=== PATIENT | male | born 1960 | race Caucasian/White ===

== ENCOUNTER 2017-09-29 10:28 | Emergency (ER) | payer SELFPAY ==
[~2017-09-29] VITALS: Ht 172.7 cm; Wt 65.0 kg
[~2017-09-29 10:28] MED LIST: OXYC1TAB63 PO
[2017-09-29 10:29] VITALS: BP 149/93; PULSE 116; RESP 20; TEMP 98; O2SAT 95
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
--- NOTE | 2017-09-29 13:51 | RADRPT ---
EXAM DATE/TIME: 09/29/2017 12:46 [facility] COMPARISON: SPINE CERVICAL LATERAL ONLY, September 13, 2017, 10:49. CT CERVICAL SPINE W/O CONTRAST, September 26 17, 23:19. CT CERVICAL SPINE W/O CONTRAST, September 13, 2017, 4:03. INDICATIONS : Fracture C1-C2 halo. Loose halo screws. MEDICAL HISTORY : C1-C2 fractures SURGICAL HISTORY : Halo cervical spine. ENCOUNTER: Initial ACUITY: 2 days PAIN SCORE: 7/10 LOCATION: Cervical spine FINDINGS: AP and lateral view of the cervical spine were obtained as well as odontoid views again demonstrate t he oblique fracture through the body of C2. The alignment of the fracture fragments is not significan tly changed. There is distraction measuring up to approximately 8 mm. The fracture through the arch o f C1 is again visualized and is not significantly changed as well. Artifact from the halo traction de vice is noted. There are degenerative disc changes at the C5-6 and C6-7 levels. Calcifications are no sony in the carotid arteries left greater than right. CONCLUSION: Stable appearance of the C1 and C2 fractures. Vikram Santo MD on September 29, 2017 at 13:47 Board Certified Radiologist. This report was verified electronically.
== END 2017-09-29 14:12 | disposition home or self-care (01) ==
LOC: NEPD 10:28
DX: S12.300D Unspecified displaced fracture of fourth cervical vertebra, subsequent encounter for fracture with routine healing (principal); S12.400D Unspecified displaced fracture of fifth cervical vertebra, subsequent encounter for fracture with routine healing; X58.XXXD Exposure to other specified factors, subsequent encounter
CPT/HCPCS: 72040; 99283

== ENCOUNTER 2017-11-11 02:49 | Inpatient (IN) | payer SELFPAY ==
[~2017-11-11] VITALS: Ht 170.2 cm; Wt 72.2 kg
[2017-11-11 02:55] VITALS: BP 155/84; PULSE 97; RESP 16; TEMP 98.2; O2SAT 97
--- NOTE | 2017-11-11 05:00 | RADRPT ---
EXAM DATE/TIME: 11/11/2017 03:54 [facility] COMPARISON: No previous studies available for comparison. INDICATIONS : Trauma; fall. RADIATION DOSE: 56.35 CTDIvol (mGy) MEDICAL HISTORY : C1-2 fracture SURGICAL HISTORY : Halo ENCOUNTER: Initial ACUITY: 1 day PAIN SCALE: 5/10 LOCATION: Bilateral cranial TECHNIQUE: Multiple contiguous axial images were obtained of the head. Using automated exposure control and adj ustment of the mA and/or kV according to patient size, radiation dose was kept as low as reasonably a chievable to obtain optimal diagnostic quality images. DICOM format image data is available electro nically for review and comparison. FINDINGS: The examination is performed in an external halo which causes streak artifact at the mid convexity im ages, obscuring several levels in the brain.. The ventricles are symmetric in size. No evidence of midline shift. No evidence of intracranial hemorrhage. The posterior fossa structures are grossly i ntact. The calvarium is intact. No skull fracture seen. CONCLUSION: No evidence of hemorrhage or mass effect. No skull fracture seen. Francisco Iyer MD on November 11, 2017 at 4:57 Board Certified Radiologist. This report was verified electronically.
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
[2017-11-11] MEDS ORDERED: PROMETHAZINE INJ 25 MG/ML VIAL IM PRN (05:45)
[2017-11-11] MEDS ORDERED: NALOXONE HCL 0.4 MG/ML AMP IV PUSH PRN (05:45)
[2017-11-11 05:57] VITALS: BP 141/89; PULSE 91; RESP 16; O2SAT 96
[2017-11-11 06:04] LABS: AUTOMATED NEUTROPHIL # 2.9 TH/MM3 (1.8-7.7); BASOPHIL % 0.7 % (0.0-2.0); EOSINOPHIL # 0.2 TH/MM3 (0-0.4); HEMATOCRIT 39.5 % (39.0-51.0); HEMO FLAGS DIFF FINAL; LYMPH % 34.7 % (9.0-44.0); MEAN CELL VOLUME 96.9 FL (80.0-100.0); MEAN CORPUSCULAR HEMOGLOBIN 33.2 PG (27.0-34.0); MEAN CORPUSCULAR HGB CONC 34.2 % (32.0-36.0); MONO % 10.8 % (0.0-8.0); NEUT % 49.8 % (16.0-70.0); PLATELET COUNT 196 TH/MM3 (150-450); RED BLOOD COUNT 4.08 MIL/MM3 (4.50-5.90); RED CELL DISTRIBUTION WIDTH 13.7 % (11.6-17.2); WHITE BLOOD COUNT 5.9 TH/MM3 (4.0-11.0)
[2017-11-11 06:31] LABS: ALT (GPT) 18 U/L (12-78)
[2017-11-11 06:33] LABS: ALKALINE PHOSPHATASE 101 U/L (45-117); ANION GAP 10 MEQ/L (5-15); AST (GOT) 28 U/L (15-37); BICARBONATE 23.7 MEQ/L (21.0-32.0); BLOOD UREA NITROGEN 13 MG/DL (7-18); CHLORIDE 104 MEQ/L (98-107); GLOMERULAR FILTRATION RATE 108 ML/MIN (>89); POTASSIUM 3.9 MEQ/L (3.5-5.1); SODIUM (NA) 138 MEQ/L (136-145); TOTAL BILIRUBIN ADULT 0.2 MG/DL (0.2-1.0)
[2017-11-11] MEDS: ACETAMINOPHEN/HYDROcodone 325 MG/5 MG TAB PO PRN ×3 (08:08→21:05)
[2017-11-11] MEDS: PANTOPRAZOLE SOD 40 MG DELAYED RELEASE TAB PO SCH (09:29)
[2017-11-11] MEDS: DOCUSATE SODIUM 100 MG CAP PO SCH ×2 (09:29→21:04)
[2017-11-11 09:30] VITALS: BP 135/84; PULSE 103; RESP 16; O2SAT 99
[2017-11-11] MEDS ORDERED: LIDOCAINE 1%/EPINEPHrine 1:100,000 SOLN 20 ML VIAL INFIL ONE (11:30)
[2017-11-11] MEDS ORDERED: BACT800T5 PO (13:05)
[2017-11-11 13:32] VITALS: BP 161/89; PULSE 112; RESP 18; O2SAT 96
--- NOTE | 2017-11-11 13:37 | RADRPT ---
EXAM DATE/TIME: 11/11/2017 13:06 [facility] COMPARISON: SPINE CERVICAL LTD (AP&LAT), September 29, 2017, 12:46. INDICATIONS : Halo replacement. MEDICAL HISTORY : C1-2 fracture. SURGICAL HISTORY : Halo. ENCOUNTER: Initial ACUITY: 1 day PAIN SCORE: 9/10 LOCATION: Cervical spine. FINDINGS: AP and lateral views of the cervical spine were obtained. There is redemonstration of an oblique frac ture through the body of C2. Fracture alignment is not significantly changed with stable approximatel y 7mm anterior distraction of the distal fragment. Redemonstration of fracture through the arch of C1 which also appears unchanged. There is a halo device in place. Degenerative change of the lower cerv ical spine also unchanged. No new acute bony fractures. Sagittal alignment is maintained. CONCLUSION: 1. Stable appearance of C1 and C2 fractures, as above. Pierre Vázquez MD on November 11, 2017 at 13:26 Board Certified Radiologist. This report was verified electronically.
[2017-11-11 16:00] VITALS: BP 167/94; PULSE 93; RESP 16; TEMP 98; O2SAT 95
[2017-11-11] MEDS: VANCOMYCIN INJ 1,000 MG in SODIUM CHLOR 0.9% 250 ML INJ 250 ML IV SCH (16:00)
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
--- NOTE | 2017-11-11 19:11 | PD.OP ---
Operative Report Date of Surgery: Nov 11, 2017 Preoperative Diagnosis: (1) Traumatic disp spondylolisthesis of C2 vertebra with closed fracture Traumatic displaced spondylolisthesis of the axis with C1 arch fracture Postoperative Diagnosis: (1) Traumatic disp spondylolisthesis of C2 vertebra with closed fracture Procedure: Halo placement Anesthesia: 1% Xylocaine local anesthetic Surgeon: Atul Duran [employer] Worker(s): [employer] Operation and Findings: The treatment options, procedure indications, risks and possible complications were fully discussed with the patient prior to the procedure and informed consent obtained signed and witnessed. The procedure was performed in the [facility] emergency room. The occipital pin site regions were shaved in the frontal and occipital regions were prepped with Betadine. Using sterile technique, 1% Xylocaine with epinephrine was infiltrated into the pin placement sites at the frontal and occipital regions. The undersigned maintained control of the halo ring and the pins were advanced to the cranium and secured with the torque wrench in the bilateral frontal and occipital region. The halo jacket was placed and the post secured to the halo ring in each quadrant and tightened using the torque wrench. The locking nuts were secured each pin site. Head position was checked and felt to be satisfactory. Patient's neurologic status remained stable during the procedure. There was no blood loss. Atul Duran MD Nov 11, 2017 19:11
[2017-11-11 20:00] VITALS: BP 165/87; PULSE 95; RESP 18; TEMP 97.6; O2SAT 98
[2017-11-11] MEDS: traMADol HCL 50 MG TAB PO PRN (23:38)
[2017-11-12] VITALS (7 sets, daily range): BP systolic 149–183; BP diastolic 82–106; PULSE 77–105; RESP 18–20; TEMP 97.8–99.1; O2SAT 95–100
[2017-11-12] MEDS: ACETAMINOPHEN/HYDROcodone 325 MG/5 MG TAB PO PRN ×6 (02:17→23:15)
[2017-11-12] MEDS ORDERED: ENALAPRILAT 1.25 MG/ML VIAL IV PUSH PRN (05:45)
[2017-11-12] MEDS: VANCOMYCIN INJ 1,000 MG in SODIUM CHLOR 0.9% 250 ML INJ 250 ML IV SCH ×2 (06:05→15:06)
[2017-11-12 08:12] LABS: PROTHROMBIN TIME - PATIENT 10.1 SEC (9.8-11.6)
[2017-11-12] MEDS: PANTOPRAZOLE SOD 40 MG DELAYED RELEASE TAB PO SCH (08:33)
[2017-11-12] MEDS: DOCUSATE SODIUM 100 MG CAP PO SCH ×2 (08:33→21:01)
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
[2017-11-13] VITALS: BP 153/94; PULSE 85; RESP 18; TEMP 98; O2SAT 95
[2017-11-13] MEDS: ACETAMINOPHEN/HYDROcodone 325 MG/5 MG TAB PO PRN ×5 (03:59→21:27)
[2017-11-13 04:00] VITALS: BP 168/98; PULSE 86; RESP 18; TEMP 97.9; O2SAT 97
[2017-11-13] MEDS: VANCOMYCIN INJ 1,000 MG in SODIUM CHLOR 0.9% 250 ML INJ 250 ML IV SCH ×2 (04:00→15:08)
[2017-11-13 06:17] LABS: HEMATOCRIT 37.8 % (39.0-51.0); MEAN CORPUSCULAR HEMOGLOBIN 33.6 PG (27.0-34.0); MEAN CORPUSCULAR HGB CONC 34.3 % (32.0-36.0); PLATELET COUNT 152 TH/MM3 (150-450); RED BLOOD COUNT 3.86 MIL/MM3 (4.50-5.90); RED CELL DISTRIBUTION WIDTH 14.1 % (11.6-17.2); REVIEW FLAG FINAL; WHITE BLOOD COUNT 4.5 TH/MM3 (4.0-11.0)
[2017-11-13] MEDS: DOCUSATE SODIUM 100 MG CAP PO SCH ×2 (08:01→21:26)
[2017-11-13] MEDS: PANTOPRAZOLE SOD 40 MG DELAYED RELEASE TAB PO SCH (08:01)
[2017-11-13 08:09] VITALS: BP 168/109; PULSE 89; RESP 20; TEMP 97.8; O2SAT 97
[2017-11-13 12:18] VITALS: BP 142/87; PULSE 90; RESP 20; TEMP 98; O2SAT 98
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
[2017-11-13 16:27] VITALS: BP 151/91; PULSE 88; RESP 20; TEMP 98.1; O2SAT 98
[2017-11-13 20:00] VITALS: BP 145/84; PULSE 97; RESP 20; TEMP 98.3
[2017-11-14 00:14] VITALS: BP 148/81; PULSE 82; RESP 20; TEMP 98.3; O2SAT 97
[2017-11-14] MEDS: ACETAMINOPHEN/HYDROcodone 325 MG/5 MG TAB PO PRN ×5 (01:36→20:07)
[2017-11-14] MEDS: VANCOMYCIN INJ 1,000 MG in SODIUM CHLOR 0.9% 250 ML INJ 250 ML IV SCH ×2 (04:20→15:29)
[2017-11-14 04:29] VITALS: BP 149/98; PULSE 97; RESP 20; TEMP 97.5; O2SAT 98
[2017-11-14 08:00] VITALS: BP 158/96; PULSE 79; RESP 18; TEMP 98.4; O2SAT 97
[2017-11-14] MEDS: DOCUSATE SODIUM 100 MG CAP PO SCH ×2 (08:08→20:07)
[2017-11-14] MEDS: PANTOPRAZOLE SOD 40 MG DELAYED RELEASE TAB PO SCH (08:08)
[2017-11-14 12:00] VITALS: BP 126/85; PULSE 88; RESP 18; TEMP 97.4; O2SAT 97
[2017-11-14] MEDS: traMADol HCL 50 MG TAB PO PRN ×2 (12:19→21:17)
[2017-11-14 16:00] VITALS: BP 157/88; PULSE 89; RESP 18; TEMP 97.8; O2SAT 97
--- NOTE | 2017-11-14 16:10 | HHI.NSPN ---
no complaints History Chief Complaint: Pain to the pin sites but it is better. Interval History No change Feeling better System Review Comments no change Exam Results Vital Signs Date Time Temp Pulse Resp B/P (MAP) Pulse Ox O2 Delivery O2 Flow Rate FiO2 11/14/17 12:00 97.4 88 18 126/85 (99) 97 11/11/17 13:32 Room Air Intake and Output 11/14/17 11/14/17 11/15/17 08:00 16:00 00:00 Intake Total 250 ml Balance 250 ml Physical Examination Alert and awake. Follows commands In halo vest Infected pin sites much improved Ambulates well Medical Decision Making Impression and Plan Doing well P: Arrangements for discharge not complete Total Minutes: 15 Alex Rm MD Nov 14, 2017 16:10
[2017-11-14 20:00] VITALS: BP 139/90; PULSE 88; RESP 20; TEMP 98; O2SAT 97
[2017-11-15] VITALS: BP 148/91; PULSE 78; RESP 18; TEMP 98; O2SAT 98
[2017-11-15] MEDS: ACETAMINOPHEN/HYDROcodone 325 MG/5 MG TAB PO PRN ×5 (00:18→20:06)
[2017-11-15 04:00] VITALS: BP 135/94; PULSE 76; RESP 18; TEMP 97.7; O2SAT 97
[2017-11-15] MEDS: VANCOMYCIN INJ 1,000 MG in SODIUM CHLOR 0.9% 250 ML INJ 250 ML IV SCH ×2 (04:19→16:12)
[2017-11-15 08:00] VITALS: BP 132/76; PULSE 87; RESP 18; TEMP 97.8; O2SAT 96
[2017-11-15] MEDS: DOCUSATE SODIUM 100 MG CAP PO SCH ×2 (09:05→20:06)
[2017-11-15] MEDS: PANTOPRAZOLE SOD 40 MG DELAYED RELEASE TAB PO SCH (09:05)
[2017-11-15 12:00] VITALS: BP 123/71; PULSE 71; RESP 18; TEMP 98.3; O2SAT 98
--- NOTE | 2017-11-15 13:03 | HHI.NSPN ---
History Chief Complaint: No complaints Interval History No change Feeling better Sitting in bed System Review Comments no change Exam Results Vital Signs Date Time Temp Pulse Resp B/P (MAP) Pulse Ox O2 Delivery O2 Flow Rate FiO2 11/15/17 12:00 98.3 71 18 123/71 (88) 98 11/11/17 13:32 Room Air Physical Examination Alert and awake. Follows commands In halo vest Infected pin sites much improved Ambulates well On IV Vanco Medical Decision Making Impression and Plan Doing well P: Disposition to be completed Total Minutes: 15 Alex Rm MD Nov 15, 2017 13:03
[2017-11-15 16:00] VITALS: BP 132/87; PULSE 92; RESP 18; TEMP 98.5; O2SAT 96
[2017-11-15] MEDS: traMADol HCL 50 MG TAB PO PRN ×2 (17:33→21:38)
[2017-11-15 20:00] VITALS: BP 133/80; PULSE 84; RESP 18; TEMP 98.7; O2SAT 96
[2017-11-16] VITALS: BP 149/91; PULSE 76; RESP 18; TEMP 97.8; O2SAT 98
[2017-11-16] MEDS: ACETAMINOPHEN/HYDROcodone 325 MG/5 MG TAB PO PRN ×3 (00:13→08:35)
[2017-11-16] MEDS: traMADol HCL 50 MG TAB PO PRN ×4 (01:41→20:24)
[2017-11-16 04:30] VITALS: BP 152/95; PULSE 76; RESP 18; TEMP 98.7; O2SAT 97
[2017-11-16] MEDS: VANCOMYCIN INJ 1,000 MG in SODIUM CHLOR 0.9% 250 ML INJ 250 ML IV SCH (04:31)
[2017-11-16 08:16] VITALS: BP 142/92; PULSE 78; RESP 18; TEMP 97.3; O2SAT 96
[2017-11-16] MEDS: PANTOPRAZOLE SOD 40 MG DELAYED RELEASE TAB PO SCH (08:36)
[2017-11-16] MEDS: DOCUSATE SODIUM 100 MG CAP PO SCH ×2 (08:37→20:24)
[2017-11-16 12:28] VITALS: BP 118/77; PULSE 79; RESP 17; TEMP 97.6; O2SAT 95
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
[2017-11-16 16:51] VITALS: BP 123/86; PULSE 86; RESP 18; TEMP 97.7; O2SAT 97
[2017-11-16 20:00] VITALS: BP 132/81; PULSE 91; RESP 18; TEMP 98.2; O2SAT 97
[2017-11-17] VITALS: BP 137/78; PULSE 73; RESP 18; TEMP 98.1; O2SAT 97
[2017-11-17] MEDS: traMADol HCL 50 MG TAB PO PRN ×4 (00:33→21:14)
[2017-11-17 04:00] VITALS: BP 126/81; PULSE 71; RESP 18; TEMP 97; O2SAT 98
[2017-11-17 08:06] VITALS: BP 131/89; PULSE 76; RESP 18; TEMP 97.3; O2SAT 97
[2017-11-17] MEDS: PANTOPRAZOLE SOD 40 MG DELAYED RELEASE TAB PO SCH (09:10)
[2017-11-17] MEDS: DOCUSATE SODIUM 100 MG CAP PO SCH ×2 (09:10→21:14)
[2017-11-17] MEDS: ACETAMINOPHEN/HYDROcodone 325 MG/5 MG TAB PO PRN ×3 (09:11→17:34)
[2017-11-17 12:31] VITALS: BP 128/79; PULSE 81; RESP 18; TEMP 98; O2SAT 96
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
[2017-11-17 16:07] VITALS: BP 127/80; PULSE 90; RESP 17; TEMP 98.2; O2SAT 96
[2017-11-17 20:00] VITALS: BP 138/78; PULSE 90; RESP 18; TEMP 98.1; O2SAT 97
[2017-11-18] VITALS: BP 138/82; PULSE 77; RESP 18; TEMP 97.4; O2SAT 97
[2017-11-18] MEDS: traMADol HCL 50 MG TAB PO PRN ×4 (01:22→16:49)
[2017-11-18 04:00] VITALS: BP 122/78; PULSE 75; RESP 18; TEMP 97.3; O2SAT 95
[2017-11-18 08:00] VITALS: BP 131/87; PULSE 82; RESP 18; TEMP 97.2; O2SAT 97
[2017-11-18] MEDS: DOCUSATE SODIUM 100 MG CAP PO SCH ×2 (08:11→21:16)
[2017-11-18] MEDS: PANTOPRAZOLE SOD 40 MG DELAYED RELEASE TAB PO SCH (08:13)
[2017-11-18 12:00] VITALS: BP 131/85; PULSE 79; RESP 18; TEMP 97.9; O2SAT 98
[2017-11-18 16:39] VITALS: BP 136/88; PULSE 91; RESP 18; TEMP 97.9; O2SAT 98
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
[2017-11-18 21:16] VITALS: BP 133/74; PULSE 86; RESP 16; TEMP 98.2; O2SAT 98
[2017-11-18] MEDS: ACETAMINOPHEN/HYDROcodone 325 MG/5 MG TAB PO PRN (21:16)
[2017-11-19 00:31] VITALS: BP 135/84; PULSE 81; RESP 16; TEMP 98.3; O2SAT 98
[2017-11-19] MEDS: ACETAMINOPHEN/HYDROcodone 325 MG/5 MG TAB PO PRN ×2 (01:19→07:54)
[2017-11-19 05:22] VITALS: BP 129/83; PULSE 74; RESP 16; TEMP 97.5; O2SAT 98
[2017-11-19 08:01] VITALS: BP 113/74; PULSE 79; RESP 20; TEMP 97.4; O2SAT 98
[2017-11-19] MEDS: PANTOPRAZOLE SOD 40 MG DELAYED RELEASE TAB PO SCH (08:35)
[2017-11-19] MEDS: DOCUSATE SODIUM 100 MG CAP PO SCH (08:35)
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
--- NOTE | 2017-11-19 09:52 | HHI.FF ---
Face to Face Verification Diagnosis: (1) Traumatic disp spondylolisthesis of C2 vertebra with closed fracture (2) ETOH abuse Home Health Nursing Order: Signs/symptoms of disease process Wound care and dressing changes Nursing assessment with vital signs I have seen patient Jag Addison on 11/19/17. My clinical findings support the need for the requested home health care services because: Deconditioned w/ increased weakness High risk of falls I certify that my clinical findings support that this patient is homebound because: Unable to use public transportation Familia Richardson Nov 19, 2017 9:52 am
[2017-11-19] MEDS: traMADol HCL 50 MG TAB PO PRN (12:22)
[2017-11-19 12:38] VITALS: BP 108/69; PULSE 90; RESP 20; TEMP 97.3; O2SAT 98
[2017-11-19 13:27] VITALS: RESP 16
--- NOTE | 2017-11-19 14:29 | HHI.FF ---
Face to Face Verification Diagnosis: (1) Traumatic disp spondylolisthesis of C2 vertebra with closed fracture (2) ETOH abuse Home Health Nursing Order: Signs/symptoms of disease process Nursing assessment with vital signs (pin site care bid with saline and hydrogen peroxide.) I have seen patient Jag Addison on 11/19/17. My clinical findings support the need for the requested home health care services because: Deconditioned w/ increased weakness High risk of falls I certify that my clinical findings support that this patient is homebound because: Post-op weakness Unable to use public transportation Familia Richardson Nov 19, 2017 2:29 pm
--- NOTE | 2017-11-19 14:32 | HHI.FF ---
Face to Face Verification Diagnosis: (1) Cellulitis (2) Traumatic disp spondylolisthesis of C2 vertebra with closed fracture [employer] Order: To Evaluate: Living conditions/environment, Support services Order: To Provide: Long range planning, Community services I have seen patient Jag Addison on 11/19/17. My clinical findings support the need for the requested home health care services because: Deconditioned w/ increased weakness High risk of falls I certify that my clinical findings support that this patient is homebound because: Post-op weakness Unable to use public transportation Familia Richardson Nov 19, 2017 2:32 pm
== END 2017-11-19 14:51 | disposition home health service (06) | DRG 560 ==
LOC: NEPE 02:49 → NEDA 05:29 → OBSVTOIN 13:59 → N05A 15:22
PROVIDERS: ADMIT Neurological Surgery; ATTEND Neurological Surgery
PROC: 2W60X0Z Traction of Head using Traction Apparatus (ICD-10-PCS; principal; 2017-11-11)
PROC: 2W50X0Z Removal of Traction Apparatus on Head (ICD-10-PCS; 2017-11-11)
DX: T84.69XA Infection and inflammatory reaction due to internal fixation device of other site, initial encounter (principal); T85.628A Displacement of other specified internal prosthetic devices, implants and grafts, initial encounter; I10 Essential (primary) hypertension; G62.9 Polyneuropathy, unspecified; S12.13 Unspecified traumatic spondylolisthesis of second cervical vertebra; S12.000G Unspecified displaced fracture of first cervical vertebra, subsequent encounter for fracture with delayed healing; S12.390D Other displaced fracture of fourth cervical vertebra, subsequent encounter for fracture with routine healing; S12.0 Fracture of first cervical vertebra; E11.9 Type 2 diabetes mellitus without complications; I49.9 Cardiac arrhythmia, unspecified; F10.10 Alcohol abuse, uncomplicated; F17.210 Nicotine dependence, cigarettes, uncomplicated; F32.9 Major depressive disorder, single episode, unspecified; F41.9 Anxiety disorder, unspecified; W19.XXXA Unspecified fall, initial encounter; V13.4XXD Pedal cycle driver injured in collision with car, pick-up truck or van in traffic accident, subsequent encounter; Y93.55 Activity, bike riding; Z59.0 Homelessness; Z88.0 Allergy status to penicillin; Z91.19 Patient's noncompliance with other medical treatment and regimen
CPT/HCPCS: 70450; 72040; 72125; 80053; 85025; 85027; 85610; 86403; 87070; 87205; 94150; J3010; J3370; J7050; L0150; L0172; L0810

== ENCOUNTER 2017-11-21 15:20 | Emergency (ER) | payer SELFPAY ==
[~2017-11-21] VITALS: Ht 170.2 cm; Wt 72.5 kg
[~2017-11-21 15:20] MED LIST changes: +BACT800T5 PO; -OXYC1TAB63 PO
[2017-11-21 15:25] VITALS: BP 103/67; PULSE 106; RESP 14; TEMP 98.2; O2SAT 99
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
[2017-11-21] MEDS ORDERED: HYDR-3516 PO (18:10)
[2017-11-21] MEDS ORDERED: ACETAMINOPHEN/HYDROcodone 325 MG/5 MG TAB PO ONE (18:15)
== END 2017-11-21 18:52 | disposition home or self-care (01) ==
LOC: NEPD 15:20
DX: M54.2 Cervicalgia (principal); R51 Headache; E11.9 Type 2 diabetes mellitus without complications; E78.00 Pure hypercholesterolemia, unspecified; F32.9 Major depressive disorder, single episode, unspecified; F41.9 Anxiety disorder, unspecified; F17.200 Nicotine dependence, unspecified, uncomplicated; F12.90 Cannabis use, unspecified, uncomplicated
CPT/HCPCS: 99283

== ENCOUNTER 2017-11-23 13:01 | Emergency (ER) | payer OTHER ==
[~2017-11-23] VITALS: Ht 162.6 cm; Wt 70.0 kg
[~2017-11-23 13:01] MED LIST changes: +HYDR-3516 PO
[2017-11-23 13:28] VITALS: BP 122/77; PULSE 93; RESP 15; TEMP 97.9; O2SAT 96
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
[2017-11-23] MEDS ORDERED: HYDR7.5T76 PO (14:57)
== END 2017-11-23 15:30 | disposition home or self-care (01) ==
LOC: NEPE 13:01
DX: R52 Pain, unspecified (principal); S12.9XXD Fracture of neck, unspecified, subsequent encounter; F41.9 Anxiety disorder, unspecified; F32.9 Major depressive disorder, single episode, unspecified; E78.00 Pure hypercholesterolemia, unspecified; E11.9 Type 2 diabetes mellitus without complications; F17.200 Nicotine dependence, unspecified, uncomplicated; V03.90XA Pedestrian on foot injured in collision with car, pick-up truck or van, unspecified whether traffic or nontraffic accident, initial encounter; X58.XXXD Exposure to other specified factors, subsequent encounter
CPT/HCPCS: 70450; 72110; 72125; 99285

== ENCOUNTER 2017-11-27 21:44 | Emergency (ER) | payer SELFPAY ==
[~2017-11-27] VITALS: Ht 170.2 cm; Wt 64.0 kg
[~2017-11-27 21:44] MED LIST changes: +HYDR7.5T76 PO
[2017-11-27 21:50] VITALS: BP 138/97; PULSE 81; RESP 18; TEMP 97.7; O2SAT 98
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
== END 2017-11-27 23:18 | disposition home or self-care (01) ==
LOC: NEPD 21:44
DX: S09.90XA Unspecified injury of head, initial encounter (principal); F41.9 Anxiety disorder, unspecified; F32.9 Major depressive disorder, single episode, unspecified; E78.00 Pure hypercholesterolemia, unspecified; F17.200 Nicotine dependence, unspecified, uncomplicated; W10.1XXA Fall (on)(from) sidewalk curb, initial encounter; W01.0XXA Fall on same level from slipping, tripping and stumbling without subsequent striking against object, initial encounter
CPT/HCPCS: 70450; 72125; 99285

== ENCOUNTER 2017-12-11 01:08 | Emergency (ER) | payer SELFPAY ==
[~2017-12-11] VITALS: Ht 177.8 cm; Wt 75.0 kg
[2017-12-11 01:18] VITALS: BP 118/80; PULSE 82; RESP 16; TEMP 96.7; O2SAT 99
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
[2017-12-19] MEDS ORDERED: CHLO10CA5 PO (04:15)
== END 2017-12-11 02:56 | disposition home or self-care (01) ==
LOC: NEPD 01:08
DX: Z04.3 Encounter for examination and observation following other accident (principal); Y04.8XXA Assault by other bodily force, initial encounter; Y92.512 Supermarket, store or market as the place of occurrence of the external cause
CPT/HCPCS: 99281

== ENCOUNTER 2017-12-18 20:37 | Emergency (ER) | payer SELFPAY ==
[2017-12-18 21:45] LABS: ALCOHOL 393 MG/DL (0-5)
[2017-12-19] MEDS: ACETAMINOPHEN 325 MG TAB PO (02:18)
[2017-12-19] MEDS: LORazepam 2 MG/ML VIAL IV PUSH (03:56)
== END 2017-12-19 05:06 | disposition home or self-care (01) ==
LOC: PHED 12-19 05:06
DX: S12.130A Unspecified traumatic displaced spondylolisthesis of second cervical vertebra, initial encounter for closed fracture (principal); Y33.XXXA Other specified events, undetermined intent, initial encounter; Y92.512 Supermarket, store or market as the place of occurrence of the external cause; F10.20 Alcohol dependence, uncomplicated; Z72.0 Tobacco use
CPT/HCPCS: 70450; 72125; 80307; 96374; 99285-25

== ENCOUNTER 2017-12-19 11:46 | Observation (INO) | payer SELFPAY ==
[~2017-12-19] VITALS: Ht 170.2 cm; Wt 74.0 kg
[~2017-12-19 11:46] MED LIST changes: -BACT800T5 PO; +CHLO10CA5 PO; -HYDR-3516 PO; -HYDR7.5T76 PO
[2017-12-19 11:52] VITALS: BP 140/81; PULSE 73; RESP 19; TEMP 97.5; O2SAT 97
--- NOTE | 2017-12-19 11:57 | PD ---
HPI Chief Complaint: alcohol intoxication Time Seen by Provider: 11:50 Travel History International Travel<30 days: No Contact w/Intl Traveler<30days: No Traveled to known affect area: No History of Present Illness HPI The patient is a 57-year-old male who presents to the emergency department for alcohol intoxication. [facility], apparently intoxicated. The patient does admit to drinking alcohol today. The patient has a history of recent cervical fractures, underwent halo therapy and is now wearing a collar. The patient was seen at [facility] last night where he had a CT the brain and cervical spine obtained, these images were reviewed by Dr. Duran who states it is stable, and the patient was advised to follow-up with a neurosurgeon on an outpatient basis. It was also noted the patient missed his appointment in October with follow-up in regards to neurosurgery. He denies any acute injury since he was evaluated last night, does admit to drinking alcohol. He is requesting Tylenol for his chronic neck pain and something to drink. He denies any weakness or numbness of the upper or lower extremities. He denies any chest pain, shortness breath, nausea, vomiting, or abdominal pain. PFSH Past Medical History Asthma: No Blood Disorders: Yes Anxiety: Yes Depression: Yes Heart Rhythm Problems: Yes Cancer: No Cardiovascular Problems: No High Cholesterol: Yes Chemotherapy: Yes Chest Pain: Yes Congestive Heart Failure: No COPD: No Diabetes: No (DENIED) Diminished Hearing: No Endocrine: No Gastrointestinal Disorders: No Genitourinary: No Hypertension: No Immune Disorder: No Implanted Vascular Access Dvce: Yes (halo) Musculoskeletal: No Neurologic: No Psychiatric: No Reproductive: No Respiratory: No Immunizations Current: Yes Radiation Therapy: No Sleep Apnea: No Thyroid Disease: No Past Surgical History Neurologic Surgery: Yes (HALO) Other Surgery: Yes (right tesitcle removed) Social History Alcohol Use: Yes (DAILY) Tobacco Use: Yes (1/2 PPD) Substance Use: No Allergies-Medications (Allergen,Severity, Reaction): Coded Allergies: Fish Containing Products (Unverified Allergy, Severe, Anaphylaxis, 12/19/17 ) penicillin G (Unverified Allergy, Unknown, 12/19/17) Reported Meds & Prescriptions Reported Meds & Active Scripts Active No Active Prescriptions or Reported Medications Review of Systems Except as stated in HPI: all other systems reviewed are Neg HENT: Positive: Neck Pain (chronic neck pain status post halo placement and removal) Cardiovascular: No: Chest Pain or Discomfort Respiratory: No: Shortness of Breath Gastrointestinal: No: Nausea, Vomiting, Abdominal Pain Neurologic: No: Headache, Paresthesia, Sensory Disturbance Physical Exam Narrative GENERAL: Awake, alert, nontoxic-appearing 57-year-old male who appears his stated age and is in no acute respiratory distress. He does appear disheveled and intoxicated. SKIN: Focused skin assessment warm/dry. HEAD: Atraumatic. Normocephalic. EYES: Pupils equal and round. Mild injection bilaterally. ENT: No nasal bleeding or discharge. Breath smells of alcohol. NECK: Trachea midline. No JVD. Soft collar in place. CARDIOVASCULAR: Regular rate and rhythm. No murmur appreciated. RESPIRATORY: No accessory muscle use. Clear to auscultation. Breath sounds equal bilaterally. GASTROINTESTINAL: Abdomen soft, non-tender, nondistended. MUSCULOSKELETAL: No obvious deformities. No clubbing. No cyanosis. No edema. NEUROLOGICAL: Awake and alert. No obvious cranial nerve deficits. Motor grossly within normal limits. Normal speech. Nonfocal. Oriented 3. Moves his upper and lower extremities without difficulty. PSYCHIATRIC: Appears intoxicated. Data Data Last Documented VS Vital Signs Date Time Temp Pulse Resp B/P (MAP) Pulse Ox O2 Delivery O2 Flow Rate FiO2 12/19/17 11:52 97.5 73 19 140/81 (100) 97 Orders Orders Alcohol (Ethanol) (12/19/17 11:53) Basic Metabolic Panel (Bmp) (12/19/17 11:53) Acetaminophen (Tylenol) (12/19/17 12:00) Labs Laboratory Tests Test 12/19/17 12:05 Blood Urea Nitrogen 9 MG/DL Creatinine 0.74 MG/DL Random Glucose 89 MG/DL Calcium Level 8.7 MG/DL Sodium Level 138 MEQ/L Potassium Level 4.3 MEQ/L Chloride Level 102 MEQ/L Carbon Dioxide Level 25.0 MEQ/L Anion Gap 11 MEQ/L Estimat Glomerular Filtration Rate 110 ML/MIN Ethyl Alcohol Level 384 MG/DL MDM Medical Decision Making Medical Screen Exam Complete: Yes Emergency Medical Condition: Yes Medical Record Reviewed: Yes Interpretation(s) Laboratory Tests Test 12/19/17 12:05 Blood Urea Nitrogen 9 MG/DL Creatinine 0.74 MG/DL Random Glucose 89 MG/DL Calcium Level 8.7 MG/DL Sodium Level 138 MEQ/L Potassium Level 4.3 MEQ/L Chloride Level 102 MEQ/L Carbon Dioxide Level 25.0 MEQ/L Anion Gap 11 MEQ/L Estimat Glomerular Filtration Rate 110 ML/MIN Ethyl Alcohol Level 384 MG/DL Differential Diagnosis Differential diagnosis includes alcohol intoxication, chronic neck pain, recent cervical fractures, hyponatremia, inability to care for self, alcohol abuse. Narrative Course Labs are drawn and sent. The patient was administered Tylenol orally for pain. I reviewed the patient's CT of the brain and neck that he had performed last night as well as the physician's note and conversation with neurosurgery. The patient denies any acute trauma, no indication for acute imaging. Sodium level is normal, however, alcohol levels noted at 384. Patient was allowed to sleep off the alcohol in the emergency department as he is homeless and has no family or friends he can pick him up to take him to a place of residence. He is advised to stop drinking alcohol heavily and a follow-up at [facility]. He is also advised to follow-up with neurosurgery as previously directed. Diagnosis Primary Impression: Alcohol intoxication Qualified Codes: F10.920 - Alcohol use, unspecified with intoxication, uncomplicated Additional Impression: Traumatic disp spondylolisthesis of C2 vertebra with closed fracture Qualified Codes: S12.130G - Unspecified traumatic displaced spondylolisthesis of second cervical vertebra, subsequent encounter for fracture with delayed healing Patient Instructions: General Instructions Additional Instructions: Decrease alcohol use. Follow-up with neurosurgery and stroke [facility]'s previously directed. Scripts No Active Prescriptions or Reported Meds Disposition: 01 DISCHARGE HOME Condition: Stable Brice Oviedo MD Dec 19, 2017 11:57
[2017-12-19] MEDS ORDERED: ACETAMINOPHEN 325 MG TAB PO ONE (12:00)
[2017-12-19 12:44] LABS: CALCIUM 8.7 MG/DL (8.5-10.1); CREATININE 0.74 MG/DL (0.60-1.30)
[2017-12-19 16:00] VITALS: BP 121/86; PULSE 77; RESP 16; O2SAT 94
[2017-12-19 19:26] VITALS: BP 130/86; PULSE 78; RESP 18; O2SAT 99
[2017-12-20] VITALS (9 sets, daily range): BP systolic 140–161; BP diastolic 80–90; PULSE 72–104; RESP 18–20; TEMP 97.9–98.4; O2SAT 94–97
[2017-12-20] MEDS ORDERED: chlordiazePOXIDE 25 MG CAP PO ONE (02:15)
[2017-12-20] MEDS ORDERED: LORazepam 2 MG/ML VIAL IV PUSH ONE (02:15)
--- NOTE | 2017-12-20 04:49 | PD ---
Physical Exam Narrative Patient signed out to me at shift change with instructions for observation and reevaluation awaiting clinical sobriety. Patient is markedly elevated: was seen here yesterday status post fall while intoxicated, sustained a neck injury , had a negative workup and was discharged. Patient then presented again tonight status post fall secondary to intoxication. Patient currently resting comfortably, arousable, clinically intoxicated Data Data Last Documented VS Vital Signs Date Time Temp Pulse Resp B/P (MAP) Pulse Ox O2 Delivery O2 Flow Rate FiO2 12/20/17 02:29 94 18 140/80 (100) 94 Room Air 12/19/17 11:52 97.5 Orders Orders Alcohol (Ethanol) (12/19/17 11:53) Basic Metabolic Panel (Bmp) (12/19/17 11:53) Acetaminophen (Tylenol) (12/19/17 12:00) Lorazepam Inj (Ativan Inj) (12/20/17 02:15) Chlordiazepoxide (Librium) (12/20/17 02:15) Labs Laboratory Tests Test 12/19/17 12:05 Blood Urea Nitrogen 9 MG/DL Creatinine 0.74 MG/DL Random Glucose 89 MG/DL Calcium Level 8.7 MG/DL Sodium Level 138 MEQ/L Potassium Level 4.3 MEQ/L Chloride Level 102 MEQ/L Carbon Dioxide Level 25.0 MEQ/L Anion Gap 11 MEQ/L Estimat Glomerular Filtration Rate 110 ML/MIN Ethyl Alcohol Level 384 MG/DL [facility] Medical Record Reviewed: Yes Supervised Visit with JAUN: Yes Differential Diagnosis Alcohol intoxication, altered mental status Narrative Course Patient was observed for clinical sobriety. Laboratory for patient's calculated alcohol level would reach legal sobriety, patient awakened is ambulatory with narrow-based gait advocating for himself noting resting and intention tremors area to a call withdrawal. Patient is given Ativan 2 mg IV and Librium 50 mg by mouth. Patient appeared to be resting comfortably however when patient attempts to ambulate or move has significant tremors. Patient states he does not feel steady and cannot ambulate secondary to same. Diagnosis Primary Impression: Alcohol intoxication Qualified Codes: F10.920 - Alcohol use, unspecified with intoxication, uncomplicated Additional Impressions: Traumatic disp spondylolisthesis of C2 vertebra with closed fracture Qualified Codes: S12.130G - Unspecified traumatic displaced spondylolisthesis of second cervical vertebra, subsequent encounter for fracture with delayed healing Alcohol withdrawal Qualified Codes: F10.230 - Alcohol dependence with withdrawal, uncomplicated Admitting Information Admitting Physician Requests: Observation Patient Instructions: General Instructions Additional Instruction: Decrease alcohol use. Follow-up with neurosurgery and stroke [facility]'s previously directed. Scripts No Active Prescriptions or Reported Meds Condition: Phil Chavez MD Dec 20, 2017 04:49
[2017-12-20] MEDS ORDERED: MAGNESIUM HYDROXIDE SUSP 30 ML CUP PO PRN (05:00)
[2017-12-20] MEDS ORDERED: SENNOSIDES 8.6 MG TAB PO PRN (05:00)
[2017-12-20] MEDS ORDERED: SODIUM CHLORIDE 0.9% FLUSH 10 ML FLUSH IV FLUSH PRN (05:00)
[2017-12-20] MEDS ORDERED: LORazepam 2 MG TAB PO PRN (05:00)
[2017-12-20] MEDS ORDERED: LORazepam 2 MG/ML VIAL IV PUSH PRN ×4 (05:00)
[2017-12-20] MEDS ORDERED: NALOXONE HCL 0.4 MG/ML AMP IV PUSH PRN (05:00)
[2017-12-20] MEDS ORDERED: FLUMAZENIL 0.5 MG/5 ML VIAL IV PUSH PRN (05:00)
[2017-12-20] MEDS ORDERED: BISACODYL 10 MG SUPP RECTAL PRN (05:00)
[2017-12-20] MEDS ORDERED: ONDANSETRON HCL 4 MG/2 ML VIAL IVP PRN (05:00)
[2017-12-20] MEDS: LORazepam 1 MG TAB PO PRN ×4 (06:32→20:42)
[2017-12-20] MEDS: ACETAMINOPHEN 325 MG TAB PO PRN ×2 (06:57→15:38)
[2017-12-20] MEDS: THIAMINE HCL 100 MG TAB PO SCH (08:11)
[2017-12-20] MEDS: FOLIC ACID 1 MG TAB PO SCH (08:11)
[2017-12-20] MEDS: SODIUM CHLORIDE 0.9% FLUSH 10 ML FLUSH IV FLUSH SCH ×2 (08:11→21:00)
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
[2017-12-20] MEDS ORDERED: MULTIVITAMIN TAB PO ONE (17:15)
[2017-12-20] MEDS ORDERED: hydrALAZINE HCL 10 MG TAB PO PRN (17:15)
[2017-12-20] MEDS ORDERED: ENALAPRILAT 1.25 MG/ML VIAL IV PUSH PRN (17:15)
--- NOTE | 2017-12-20 19:28 | HHI.PR ---
Subjective Remarks NOT SEEN Objective Vitals Vital Signs Date Time Temp Pulse Resp B/P (MAP) Pulse Ox O2 Delivery O2 Flow Rate FiO2 12/20/17 18:05 89 12/20/17 16:04 98.2 78 20 148/80 (102) 97 12/20/17 08:15 97.9 72 18 155/90 (111) 96 12/20/17 06:21 98.4 104 19 161/80 (107) 94 12/20/17 05:45 12/20/17 05:30 89 12/20/17 04:45 95 18 150/87 (108) 96 Room Air 12/20/17 02:29 94 18 140/80 (100) 94 Room Air I/O 12/19/17 12/19/17 12/19/17 12/20/17 12/20/17 12/20/17 07:00 15:00 23:00 07:00 15:00 23:00 Intake Total 240 ml Balance 240 ml Intake Oral 240 ml Result Diagram: 12/19/17 1205 Objective Remarks GENERAL: This is a well-nourished, well-developed male patient, in no apparent distress. Awake and alert. Tremulous. SKIN: No rashes, ecchymoses or lesions. Cool and dry. HEAD: Atraumatic. Normocephalic. No temporal or scalp tenderness. EYES: Pupils equal round and reactive. Extraocular motions intact. No scleral icterus. No injection or drainage. ENT: Nose without bleeding or purulent drainage. Throat without erythema, tonsillar hypertrophy or exudate. Uvula midline. Airway patent. NECK: Trachea midline. No lymphadenopathy. Supple, nontender, no meningeal signs. CARDIOVASCULAR: Regular rate and rhythm without murmurs, gallops, or rubs. RESPIRATORY: Clear to auscultation. Breath sounds equal bilaterally. No wheezes , rales, or rhonchi. GASTROINTESTINAL: Abdomen soft, non-tender, nondistended. No hepato-splenomegaly , or palpable masses. No guarding. MUSCULOSKELETAL: Extremities without clubbing, cyanosis, or edema. No joint tenderness, effusion, or edema noted. No calf tenderness. NEUROLOGICAL: Awake and alert. Cranial nerves II through XII grossly intact. Motor and sensory grossly within normal limits. Five out of 5 muscle strength in all muscle groups. Normal speech. Procedures none A/P Problem List: (1) ETOH abuse ICD Code: F10.10 - Alcohol abuse, uncomplicated Status: Acute (2) Alcohol withdrawal ICD Code: F10.239 - Alcohol dependence with withdrawal, unspecified Status: Acute Assessment and Plan 57-year-old male with past medical history significant for depression , anxiety, dyslipidemia, alcohol use disorder and cervical fracture status post halo fixation now wearing a cervical collar who was brought in to [facility] ED by EMS after he was found earlier in the day at a pizzeria intoxicated. Alcohol intoxication Hx of alcohol withdrawal seizure - Ethyl alcohol 384 on admission - Admit to [facility] protocol - Thiamine/folate/multivitamin daily - Monitor for signs of withdrawal/DTs - Counseled on alcohol cessation - Fall and seizure precautions Hypertensive - Secondary to alcohol withdrawal - IV Vasotec and by mouth hydralazine when necessary with parameters - Continue to monitor BP and will initiate scheduled antihypertensive treatment if indicated Hx of C2 fracture subluxation status post HALO fixation, now in cervical collar - CT of the head and neck obtained in the ED and Dr. Duran consulted who stated patient is stable and recommended follow-up as an outpatient Hx of pulmonary nodules by CT 06/23/17 with recommendation for 6 month follow- up noncontrast chest CT - will order CT chest for re-evaluation DVT prophylaxis - bilateral SCDs Problem Qualifiers (1) Alcohol withdrawal: Qualified Codes: F10.230 - Alcohol dependence with withdrawal, uncomplicated Christian Espinosa MD Dec 20, 2017 19:28
--- NOTE | 2017-12-20 19:35 | RADRPT ---
EXAM DATE/TIME: 12/20/2017 19:16 [place] COMPARISON: No previous studies available for comparison. INDICATIONS : Follow up lung nodule. RADIATION DOSE: 10.75 CTDIvol (mGy) MEDICAL HISTORY : Diabetes mellitus type 2. SURGICAL HISTORY : right testicle removed ENCOUNTER: Subsequent ACUITY: 4 - 6 months PAIN SCALE: 0/10 LOCATION: chest TECHNIQUE: Volumetric scanning of the chest was performed. Using automated exposure control and adjustment of t he mA and/or kV according to patient size, radiation dose was kept as low as reasonably achievable to obtain optimal diagnostic quality images. DICOM format image data is available electronically for r eview and comparison. Follow-up recommendations for detected pulmonary nodules are based at a minimum on nodule size and pa tient risk factors according to Fleischner Society Guidelines. FINDINGS: LUNGS: There is no consolidation or pneumothorax. Linear densities right lower lobe. A 5, 6 and 7 mm nodule in the right upper lobe. PLEURAE: There is no pleural thickening or pleural effusion. MEDIASTINUM: The heart and great vessels demonstrate no acute abnormality. There is no mediastinal or hilar lymph adenopathy. Minimal coronary artery calcifications. AXILLAE: Within normal limits. No lymphadenopathy. MUSCULOSKELETAL: Within normal limits for patient age. MISCELLANEOUS: The visualized upper abdominal organs demonstrate multiple calculi in the right kidney and right jimena l pelvis. CONCLUSION: 1. Several subcentimeter nodules, likely benign. Followup CT chest in 6 months recommended for stabil ity. 2. Minimal scarring right lower lobe. 3. Numerous calculi in the right kidney/ Renal pelvis. Familia Chen MD on December 20, 2017 at 19:29 Board Certified Radiologist. This report was verified electronically.
[2017-12-21 04:41] VITALS: BP 131/78; PULSE 76; RESP 18; TEMP 98.4; O2SAT 97
[2017-12-21] MEDS: LORazepam 1 MG TAB PO PRN ×2 (05:03→09:45)
[2017-12-21 06:03] LABS: BASOPHIL % 0.2 % (0.0-2.0); EOSINOPHIL # 0.1 TH/MM3 (0-0.4); EOSINOPHIL % 3.1 % (0.0-4.0); HEMATOCRIT 38.7 % (39.0-51.0); HEMOGLOBIN 13.4 GM/DL (13.0-17.0); LYMPH % 22.3 % (9.0-44.0); MEAN CELL VOLUME 100.2 FL (80.0-100.0); MEAN CORPUSCULAR HEMOGLOBIN 34.6 PG (27.0-34.0); MEAN CORPUSCULAR HGB CONC 34.6 % (32.0-36.0); MEAN PLATELET VOLUME 8.2 FL (7.0-11.0); MONO % 6.2 % (0.0-8.0); MONOCYTE # 0.3 TH/MM3 (0-0.9); NEUT % 68.2 % (16.0-70.0); PLATELET COUNT 110 TH/MM3 (150-450); RED BLOOD COUNT 3.86 MIL/MM3 (4.50-5.90); RED CELL DISTRIBUTION WIDTH 14.3 % (11.6-17.2); WHITE BLOOD COUNT 4.4 TH/MM3 (4.0-11.0)
[2017-12-21 06:22] LABS: BICARBONATE 22.8 MEQ/L (21.0-32.0); CALCIUM 9.5 MG/DL (8.5-10.1); CREATININE 0.83 MG/DL (0.60-1.30)
[2017-12-21 07:54] VITALS: BP 141/89; PULSE 99; RESP 18; TEMP 96; O2SAT 96
[2017-12-21 08:36] VITALS: PULSE 94
[2017-12-21] MEDS ORDERED: MULTIVITAMIN TAB PO SCH (09:00)
[2017-12-21] MEDS ORDERED: GABAPENTIN 100 MG CAP PO SCH (09:00)
[2017-12-21] MEDS: SODIUM CHLORIDE 0.9% FLUSH 10 ML FLUSH IV FLUSH SCH (09:15)
[2017-12-21] MEDS: FOLIC ACID 1 MG TAB PO SCH (09:15)
[2017-12-21] MEDS: THIAMINE HCL 100 MG TAB PO SCH (09:16)
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
[2017-12-21] MEDS ORDERED: THIA100 PO (11:11)
[2017-12-21] MEDS ORDERED: THERTAB15 PO (11:11)
[2017-12-21] MEDS ORDERED: CHLO25CA9 PO (11:11)
[2017-12-21] MEDS ORDERED: GABA100C4 PO (11:11)
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
== END 2017-12-21 11:53 | disposition home or self-care (01) ==
LOC: NEPC 11:46 → NEDA 12-20 04:59 → NEPFCDU 12-20 05:53
PROVIDERS: ADMIT Internal Medicine; ATTEND Internal Medicine
DX: F10.230 Alcohol dependence with withdrawal, uncomplicated (principal); Y90.8 Blood alcohol level of 240 mg/100 ml or more; M54.2 Cervicalgia; G89.29 Other chronic pain; Z59.0 Homelessness; M43.12 Spondylolisthesis, cervical region; E78.5 Hyperlipidemia, unspecified; F41.9 Anxiety disorder, unspecified; F32.9 Major depressive disorder, single episode, unspecified; R91.8 Other nonspecific abnormal finding of lung field; F17.210 Nicotine dependence, cigarettes, uncomplicated; I10 Essential (primary) hypertension; N20.0 Calculus of kidney; S12.13 Unspecified traumatic spondylolisthesis of second cervical vertebra
CPT/HCPCS: 71250; 80048; 80307; 85025; 97162; 99285; G0378; G8987; G8988; J2060

== ENCOUNTER 2018-01-04 12:15 | Emergency (ER) | payer OTHER ==
[~2018-01-04 12:15] MED LIST changes: -CHLO10CA5 PO; +CHLO25CA9 PO; +GABA100C4 PO; +THERTAB15 PO; +THIA100 PO
[2018-01-04 12:38] VITALS: BP 117/80; PULSE 82; RESP 16; TEMP 98.5
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
--- NOTE | 2018-01-04 15:24 | RADRPT ---
EXAM DATE/TIME: 01/04/2018 15:11 [facility] COMPARISON: CT CERVICAL SPINE W/O CONTRAST, December 18, 2017, 21:33. CT BRAIN W/O CONTRAST, December 18, 2017, 21 :33. INDICATIONS : Patient complains of headache. RADIATION DOSE: 56.35 CTDIvol (mGy) MEDICAL HISTORY : Cardiovascular disease. SURGICAL HISTORY : halo ENCOUNTER: Initial ACUITY: 1 day PAIN SCALE: 4/10 LOCATION: cranial TECHNIQUE: Multiple contiguous axial images were obtained of the head. Using automated exposure control and adj ustment of the mA and/or kV according to patient size, radiation dose was kept as low as reasonably a chievable to obtain optimal diagnostic quality images. DICOM format image data is available electro nically for review and comparison. FINDINGS: Noncontrast axial head CT demonstrates the ventricles to be normal in size and configuration with a n ormal sulcal pattern. No acute intracranial hemorrhage, acute cortical infarction, mass or midline sh ift is seen. Posterior fossa structures are unremarkable. Bone windows fracture at the C1-C2 level which has been previously evaluated. There is benign-appeari ng mucosal disease in the maxillary antra bilaterally. CONCLUSION: 1. No evidence of acute intracranial pathology. No masses are identified. Roberto Crawford MD on January 04, 2018 at 15:21 Board Certified Radiologist. This report was verified electronically.
--- NOTE | 2018-01-04 15:42 | RADRPT ---
EXAM DATE/TIME: 01/04/2018 15:10 [facility] COMPARISON: CT CERVICAL SPINE W/O CONTRAST, December 18, 2017, 21:33. INDICATIONS : Patient complains of neck pain, patient removed his halo. RADIATION DOSE: 27.89 CTDIvol (mGy) MEDICAL HISTORY : Cardiovascular disease. SURGICAL HISTORY : halo ENCOUNTER: Initial ACUITY: 1 day PAIN SCALE: 5/10 LOCATION: neck TECHNIQUE: Volumetric scanning of the cervical spine was performed. Multiplanar reconstructions in the sagittal, coronal and oblique axial planes were performed. Using automated exposure control and adjustment o f the mA and/or kV according to patient size, radiation dose was kept as low as reasonably achievable to obtain optimal diagnostic quality images. DICOM format image data is available electronically f or review and comparison. FINDINGS: The previously noted fractures involving C1 and C2 are stable in appearance compared to 12/18/17. Thes e fractures are not healed at this time. There is persistent diastases of the anterior ring of C1 as well as acute fractures of the posterior-lateral aspects of the C1 ring bilaterally. The acute displa chase fracture involving the body of C2 is also unchanged. The bilateral lateral fractures of C2 are st able and nondisplaced. The anterior fracture of C2 remains anteriorly displaced but unchanged compare d to the previous examination. No new fractures are noted. There is persistent grade I retrolisthesis of C5 in relation to C6 and C6 in relation to C7. Mild spinal stenoses and bilateral foraminal narro wing is noted at C5-6 and C6-7. Mild bilateral foraminal narrowing is noted at C4-5 and C7-T1 also. CONCLUSION: No significant change in the appearance of the C1 and C2 cervical fractures compared to the previous examination. No acute fracture is noted. Mild spinal stenosis and bilateral foraminal narrowing at C5-6 and C6-7 as well as bilateral foraminal narrowing at C4-5 and C7-T1 without spinal stenoses at these levels. Alfred Reyes MD on January 04, 2018 at 15:32 Board Certified Radiologist. This report was verified electronically.
== END 2018-01-04 18:55 | disposition home or self-care (01) ==
LOC: NEDAMB 12:15
DX: F10.129 Alcohol abuse with intoxication, unspecified (principal); F17.200 Nicotine dependence, unspecified, uncomplicated; S00.81XA Abrasion of other part of head, initial encounter; W01.0XXA Fall on same level from slipping, tripping and stumbling without subsequent striking against object, initial encounter; Y92.410 Unspecified street and highway as the place of occurrence of the external cause
CPT/HCPCS: 70450; 71045; 72125; 99284

== ENCOUNTER 2018-05-27 16:03 | Observation (INO) ==
[2018-05-29] MEDS ORDERED: Haloperidol Inj 5 MG/ML Ampul IV.PUSH PRN (14:41)
[2018-05-29] MEDS ORDERED: LORazepam 1 MG Tablet PO PRN (14:41)
[2018-05-29] MEDS ORDERED: LORazepam 1 MG Tablet ONE (23:24)
[2018-05-30] MEDS ORDERED: Haloperidol Inj 5 MG/ML Ampul IV.PUSH PRN (01:00)
[2018-05-30] MEDS ORDERED: Dextrose 50% in Water 50 ML Vial IV.PUSH PRN (01:00)
[2018-05-30] MEDS ORDERED: LORazepam 1 MG Tablet PO PRN (01:00)
[2018-05-30] MEDS ORDERED: Acetaminophen 325 MG Tablet PO PRN (01:00)
[2018-05-30] MEDS: Multivitamin Inj 10 ML, Folic Acid Inj 1 MG in Sodium Chlor 0.9% Inj 500 ML IV.SIG SCH (01:55)
[2018-05-30] MEDS ORDERED: Pharmacy Ordered Lab Info OTHER ONE (03:45)
[2018-05-30] MEDS ORDERED: Vancomycin Inj 1,250 MG in Sodium Chlor 0.9% Inj 250 ML IV.SIG SCH (04:00)
[2018-05-30 05:36] LABS: Eos # (Auto) 0.1 th/mm3 (0.0-0.4); Eos % (Auto) 4.1 % (0.0-4.0); Hematocrit 28.4 % (39.0-51.0); Hemoglobin 9.8 gm/dL (13.0-17.0); Lymph # (Auto) 0.6 th/mm3 (1.0-4.8); Lymph % (Auto) 21.7 % (9.0-44.0); Mean Corpuscular HGB Conc 34.5 % (32.0-36.0); Mean Corpuscular Hemoglobin 35.7 pg (27.0-34.0); Mean Corpuscular Volume 103.5 fL (80.0-100.0); Mean Platelet Volume 7.9 fL (7.0-11.0); Mono # (Auto) 0.2 th/mm3 (0.0-0.9); Mono % (Auto) 8.9 % (0.0-8.0); Neut # (Auto) 1.8 th/mm3 (1.8-7.7); Neut % (Auto) 64.3 % (16.0-70.0); Platelet Count 51 th/mm3 (150-450); Red Blood Count 2.74 mil/mm3 (4.50-5.90); Red Cell Distribution Width 13.5 % (11.6-17.2); White Blood Count 2.8 th/mm3 (4.0-11.0)
[2018-05-30] MEDS: LORazepam 1 MG Tablet PO SCH ×4 (05:55→18:00)
[2018-05-30 06:12] LABS: Anion Gap 12 meq/L (5-15); Blood Urea Nitrogen 9 mg/dL (7-18); Carbon Dioxide 24.5 meq/L (21.0-32.0); Chloride 106 meq/L (98-107); Glomerular Filtration Rate Greater Than 89 mL/min (>89); Glucose,Random 88 mg/dL (74-106); Magnesium 1.5 mg/dL (1.5-2.5); Phosphorus 3.4 mg/dL (2.5-4.9); Sodium 142 meq/L (136-145)
[2018-05-30 06:33] LABS: Potassium 2.7 meq/L (3.5-5.1)
[2018-05-30 08:35] LABS: Platelet Morphology Normal (Normal)
[2018-05-30] MEDS ORDERED: Magnesium Oxide 400 MG Tablet PO SCH (09:00)
[2018-05-30] MEDS: Potassium Chlor 20 mEq Premix 20 MEQ/100 ML PIGGYBACK IV.SIG SCH ×4 (09:44→14:57)
[2018-05-30] MEDS: Thiamine Inj 100 MG in Sodium Chlor 0.9% Inj 100 ML IV.SIG SCH (09:45)
[2018-05-30] MEDS ORDERED: Sod Chloride 0.9% Inj 1,000 ML IV.SIG ONE (10:00)
--- NOTE | 2018-05-30 17:12 | P.PN ---
Subjective Interval history: Follow-up toxic encephalopathy. Patient complaining of dizziness when he was out of bed systolic blood pressure was 60. He was immediately placed on Trendelenburg with improvement of blood pressure. Overnight he had several episodes of loose stools on lactulose denies nausea, vomiting and abdominal pain. Discussed with nursing to give bolus of 1 L and continue IV hydration Physical Exam Vital signs: Vital Signs 05/30/18 00:00 05/30/18 01:00 05/30/18 03:00 Temperature 98 F Pulse Rate 90 89 85 Respiratory Rate 20 Blood Pressure 129/71 Pulse Oximetry 98 05/30/18 04:00 05/30/18 05:00 05/30/18 05:56 Temperature 98.1 F Pulse Rate 84 88 89 Respiratory Rate 20 Blood Pressure 126/79 Pulse Oximetry 97 05/30/18 07:00 05/30/18 08:00 05/30/18 10:06 Temperature 98.4 F Pulse Rate 82 70 96 H Respiratory Rate 14 Blood Pressure 96/64 L Pulse Oximetry 97 05/30/18 11:00 05/30/18 12:00 05/30/18 13:00 Temperature 98.6 F Pulse Rate 83 82 85 Respiratory Rate 14 Blood Pressure 105/68 Pulse Oximetry 99 05/30/18 14:00 05/30/18 15:00 05/30/18 16:00 Temperature 98.4 F Pulse Rate 112 H 92 H 93 H Respiratory Rate 14 Blood Pressure 106/70 Pulse Oximetry 97 Intake & Output 05/29/18 05/30/18 05/30/18 18:59 06:59 18:59 Intake Total 700 / 700 1140 / 1140 Output Total 800 / 800 Balance 700 / 700 340 / 340 Weight 69.4 kg Intake: IV 300 / 300 KCl 20 mEq Premix Inj 20 meq In 300 / 300 100 ml @ 50 mls/hr IV.SIG Q2H MARIANA Rx#:[id number] Oral 700 / 700 840 / 840 Output: Urine 800 / 800 Other: # Voids 6 1 # Incontinent Voids 6 # Bowel Movements 4 Narrative: GENERAL: Well-developed and well-nourished in no distress SKIN: Warm and dry. CARDIOVASCULAR: Regular rate and rhythm. S1-S2 no S3 or S4 RESPIRATORY: No accessory muscle use. Clear to auscultation. Breath sounds equal bilaterally. GASTROINTESTINAL: Abdomen soft, non-tender, nondistended. MUSCULOSKELETAL: Extremities without clubbing, cyanosis, or edema. No obvious deformities. NEUROLOGICAL: Awake and following commands. Oriented to person and place not able to name the months backwards. No obvious cranial nerve deficits. Generalized weakness. Normal speech. Tremors noted - Urinary Catheter Management Condom Cath placed during this visit: no Results - Labs CBC & Chem 7: 05/30/18 04:59 05/30/18 04:59 Labs: Laboratory Results - last 24 hr 05/27/18 05/27/18 05/27/18 13:10 13:18 13:18 WBC 4.1 RBC 3.08 L Hgb 10.8 L D Hct 31.6 L MCV 102.8 H MCH 35.2 H MCHC 34.2 RDW 13.9 Plt Count 65 L MPV 7.9 Prelim Diff (Auto) Neut % (Auto) 82.9 H Lymph % (Auto) 8.9 L Piatt % (Auto) 7.9 Eos % (Auto) 0.0 Baso % (Auto) 0.3 Neut # (Auto) 3.4 Lymph # (Auto) 0.4 L Piatt # (Auto) 0.3 Eos # (Auto) 0.0 Baso # (Auto) 0.0 CBC Comment AUTO DIFF WBC Differential Diff Scan Differential Comment AUTO DIFF CONFIRMED Platelet Estimate LOW L Platelet Morphology Plt Morphology Comment NORMAL PT INR Sodium 137 Potassium 4.2 Chloride 102 D Carbon Dioxide 19.3 L Anion Gap 16 H BUN 21 H Creatinine 1.31 H Estimated GFR 57 L Random Glucose 134 H Hemoglobin A1c Lactic Acid Calcium 7.5 L D Phosphorus Magnesium Total Bilirubin 2.7 H AST 766 H ALT 167 H Alkaline Phosphatase 70 Ammonia Total Protein 6.8 D Albumin 3.4 D Triglycerides Cholesterol LDL Cholesterol HDL Cholesterol Cholesterol/HDL Ratio Amylase Lipase Free T4 TSH 3rd Generation Urine Color Urine Turbidity Urine pH Ur Specific [place] Urine Protein Urine Glucose (UA) Urine Ketones Urine Occult Blood Urine Nitrite Urine Bilirubin Urine Urobilinogen Ur Leukocyte Esterase Urine RBC Urine WBC Hyaline Casts Micro UA Comment Vancomycin Trough Urine Opiates Screen NEG Ur Barbiturates Screen NEG Ur Amphetamines Screen NEG U Benzodiazepines Scrn NEG Urine Cocaine Screen NEG U Cannabinoids Screen NEG Ethyl Alcohol LESS THAN 3 05/27/18 05/27/18 05/28/18 18:37 23:18 09:05 WBC RBC Hgb Hct MCV MCH MCHC RDW Plt Count MPV Prelim Diff (Auto) Neut % (Auto) Lymph % (Auto) Piatt % (Auto) Eos % (Auto) Baso % (Auto) Neut # (Auto) Lymph # (Auto) Piatt # (Auto) Eos # (Auto) Baso # (Auto) CBC Comment WBC Differential Diff Scan Differential Comment Platelet Estimate Platelet Morphology Plt Morphology Comment PT INR Sodium 137 Potassium 2.7 L* D Chloride 100 Carbon Dioxide 20.9 L Anion Gap 16 H BUN 10 D Creatinine 0.76 Estimated GFR 106 Random Glucose 86 Hemoglobin A1c Lactic Acid 1.9 Calcium 7.7 L Phosphorus Magnesium Total Bilirubin 2.1 H AST 566 H ALT 143 H Alkaline Phosphatase 71 Ammonia Total Protein 6.4 Albumin 3.1 L Triglycerides Cholesterol LDL Cholesterol HDL Cholesterol Cholesterol/HDL Ratio Amylase Lipase Free T4 TSH 3rd Generation Urine Color YELLOW Urine Turbidity CLEAR Urine pH 7.0 Ur Specific [place] 1.009 Urine Protein NEG Urine Glucose (UA) NEG Urine Ketones 20 Urine Occult Blood SMALL H Urine Nitrite NEG Urine Bilirubin NEG Urine Urobilinogen 4.0 OR GREATER H Ur Leukocyte Esterase NEG Urine RBC 1 Urine WBC 1 Hyaline Casts 1 Micro UA Comment CATH-CULT NOT IND Vancomycin Trough Urine Opiates Screen Ur Barbiturates Screen Ur Amphetamines Screen U Benzodiazepines Scrn Urine Cocaine Screen U Cannabinoids Screen Ethyl Alcohol 05/28/18 05/29/18 05/29/18 09:05 06:02 06:02 WBC RBC Hgb Hct MCV MCH MCHC RDW Plt Count MPV Prelim Diff (Auto) Neut % (Auto) Lymph % (Auto) Piatt % (Auto) Eos % (Auto) Baso % (Auto) Neut # (Auto) Lymph # (Auto) Piatt # (Auto) Eos # (Auto) Baso # (Auto) CBC Comment WBC Differential Diff Scan Differential Comment Platelet Estimate Platelet Morphology Plt Morphology Comment PT INR Sodium 140 Potassium 2.7 L* Chloride 103 Carbon Dioxide 25.2 Anion Gap 12 BUN 8 Creatinine 0.59 L Estimated GFR 143 Random Glucose 81 Hemoglobin A1c 4.8 Lactic Acid Calcium 7.5 L Phosphorus 1.8 L Magnesium 1.5 Total Bilirubin 1.6 H AST 397 H ALT 122 H Alkaline Phosphatase 68 Ammonia 36 H Total Protein 5.6 L D Albumin 2.7 L Triglycerides 111 Cholesterol 171 LDL Cholesterol 67 HDL Cholesterol 82.0 H Cholesterol/HDL Ratio 2.08 Amylase 27 Lipase 134 Free T4 1.00 TSH 3rd Generation 3.750 H Urine Color Urine Turbidity Urine pH Ur Specific [place] Urine Protein Urine Glucose (UA) Urine Ketones Urine Occult Blood Urine Nitrite Urine Bilirubin Urine Urobilinogen Ur Leukocyte Esterase Urine RBC Urine WBC Hyaline Casts Micro UA Comment Vancomycin Trough Urine Opiates Screen Ur Barbiturates Screen Ur Amphetamines Screen U Benzodiazepines Scrn Urine Cocaine Screen U Cannabinoids Screen Ethyl Alcohol 05/29/18 05/29/18 05/29/18 06:02 06:02 19:31 WBC 3.0 L RBC 2.67 L Hgb 9.6 L Hct 27.5 L MCV 103.2 H MCH 36.1 H MCHC 35.0 RDW 13.0 Plt Count 37 L D MPV 8.8 Prelim Diff (Auto) Neut % (Auto) 67.9 Lymph % (Auto) 21.6 Piatt % (Auto) 8.8 H Eos % (Auto) 1.0 Baso % (Auto) 0.7 Neut # (Auto) 2.0 Lymph # (Auto) 0.6 L Piatt # (Auto) 0.3 Eos # (Auto) 0.0 Baso # (Auto) 0.0 CBC Comment AUTO DIFF WBC Differential Diff Scan Differential Comment AUTO DIFF CONFIRMED Platelet Estimate LOW L Platelet Morphology Plt Morphology Comment NORMAL PT 11.6 INR 1.1 Sodium 141 Potassium 3.1 L Chloride 107 Carbon Dioxide 23.3 Anion Gap 11 BUN 10 Creatinine 0.71 Estimated GFR 115 Random Glucose 105 Hemoglobin A1c Lactic Acid Calcium 7.5 L Phosphorus Magnesium 1.6 Total Bilirubin AST ALT Alkaline Phosphatase Ammonia Total Protein Albumin Triglycerides Cholesterol LDL Cholesterol HDL Cholesterol Cholesterol/HDL Ratio Amylase Lipase Free T4 TSH 3rd Generation Urine Color Urine Turbidity Urine pH Ur Specific [place] Urine Protein Urine Glucose (UA) Urine Ketones Urine Occult Blood Urine Nitrite Urine Bilirubin Urine Urobilinogen Ur Leukocyte Esterase Urine RBC Urine WBC Hyaline Casts Micro UA Comment Vancomycin Trough Urine Opiates Screen Ur Barbiturates Screen Ur Amphetamines Screen U Benzodiazepines Scrn Urine Cocaine Screen U Cannabinoids Screen Ethyl Alcohol 05/30/18 05/30/18 05/30/18 04:59 04:59 12:00 WBC 2.8 L RBC 2.74 L Hgb 9.8 L Hct 28.4 L MCV 103.5 H MCH 35.7 H MCHC 34.5 RDW 13.5 Plt Count 51 L MPV 7.9 Prelim Diff (Auto) Slide review pending Neut % (Auto) 64.3 Lymph % (Auto) 21.7 Piatt % (Auto) 8.9 H Eos % (Auto) 4.1 H Baso % (Auto) 1.0 Neut # (Auto) 1.8 Lymph # (Auto) 0.6 L Piatt # (Auto) 0.2 Eos # (Auto) 0.1 Baso # (Auto) 0.0 CBC Comment WBC Differential . Diff Scan Auto diff confirmed Differential Comment . Platelet Estimate Low L Platelet Morphology Normal Plt Morphology Comment PT INR Sodium 142 Potassium 2.7 L* Chloride 106 Carbon Dioxide 24.5 Anion Gap 12 BUN 9 Creatinine 0.59 L Estimated GFR Greater than 89 Random Glucose 88 Hemoglobin A1c Lactic Acid Calcium 8.0 L Phosphorus 3.4 Magnesium 1.5 Total Bilirubin AST ALT Alkaline Phosphatase Ammonia Total Protein Albumin Triglycerides Cholesterol LDL Cholesterol HDL Cholesterol Cholesterol/HDL Ratio Amylase Lipase Free T4 TSH 3rd Generation Urine Color Urine Turbidity Urine pH Ur Specific [place] Urine Protein Urine Glucose (UA) Urine Ketones Urine Occult Blood Urine Nitrite Urine Bilirubin Urine Urobilinogen Ur Leukocyte Esterase Urine RBC Urine WBC Hyaline Casts Micro UA Comment Vancomycin Trough 3.2 L Urine Opiates Screen Ur Barbiturates Screen Ur Amphetamines Screen U Benzodiazepines Scrn Urine Cocaine Screen U Cannabinoids Screen Ethyl Alcohol Assessment and Plan - Plan 57-year-old white male being admitted for alcohol intoxication Tachycardia -EKG ordered, appears sinus tach on telemetry -Likely secondary to alcohol withdrawal, treat underlying disorder Toxic encephalopathy/delirium. Improving -We will start scheduled Ativan with an eventual taper -CIWA protocol otherwise -Avoiding Librium at this time given transaminitis We will give alcohol more likely beer Needing Ativan [id number] and as needed Haldol Transaminitis -Most likely secondary to alcohol, trend, IV fluids Severe hypokalemia Hypophosphatemia -Aggressive replacement with IV and po potassium and repeat labs in the morning. Monitor on telemetry Hypotension secondary to dehydration from diarrhea. Fluid bolus and continue IV hydration discontinue lactulose SCDs. Avoid chemical prophylaxis secondary to thrombocytopenia
[2018-05-31] MEDS: LORazepam 1 MG Tablet PO SCH ×4 (00:36→18:21)
[2018-05-31 06:48] LABS: Baso % (Auto) 1.2 % (0.0-2.0); Eos # (Auto) 0.2 th/mm3 (0.0-0.4); Eos % (Auto) 5.1 % (0.0-4.0); Hemoglobin 9.9 gm/dL (13.0-17.0); Lymph # (Auto) 0.6 th/mm3 (1.0-4.8); Lymph % (Auto) 20.2 % (9.0-44.0); Mean Corpuscular HGB Conc 34.3 % (32.0-36.0); Mean Corpuscular Hemoglobin 35.6 pg (27.0-34.0); Mean Corpuscular Volume 104.1 fL (80.0-100.0); Mean Platelet Volume 8.6 fL (7.0-11.0); Mono # (Auto) 0.4 th/mm3 (0.0-0.9); Mono % (Auto) 12.9 % (0.0-8.0); Neut # (Auto) 1.9 th/mm3 (1.8-7.7); Neut % (Auto) 60.6 % (16.0-70.0); Platelet Count 80 th/mm3 (150-450); Red Blood Count 2.78 mil/mm3 (4.50-5.90); Red Cell Distribution Width 13.4 % (11.6-17.2); White Blood Count 3.1 th/mm3 (4.0-11.0)
[2018-05-31] MEDS: Thiamine Inj 100 MG in Sodium Chlor 0.9% Inj 100 ML IV.SIG SCH (08:32)
[2018-05-31 08:49] LABS: Platelet Morphology Normal (Normal)
[2018-05-31 08:58] LABS: Anion Gap 11 meq/L (5-15); Blood Urea Nitrogen 10 mg/dL (7-18); Calcium 8.9 mg/dL (8.5-10.1); Carbon Dioxide 23.8 meq/L (21.0-32.0); Chloride 106 meq/L (98-107); Glomerular Filtration Rate Greater Than 89 mL/min (>89); Glucose,Random 114 mg/dL (74-106); Magnesium 1.5 mg/dL (1.5-2.5); Potassium 3.3 meq/L (3.5-5.1); Sodium 141 meq/L (136-145)
--- NOTE | 2018-05-31 12:14 | P.PNIM ---
Subjective Interval history: Patient is still having delirium tremens. Librium 10 mg p.o. 3 times daily added as a treatment today. No other complaints from the patient. Physical Exam Vital signs: Vital Signs 05/30/18 13:00 05/30/18 14:00 05/30/18 15:00 Temperature Pulse Rate 85 112 H 92 H Respiratory Rate Blood Pressure Pulse Oximetry 05/30/18 16:00 05/30/18 18:00 05/30/18 19:04 Temperature 98.4 F 98.4 F Pulse Rate 93 H 96 H 91 H Respiratory Rate 14 Blood Pressure 106/70 127/77 Pulse Oximetry 97 96 05/30/18 20:00 05/31/18 00:00 05/31/18 04:00 Temperature 98.1 F 98.1 F 98.8 F Pulse Rate 101 H 100 H 98 H Respiratory Rate 18 18 17 Blood Pressure 128/91 H 135/75 176/101 H Pulse Oximetry 97 97 98 05/31/18 08:00 Temperature 98.1 F Pulse Rate 91 H Respiratory Rate 18 Blood Pressure 141/84 H Pulse Oximetry 96 Intake & Output 05/30/18 05/31/18 05/31/18 18:59 06:59 18:59 Intake Total 1241 / 1241 666 / 666 Output Total 800 / 800 400 / 400 Balance 441 / 441 266 / 266 Weight 74.3 kg Intake: IV 401 / 401 KCl 20 mEq Premix Inj 20 meq In 300 / 300 100 ml @ 50 mls/hr IV.SIG Q2H MARIANA Rx#:[id number] Thiamine Inj 100 MG In NS Inj 101 / 101 100 ML @ 100 mls/hr IV.SIG DAILY MARIANA Rx#:[id number] Oral 840 / 840 666 / 666 Output: Urine 800 / 800 400 / 400 Other: # Voids 1 # Bowel Movements 0 Weight On Admission 75.9 kg - Routine HEENT Exam Comments: GENERAL: NAD, A&Ox3, diffuse tremors HEAD: Normocephalic. NECK: Supple, trachea midline. No lymphadenopathy. EYES: No scleral icterus. No injection or drainage. CARDIOVASCULAR: Regular rate and rhythm without murmurs, gallops, or rubs. RESPIRATORY: Breath sounds equal bilaterally. No accessory muscle use. GASTROINTESTINAL: Abdomen soft, non-tender, nondistended. MUSCULOSKELETAL: No cyanosis, or edema. SKIN: Warm and dry. NEURO: No focal neurological deficits. - Urinary Catheter Management Condom Cath placed during this visit: no Results - Labs CBC & Chem 7: 05/31/18 05:41 05/31/18 06:00 Laboratory Results - last 24 hr 05/30/18 05/31/18 05/31/18 12:00 05:41 06:00 WBC 3.1 L RBC 2.78 L Hgb 9.9 L Hct 29.0 L MCV 104.1 H MCH 35.6 H MCHC 34.3 RDW 13.4 Plt Count 80 L D MPV 8.6 Prelim Diff (Auto) Slide review pending Neut % (Auto) 60.6 Lymph % (Auto) 20.2 [place] % (Auto) 12.9 H Eos % (Auto) 5.1 H Baso % (Auto) 1.2 Neut # (Auto) 1.9 Lymph # (Auto) 0.6 L [place] # (Auto) 0.4 Eos # (Auto) 0.2 Baso # (Auto) 0.0 WBC Differential . Diff Scan Auto diff confirmed Differential Comment . Platelet Estimate Low L Platelet Morphology Normal Sodium 141 Potassium 3.3 L Chloride 106 Carbon Dioxide 23.8 Anion Gap 11 BUN 10 Creatinine 0.66 Estimated GFR Greater than 89 Random Glucose 114 H Calcium 8.9 D Magnesium 1.5 Vancomycin Trough 3.2 L Assessment and Plan - Plan 57-year-old white male being admitted for alcohol intoxication Alcohol withdrawal Delirium tremens Not yet resolved Continue CIWA protocol Librium added at 10mg TID Wean as tolerated once DTs stabilized Tachycardia Secondary to withdrawal Continue to follow on telemetry Toxic encephalopathy Resolved Transaminitis Improving Continue to monitor Hypokalemia Hypophosphatemia Improved Continue to monitor and replace with supplements as needed Hypotension Resolved DVT prophylaxis SCDs
[2018-05-31] MEDS: Multivitamin Inj 10 ML, Folic Acid Inj 1 MG in Sodium Chlor 0.9% Inj 500 ML IV.SIG SCH (21:06)
[2018-06-01] MEDS: LORazepam 1 MG Tablet PO SCH ×3 (00:53→13:34)
[2018-06-01] MEDS: Multivitamin Inj 10 ML, Folic Acid Inj 1 MG in Sodium Chlor 0.9% Inj 500 ML IV.SIG SCH ×2 (00:56→05:37)
[2018-06-01] MEDS: Thiamine Inj 100 MG in Sodium Chlor 0.9% Inj 100 ML IV.SIG SCH (08:16)
[2018-06-01 10:02] LABS: Albumin 2.9 g/dL (3.4-5.0); Anion Gap 9 meq/L (5-15); Aspartate Aminotransferase 128 U/L (15-37); Blood Urea Nitrogen 8 mg/dL (7-18); Carbon Dioxide 26.9 meq/L (21.0-32.0); Chloride 104 meq/L (98-107); Glomerular Filtration Rate Greater Than 89 mL/min (>89); Glucose,Random 92 mg/dL (74-106); Potassium 3.4 meq/L (3.5-5.1); Sodium 140 meq/L (136-145)
[2018-06-01 10:03] LABS: Baso % (Auto) 1.5 % (0.0-2.0); Eos # (Auto) 0.2 th/mm3 (0.0-0.4); Eos % (Auto) 4.8 % (0.0-4.0); Hematocrit 30.4 % (39.0-51.0); Hemoglobin 10.6 gm/dL (13.0-17.0); Lymph # (Auto) 0.7 th/mm3 (1.0-4.8); Lymph % (Auto) 21.2 % (9.0-44.0); Mean Corpuscular HGB Conc 34.8 % (32.0-36.0); Mean Corpuscular Hemoglobin 36.6 pg (27.0-34.0); Mean Corpuscular Volume 105.1 fL (80.0-100.0); Mean Platelet Volume 8.5 fL (7.0-11.0); Mono # (Auto) 0.8 th/mm3 (0.0-0.9); Mono % (Auto) 22.7 % (0.0-8.0); Neut # (Auto) 1.7 th/mm3 (1.8-7.7); Neut % (Auto) 49.8 % (16.0-70.0); Platelet Count 111 th/mm3 (150-450); Red Blood Count 2.89 mil/mm3 (4.50-5.90); Red Cell Distribution Width 13.4 % (11.6-17.2); White Blood Count 3.4 th/mm3 (4.0-11.0)
[2018-06-01 10:04] LABS: Alanine Aminotransferase 108 U/L (12-78)
[2018-06-01 10:06] LABS: Alkaline Phosphatase 76 U/L (45-117); Total Protein 6.2 g/dL (6.4-8.2)
--- NOTE | 2018-06-01 14:00 | P.PNIM ---
Physical Exam Vital signs: Vital Signs 05/31/18 16:00 05/31/18 20:00 05/31/18 23:28 Temperature 98.3 F 97.8 F Pulse Rate 99 H 90 Respiratory Rate 18 16 16 Blood Pressure 139/82 130/89 Pulse Oximetry 97 96 06/01/18 00:00 06/01/18 01:09 06/01/18 04:00 Temperature 98.5 F 97.8 F Pulse Rate 96 H 99 H Respiratory Rate 17 16 17 Blood Pressure 141/91 H 141/86 H Pulse Oximetry 100 99 06/01/18 04:10 06/01/18 07:26 06/01/18 08:00 Temperature 98.3 F Pulse Rate 93 H 86 Respiratory Rate 18 20 Blood Pressure 137/91 H Pulse Oximetry 98 06/01/18 12:00 Temperature 98.2 F Pulse Rate 88 Respiratory Rate 18 Blood Pressure 144/89 H Pulse Oximetry 97 Intake & Output 05/31/18 06/01/18 06/01/18 18:59 06:59 18:59 Intake Total 841 / 841 663 / 663 101 / 101 Output Total 1999 1000 / 1000 Balance -1159 / -1159 -337 / -337 101 / 101 Weight 70.4 kg Intake: IV 101 / 101 101 / 101 Thiamine Inj 100 MG In NS Inj 101 / 101 101 / 101 100 ML @ 100 mls/hr IV.SIG DAILY MARIANA Rx#:[id number] Oral 740 / 740 663 / 663 Output: Urine 1999 1000 / 1000 Other: Date of Last Bowel Movement 05/31/18 # Bowel Movements 2 Narrative: GENERAL: NAD, A&Ox3, diffuse tremors HEAD: Normocephalic. NECK: Supple, trachea midline. No lymphadenopathy. EYES: No scleral icterus. No injection or drainage. CARDIOVASCULAR: Regular rate and rhythm without murmurs, gallops, or rubs. RESPIRATORY: Breath sounds equal bilaterally. No accessory muscle use. GASTROINTESTINAL: Abdomen soft, non-tender, nondistended. MUSCULOSKELETAL: No cyanosis, or edema. SKIN: Warm and dry. NEURO: No focal neurological deficits. - Urinary Catheter Management Condom Cath placed during this visit: no Results - Labs CBC & Chem 7: 06/01/18 09:03 06/01/18 09:03 Laboratory Results - last 24 hr 06/01/18 06/01/18 09:03 09:03 WBC 3.4 L RBC 2.89 L Hgb 10.6 L Hct 30.4 L MCV 105.1 H MCH 36.6 H MCHC 34.8 RDW 13.4 Plt Count 111 L D MPV 8.5 Neut % (Auto) 49.8 Lymph % (Auto) 21.2 [place] % (Auto) 22.7 H Eos % (Auto) 4.8 H Baso % (Auto) 1.5 Neut # (Auto) 1.7 L Lymph # (Auto) 0.7 L [place] # (Auto) 0.8 Eos # (Auto) 0.2 Baso # (Auto) 0.0 WBC Differential . Differential Comment Auto diff final Sodium 140 Potassium 3.4 L Chloride 104 Carbon Dioxide 26.9 Anion Gap 9 BUN 8 Creatinine 0.67 Estimated GFR Greater than 89 Random Glucose 92 Calcium 9.0 Total Bilirubin 1.2 H AST 128 H ALT 108 H Alkaline Phosphatase 76 Total Protein 6.2 L Albumin 2.9 L Assessment and Plan - Plan 57-year-old white male being admitted for alcohol intoxication Alcohol withdrawal Delirium tremens Not yet resolved Continue CIWA protocol Librium added at 10mg TID Wean as tolerated once DTs stabilized Tachycardia Secondary to withdrawal Continue to follow on telemetry Toxic encephalopathy Resolved Transaminitis Improving Continue to monitor Hypokalemia Hypophosphatemia Improved Continue to monitor and replace with supplements as needed Hypotension Resolved DVT prophylaxis SCDs
--- NOTE | 2018-06-01 14:57 | P.DN ---
Discharge Sum: Prov - Provider Primary care physician: No Primary Care Physician Discharge Sum: Summary - Date and Time Date of admission: 05/27/18 16:04 - Additional Data Attending physician: Wil Gómez MD
--- NOTE | 2018-07-27 14:08 | P.DS ---
Date of admission: 05/27/18 16:04 Primary care physician: No Primary Care Physician Brief History from admission: 57-year-old white male being admitted for alcohol withdrawal. Per my discussion with emergency room physician, patient was seen by EMS crawling along the streets. Brought into the hospital, resuscitated with IV fluids but had persistent tachycardia into the 150s. CIWA score per nursing appears to be in the tens despite Ativan IV. Patient is a poor historian given his overall medical status. Says he lives in the [place] Says he lives in a tent. Says he has not drunk alcohol in about 2 days, says he wants to stop drinking. DS: Diagnosis - Discharge Diagnosis (1) Alcohol withdrawal Status: Acute DS: Medications - Discharge Medications Prescriptions: chlordiazepoxide HCl 5 mg PO Q8H PRN #15 cap PRN Reason: Withdrawal Symptoms DS: Summary Hospital Course: 57-year-old white male being admitted for alcohol intoxication and alcohol withdrawal. Patient was treated with supportive management using CIWA protocol. Patient was weaned and remained stable. LFTS improved. Once patient' s acute withdrawal phase resolved, patient was discharged on low dose librium. - Time Spent with Patient Total time spent providing and/or coordinating discharge services: Greater than 30 minutes Exam Narrative: S> no active signs of withdrawal, patient would like to go home, no sob or chest pain O>not in distress no asterixis RRR CTAB AAOx3, no new focal deficits Results Procedures completed during hospitalization: none Discharge Plan - Discharge Disposition Patient Disposition: 01 Discharge Home - Discharge Condition Condition: Good - Discharge Order Discharge Orders: Discharge Order (Routine); Ordered 06/01/18 Ordered By: Wil Gómez - Discharge Details Anticipated Discharge Date: 06/01/18 - Physicians Team Primary Care Provider: Primary Care Venecia Abdul Attending Provider: Jan Hunt Other Providers: Kranthi Chávez MD - Rxs /Orders / Referrals /Forms Prescriptions: New chlordiazepoxide HCl 10 mg Capsule 5 mg PO Q8H PRN (Reason: Withdrawal Symptoms) Qty: 15 RF: 0 No Action No Known Home Medications Referrals: Primary Care Venecia Abdul [Primary Care Provider] - See Instructions - Discharge Instructions Patient Printed Instructions: Chlordiazepoxide (By mouth), Alcohol Withdrawal ( DC)
== END 2018-06-01 17:00 | disposition home or self-care (01) ==
LOC: N04 16:03 → HCIS 16:03 → N04 05-30 17:09
PROVIDERS: ADMIT Family Medicine; ATTEND Family Medicine

== ENCOUNTER 2019-01-14 07:00 | Inpatient (IN) ==
[2019-01-14] MEDS ORDERED: Sod Chloride 0.9% Inj 1,000 ML IV.SIG ONE (07:31)
--- NOTE | 2019-01-14 07:43 | ED ---
HPI General Chief Complaint: Seizure Stated Complaint: poss withdrawl Time Seen by Provider: 01/14/19 07:30 Source: EMS Mode of arrival: EMS Limitations: altered mental status History of Present Illness HPI Narrative: Patient is a 58-year-old male with history of seizures, presents to the emergency room by EV[facility] as he woke up outside of a gym complaining with tremors. Patient does have history of alcoholism, reported that he had only 2 beers yesterday. Patient has a seizure history, [facility]AC report that he is noncompliant with his medications. Patient is currently post ictal as he had a seizure episode while in the emergency room. Patient is unable to provide HPI at this time. Related Data Home Medications Medication Instructions Recorded Confirmed Unable to Obtain Home Meds 10/08/18 01/14/19 Allergies Allergy/AdvReac Type Severity Reaction Status Date / Time Fish Containing Products Allergy Severe Anaphylaxis Verified 05/30/18 21:03 penicillin G Allergy Unknown Hives Verified 05/30/18 21:03 Review of Systems ROS Unobtainable ROS Unobtainable: unobtainable due to mental condition and unobtainable due to mental status PMFSH Medical History Medical History Patient denies medical problems (Acute) Seizure (Acute) Cervical spine fracture (Resolved) Surgical History Surgical History History of removal of testicle (Acute) Social History Social History Substance History: Unable to Obtain Second Hand Smoke Exposure: No Smoking Status: Unknown if ever smoked Tobacco Type: Cigarettes How Often Do You Have a Drink Containing Alcohol: Unable to Obtain Recent Travel in [facility] within the Last 8 Weeks: No Recent Out of Country Travel within the Last 8 Weeks: No Immunization History Tetanus Immunization: Unsure Exam Narrative Exam Narrative: GENERAL: Moderate distress SKIN: Focused skin assessment warm/dry. HEAD: Atraumatic. Normocephalic. EYES: Pupils equal and round. No scleral icterus. No injection or drainage. ENT: No nasal bleeding or discharge. Mucous membranes pink and moist. NECK: Trachea midline. No JVD. CARDIOVASCULAR: Tachycardic No murmur appreciated. RESPIRATORY: No accessory muscle use. Clear to auscultation. Breath sounds equal bilaterally. GASTROINTESTINAL: Abdomen soft, non-tender, nondistended. Hepatic and splenic margins not palpable. MUSCULOSKELETAL: No obvious deformities. No clubbing. No cyanosis. No edema. NEUROLOGICAL: Patient is currently postictal Course Reevaluation(s) Reevaluation #1: Patient now awake, alert and oriented x3, patient reports that he has history of alcohol withdrawal seizures, patient has run out of money, he was only he did not have any drinks today. Patient denies any suicidal or homicidal ideations. Denies use of drugs. Discussed with patient plan to observe him for further seizure episodes. Time: 08:15 Reevaluation #2: Patient is now shaking, he is going through withdrawals, will re-dose with Ativan. Patient will require admission the hospital for impending DTs from alcohol withdrawal. Time: 09:45 Initial Documented Vital Signs Temperature 98.0 F 01/14/19 07:18 Pulse Rate 135 H 01/14/19 07:18 Respiratory Rate 24 01/14/19 07:18 Blood Pressure 154/78 H 01/14/19 07:18 Pulse Oximetry 99 01/14/19 07:18 Last Documented Vital Signs Temperature 98.0 F 01/14/19 07:18 Pulse Rate 94 H 01/14/19 09:30 Respiratory Rate 20 01/14/19 09:30 Blood Pressure 141/81 H 01/14/19 09:00 Pulse Oximetry 99 01/14/19 09:30 Medical Decision Making MDM Narrative Medical decision making narrative: During the course of the patients emergency department visit, the patients history, examination, and differential diagnosis were reviewed with the patient. The patient was placed on a secured entrance monitor with oximetry and frequent blood pressure monitoring. The patient had an IV access obtained and blood work sent for analysis. The patient was initially provided 2mg of IV ativan, oxygen was placed. Patient is currently post ictal. Past records reviewed, patient with most like alcohol withdrawal seizures The patients laboratory studies were reviewed Patient has received 2 doses of IV Ativan, patient is still shaking with a heart rate in the 120s. He has been in the emergency room for 3 hours. Plan to admit for impending delirium tremors. Case reviewed with residents who accepts patient under Dr. Gilbert Medical Screen Exam Complete: Yes Emergency Medical Condition: Yes Differential Diagnosis Differential Diagnosis: Alcohol withdrawal seizures, electrolyte abnormality Medical Records Medical records reviewed: Yes I reviewed the patient's medical records. Lab Data Lab results reviewed: Yes I reviewed the patient's lab results. Result diagrams: 01/14/19 07:30 01/14/19 07:30 Lab Results 01/14/19 01/14/19 Range/Units 07:30 07:30 WBC 5.3 (4.0-11.0) th/mm3 RBC 3.83 L (4.50-5.90) mil/mm3 Hgb 13.8 (13.0-17.0) gm/dL Hct 41.7 (39.0-51.0) % MCV 108.8 H (80.0-100.0) fL MCH 36.1 H (27.0-34.0) pg MCHC 33.2 (32.0-36.0) % RDW 14.2 (11.6-17.2) % Plt Count 88 L (150-450) th/mm3 MPV 8.2 (7.0-11.0) fL Prelim Diff (Auto) Slide review pending Neut % (Auto) 43.2 (16.0-70.0) % Lymph % (Auto) 45.6 H (9.0-44.0) % [place] % (Auto) 9.6 H (0.0-8.0) % Eos % (Auto) 1.0 (0.0-4.0) % Baso % (Auto) 0.6 (0.0-2.0) % Neut # (Auto) 2.3 (1.8-7.7) th/mm3 Lymph # (Auto) 2.4 (1.0-4.8) th/mm3 [place] # (Auto) 0.5 (0.0-0.9) th/mm3 Eos # (Auto) 0.1 (0.0-0.4) th/mm3 Baso # (Auto) 0.0 (0.0-0.2) th/mm3 WBC Differential . Diff Scan Auto diff confirmed Differential Comment . Platelet Estimate Low L (Normal) Platelet Morphology Normal (Normal) Sodium 143 (136-145) meq/L Potassium 4.8 (3.5-5.1) meq/L Chloride 103 (98-107) meq/L Carbon Dioxide 23.1 (21.0-32.0) meq/L Anion Gap 17 H (5-15) meq/L BUN 8 (7-18) mg/dL Creatinine 1.20 (0.60-1.30) mg/dL Estimated GFR 63 L (>89) mL/min Random Glucose 77 (74-106) mg/dL Calcium 9.3 (8.5-10.1) mg/dL Magnesium 1.8 (1.5-2.5) mg/dL Serum Alcohol 114 H (0-5) mg/dL Discharge Plan Discharge Disposition Patient Disposition: ED Admit(ED Internal Use Only) Discharge Condition Condition: Stable Discharge Order Discharge Orders: ED Use Only Admit Order (Routine); Ordered 01/14/19 Ordered By: Lily Dove Discharge Details Diagnosis: Alcohol withdrawal Physicians Team ED Provider: Lily Dove Primary Care Provider: Primary Care Jollyi,Venecia Rxs /Orders / Referrals /Forms Prescriptions: No Action Unable to Obtain Home Meds RF: 0 Discharge Interventions Interventions: Vital Signs Last Done: 01/14/19 10:00 Status ED Status: With Doctor
[2019-01-14 08:00] LABS: Baso % (Auto) 0.6 % (0.0-2.0); Eos # (Auto) 0.1 th/mm3 (0.0-0.4); Hematocrit 41.7 % (39.0-51.0); Hemoglobin 13.8 gm/dL (13.0-17.0); Lymph # (Auto) 2.4 th/mm3 (1.0-4.8); Lymph % (Auto) 45.6 % (9.0-44.0); Mean Corpuscular HGB Conc 33.2 % (32.0-36.0); Mean Corpuscular Hemoglobin 36.1 pg (27.0-34.0); Mean Corpuscular Volume 108.8 fL (80.0-100.0); Mean Platelet Volume 8.2 fL (7.0-11.0); Mono # (Auto) 0.5 th/mm3 (0.0-0.9); Mono % (Auto) 9.6 % (0.0-8.0); Neut # (Auto) 2.3 th/mm3 (1.8-7.7); Neut % (Auto) 43.2 % (16.0-70.0); Platelet Count 88 th/mm3 (150-450); Red Blood Count 3.83 mil/mm3 (4.50-5.90); Red Cell Distribution Width 14.2 % (11.6-17.2); White Blood Count 5.3 th/mm3 (4.0-11.0)
[2019-01-14 08:17] LABS: Calcium 9.3 mg/dL (8.5-10.1); Carbon Dioxide 23.1 meq/L (21.0-32.0); Magnesium 1.8 mg/dL (1.5-2.5); Potassium 4.8 meq/L (3.5-5.1)
[2019-01-14 08:55] LABS: Platelet Morphology Normal (Normal)
[2019-01-14] MEDS ORDERED: Bisacodyl 10 MG Supp RECTAL PRN (10:21)
[2019-01-14] MEDS ORDERED: Acetaminophen 325 MG Tablet PO PRN (10:21)
--- NOTE | 2019-01-14 10:37 | P.HPFP ---
History of Present Illness Service: medicine B <Samantha Pittman 01/14/19 10:37> Primary Care Physician: No Primary Care Physician <Macie Gilbert 01/14/19 21:33> No Primary Care Physician <Samantha Pittman 01/14/19 10:37> Chief Complaint: seizures <Samantha Pittman 01/14/19 10:37> History of Present Illness: 58M with PMHx of seizures and alcohol withdrawal presented to the ED by evac for seizures in front of [employer] at [facility]. patient is a poor historian. Patient reports waking up this morning shaking and feeling unwell. Last reported drink was yesterday in the morning (1 beer). He reports that in order to "keep the shakes off", he drinks 2-3 beers per day. As the day progressed, he reported feeling more dizzy with increasing difficulty in walking and talking. Reports headaches, blurry vision, neck pain, chills, sweats, tremors, muscle cramps. Denies LOC or falling before hospital admission. Denies chest pain, SOB, abdominal pain, blood in stools/urine, nausea , vomiting. Pt received 3mg ativan at the ED after a seizure episode prior to being examined by us. PMHx: seizures, alcohol use, broken neck (C2) PSHx: right ankle surgery Social Hx: homeless for the last 3 years, 1/2 ppd tobacco use for more than 30 years, consumed alcohol since 19yrs old. Denies any illicit drug use or any history of HIV or any STI's other than one episode of gonorrhea in the past. FHx: mother from leukemia, father from cirrhosis, also drank. Both parents when he was young Meds: currently not taking any, reports that he is supposed to be on seizure medication but he can't afford them Allergies: none reported <Samantha Pittman 01/14/19 17:43> Inpatient Certification: I certify that the inpatient services were ordered in accordance with Medicare regulations governing the order. This includes certification that hospital inpatient services are reasonable and necessary and in the case of services not specified as inpatient-only under 42 CFR 419.22(n), that they are appropriately provided as inpatient services in accordance to with the 2-midnight benchmark under 43 CFR 412.3(e) <Macie Gilbert 01/14/19 21:33> Estimated Total Length of Stay (Days): 2 <Samantha Pittman 01/14/19 11:45> Plans for Post Hospital Care: Other (Patient is homeless) <Samantha Pittman 01/14/19 11:45> Review of Systems Constitutional: Reports chills, Reports excessive sweating, Reports malaise < Samantha Pittman 01/14/19 10:37> PMFSH - History History Provided By: Patient <Samantha Pittman 01/14/19 10:37> - Medical History Medical History: Medical History (Last Updated 01/14/19 @ 07:41 by Lily Dove) Patient denies medical problems Seizure Cervical spine fracture <Macie Gilbert 01/14/19 21:33> Medical History (Last Updated 01/14/19 @ 07:41 by Lily Dove) Patient denies medical problems Seizure Cervical spine fracture <Samantha Pittman 01/14/19 10:37> - Surgical History Surgical History: Surgical History (Last Reviewed 01/14/19 @ 07:40 by Lily Dove) History of removal of testicle <Macie Gilbert 01/14/19 21:33> Surgical History (Last Reviewed 01/14/19 @ 07:40 by Lily Dove) History of removal of testicle <Dany Pittman01/14/19 10:37> - Tobacco History Second Hand Smoke Exposure: No <Samantha Pittman 01/14/19 10:37> Tobacco Use In Past 30 Days: No <Samantha Pittman 01/14/19 10:37> Smoking Status: Unknown if ever smoked <Samantha Pittman 01/14/19 10:37> Tobacco Type: Cigarettes <Samantha Pittman 01/14/19 10:37> - Alcohol History How Often Do You Have a Drink Containing Alcohol: Unable to Obtain <Samantha Pittman 01/14/19 10:37> - Substance Use History Substance History: Unable to Obtain <Samantha Pittman 01/14/19 10:37> - Travel History Recent Travel in the [facility] Within the Last 8 Weeks: No <ZainSamantha 01/14/19 10:37 > Recent Travel Out of the Country Within the Last 8 Weeks: No <Samantha Pittman - 10:37> - Immunization History Tetanus Immunization: Unsure <Samantha Pittman - 01/14/19 10:37> Medications and Allergies Allergies Allergy/AdvReac Type Severity Reaction Status Date / Time Fish Containing Products Allergy Severe Anaphylaxis Verified 05/30/18 21:03 penicillin G Allergy Unknown Hives Verified 05/30/18 21:03 <Sarah Gilberte - 01/14/19 21:33> Home Medications Medication Instructions Recorded Confirmed Type Unable to Obtain Home Meds 10/08/18 01/14/19 History <Sarah Gilberte - 01/14/19 21:33> Active Medications: Active Medications Acetaminophen (Tylenol) 650 mg PO Q4H PRN PRN Reason: Temp > 100.4 Al Hydroxide/Mg Hydroxide (Milk Of Magnesia Liq) 30 ml PO Q12H PRN PRN Reason: Mild Constipation Bisacodyl (Dulcolax Supp) 10 mg RECTAL DAILY PRN PRN Reason: SEVERE CONSITIPATION Flumazenil (Romazicon Inj) 0.2 mg IV.PUSH Q1M PRN PRN Reason: OVERSEDATION Haloperidol Lactate (Haldol Inj) 1 mg IV.PUSH Q15M PRN PRN Reason: for severe agitation Sodium Chloride (Ns Inj) 1,000 mls @ 100 mls/hr IV.CONT .Q10H [facility] Last Admin: 01/14/19 17:59 Dose: 100 mls/hr Multivitamins 10 ml/ Thiamine HCl 100 mg/ Folic Acid 1 mg/Sodium Chloride 511.2 mls @ 127.8 mls/hr IV.SIG Q24H [facility] Last Infusion: 01/14/19 18:56 Dose: Infused Lactulose (Lactulose Liq) 30 ml PO DAILY PRN PRN Reason: SEVERE CONSITIPATION Levetiracetam (Keppra) 500 mg PO BID [facility] Last Admin: 01/14/19 20:36 Dose: 500 mg Lorazepam (Ativan) 1 mg PO Q4H PRN PRN Reason: for CIWA 8-10 Lorazepam (Ativan) 2 mg PO Q2H PRN PRN Reason: for CIWA 11-14 Last Admin: 01/14/19 20:37 Dose: 2 mg Lorazepam (Ativan Inj) 2 mg IV.PUSH Q2H PRN PRN Reason: for CIWA 11-14 Last Admin: 01/14/19 14:47 Dose: 2 mg Lorazepam (Ativan Inj) 2 mg IV.PUSH Q1H PRN PRN Reason: for CIWA 15-20 Lorazepam (Ativan Inj) 2 mg IV.PUSH Q15M PRN PRN Reason: for CIWA > 20 Last Admin: 01/14/19 13:53 Dose: 2 mg Lorazepam (Ativan Inj) 1 mg IV.PUSH Q4H PRN PRN Reason: for CIWA 8-10 Metoprolol Tartrate (Lopressor) 12.5 mg PO Q4H PRN PRN Reason: SEE DOSE INSTRUCTIONS Ondansetron HCl (Zofran Inj) 4 mg IV.PUSH Q6H PRN PRN Reason: NAUSEA OR VOMITING Senna/Docusate Sodium (Thuy-Colace) 1 tab PO BID [facility] Last Admin: 01/14/19 20:37 Dose: 1 tab Sennosides (Senokot) 17.2 mg PO Q12H PRN PRN Reason: Moderate Constipation Sodium Chloride (Ns Flush) 2 ml IV.FLUSH PRN PRN PRN Reason: FLUSH AFTER USING IV ACCESS Sodium Chloride (Ns Flush) 2 ml IV.FLUSH BID [facility] Last Admin: 01/14/19 20:37 Dose: 2 ml Sodium Chloride (Ns Flush) 2 ml IV.FLUSH PRN PRN PRN Reason: FLUSH AFTER USING IV ACCESS <Macie Gilbert - 01/14/19 21:33> Active Medications Sodium Chloride (Ns Flush) 2 ml IV.FLUSH PRN PRN PRN Reason: FLUSH AFTER USING IV ACCESS <Samantha Pittman - 01/14/19 10:37> Exam Vital signs: Vital Signs 01/14/19 07:18 01/14/19 07:30 01/14/19 07:31 Temperature 98.0 F Pulse Rate 135 H 168 H 141 H Respiratory Rate 24 22 Blood Pressure 154/78 H 138/81 Pulse Oximetry 99 99 99 01/14/19 08:06 01/14/19 09:00 01/14/19 09:30 Temperature Pulse Rate 108 H 96 H 94 H Respiratory Rate 16 16 20 Blood Pressure 133/65 141/81 H Pulse Oximetry 99 100 99 01/14/19 10:00 01/14/19 12:03 01/14/19 13:00 Temperature Pulse Rate 123 H 90 146 H Respiratory Rate 20 18 26 H Blood Pressure 144/86 H 134/97 H Pulse Oximetry 100 98 01/14/19 13:06 01/14/19 16:00 01/14/19 16:54 Temperature 99.0 F Pulse Rate 99 H 124 H 102 H Respiratory Rate 18 20 Blood Pressure 140/93 H 132/81 Pulse Oximetry 97 98 01/14/19 19:55 Temperature 98.2 F Pulse Rate 113 H Respiratory Rate 18 Blood Pressure 118/75 Pulse Oximetry 97 Intake & Output 01/14/19 01/14/19 01/15/19 06:59 18:59 06:59 Intake Total 1511.2 / 1511.2 Output Total 275 / 275 Balance 1236.2 / 1236.2 Weight 58.967 kg Intake: IV 1511.2 / 1511.2 MVI-12 Inj 10 ML Thiamine Inj 511.2 / 511.2 100 MG Folvite Inj 1 MG In NS Inj 500 ML @ 127.8 mls/hr IV. SIG Q24H MARIANA Rx#:[id number] NS Inj 1,000 ML @ Wide Open IV. 1000 / 1000 SIG BOLUS ONE Rx#:[id number] Output: Urine 275 / 275 Other: # Voids 1 <Macie Gilbert - 01/14/19 21:33> Vital Signs 01/14/19 07:18 01/14/19 07:30 01/14/19 07:31 Temperature 98.0 F Pulse Rate 135 H 168 H 141 H Respiratory Rate 24 22 Blood Pressure 154/78 H 138/81 Pulse Oximetry 99 99 99 01/14/19 08:06 01/14/19 09:00 01/14/19 09:30 Temperature Pulse Rate 108 H 96 H 94 H Respiratory Rate 16 16 20 Blood Pressure 133/65 141/81 H Pulse Oximetry 99 100 99 01/14/19 10:00 Temperature Pulse Rate 123 H Respiratory Rate 20 Blood Pressure 144/86 H Pulse Oximetry 100 Intake & Output 01/13/19 01/14/19 01/14/19 18:59 06:59 18:59 Intake Total 1000 / 1000 Output Total 275 / 275 Balance 725 / 725 Weight 58.967 kg Intake: IV 1000 / 1000 NS Inj 1,000 ML @ Wide Open IV. 1000 / 1000 SIG BOLUS ONE Rx#:[id number] Output: Urine 275 / 275 Other: # Voids 1 <Samantha Pittman - 01/14/19 10:37> Narrative: GENERAL: Pleasant, cooperative, malodorous male who tremulous but was in no acute distress. Malodorous fluid present in clothing, possibly urine. SKIN: Warm and dry. Small bruise present on right lower back HEAD: Normocephalic. Atraumatic. Poor dentition with several missing front teeth EYES: PERRLA, EOMI. No scleral icterus. No injection or drainage. No nystagmus NECK: Supple, trachea midline. No JVD or lymphadenopathy. CARDIOVASCULAR: Regular rate and rhythm without murmurs, gallops, or rubs. Chest wall nontender to palpation RESPIRATORY: Breath sounds equal bilaterally. No wheezing or crackles. No accessory muscle use. GASTROINTESTINAL: Abdomen soft, non-tender, nondistended. Normoactive BS EXTREMITIES: Unable to extend upper extremities fully due to tremors and cramping. Pain on plantar flexion on the left foot, no obvious signs of deformity, erythema, or swelling. no calf tenderness bilaterally. 5/5 muscle strength in lower and upper extremities NEUROLOGICAL: Awake, alert, and oriented x 3. CN 2-11 intact. Generalized tremors present. <Samantha Pittman - 01/14/19 12:14> Results - Labs Result diagrams: 01/14/19 07:30 01/14/19 07:30 <Macie Gilbert - 01/14/19 21:33> Abnormal lab results 01/14/19 01/14/19 01/14/19 Range/Units 07:30 07:30 07:30 RBC 3.83 L (4.50-5.90) mil/mm3 MCV 108.8 H (80.0-100.0) fL MCH 36.1 H (27.0-34.0) pg Plt Count 88 L (150-450) th/mm3 Lymph % (Auto) 45.6 H (9.0-44.0) % [place] % (Auto) 9.6 H (0.0-8.0) % Platelet Estimate Low L (Normal) Anion Gap 17 H (5-15) meq/L Estimated GFR 63 L (>89) mL/min AST 180 H (15-37) U/L ALT 113 H (12-78) U/L Ammonia (11-32) mcmol/L Total Creatine Kinase 680 H (39-308) U/L CK-MB (CK-2) 8.4 H (0.5-3.6) ng/mL Troponin I (0.02-0.05) ng/mL Total Protein 9.0 H (6.4-8.2) g/dL Serum Alcohol 114 H (0-5) mg/dL 01/14/19 01/14/19 Range/Units 14:08 14:08 RBC (4.50-5.90) mil/mm3 MCV (80.0-100.0) fL MCH (27.0-34.0) pg Plt Count (150-450) th/mm3 Lymph % (Auto) (9.0-44.0) % [place] % (Auto) (0.0-8.0) % Platelet Estimate (Normal) Anion Gap (5-15) meq/L Estimated GFR (>89) mL/min AST (15-37) U/L ALT (12-78) U/L Ammonia 46 H (11-32) mcmol/L Total Creatine Kinase (39-308) U/L CK-MB (CK-2) (0.5-3.6) ng/mL Troponin I Less than 0.02 L (0.02-0.05) ng/mL Total Protein (6.4-8.2) g/dL Serum Alcohol (0-5) mg/dL Short CBC 01/14/19 Range/Units 07:30 WBC 5.3 (4.0-11.0) th/mm3 Hgb 13.8 (13.0-17.0) gm/dL Hct 41.7 (39.0-51.0) % Plt Count 88 L (150-450) th/mm3 BMP 01/14/19 07:30 Sodium 143 Potassium 4.8 Chloride 103 Carbon Dioxide 23.1 BUN 8 Creatinine 1.20 Calcium 9.3 Cardiac Enzymes 01/14/19 01/14/19 Range/Units 07:30 14:08 Total Creatine Kinase 680 H (39-308) U/L CK-MB (CK-2) 8.4 H (0.5-3.6) ng/mL Troponin I Less than 0.02 L (0.02-0.05) ng/mL Liver Function 01/14/19 Range/Units 07:30 Total Bilirubin 0.9 (0.2-1.0) mg/dL Direct Bilirubin 0.2 (0.0-0.2) mg/dL AST 180 H (15-37) U/L ALT 113 H (12-78) U/L Alkaline Phosphatase 98 (45-117) U/L Albumin 4.4 (3.4-5.0) g/dL <Macie Gilbert - 01/14/19 21:33> Abnormal lab results 01/14/19 01/14/19 Range/Units 07:30 07:30 RBC 3.83 L (4.50-5.90) mil/mm3 MCV 108.8 H (80.0-100.0) fL MCH 36.1 H (27.0-34.0) pg Plt Count 88 L (150-450) th/mm3 Lymph % (Auto) 45.6 H (9.0-44.0) % [place] % (Auto) 9.6 H (0.0-8.0) % Platelet Estimate Low L (Normal) Anion Gap 17 H (5-15) meq/L Estimated GFR 63 L (>89) mL/min Serum Alcohol 114 H (0-5) mg/dL Short CBC 01/14/19 Range/Units 07:30 WBC 5.3 (4.0-11.0) th/mm3 Hgb 13.8 (13.0-17.0) gm/dL Hct 41.7 (39.0-51.0) % Plt Count 88 L (150-450) th/mm3 BMP 01/14/19 07:30 Sodium 143 Potassium 4.8 Chloride 103 Carbon Dioxide 23.1 BUN 8 Creatinine 1.20 Calcium 9.3 <Samantha Pittman - 01/14/19 10:37> - Imaging Impressions Head CT 01/14/19 00:00 CONCLUSION: 1. Negative noncontrast CT brain. . . <Macie Gilbert - 01/14/19 21:33> Caprini VTE Risk Assessment Caprini VTE Risk Assessment: No/Low Risk (score <= 1) <Samantha Pittman - 01/14/19 17: 43> Caprini Risk Assessment Model: Point Value = 1 Point Value = 2 Point Value = 3 Point Value = 5 Age 41-60 Minor surgery BMI > 25 kg/m2 Swollen legs Varicose veins or History of unexplained or recurrent spontaneous Oral contraceptives or hormone replacement Sepsis (< 1 month) Serious lung disease, including pneumonia (< 1 month) Abnormal pulmonary function Acute myocardial infarction Congestive heart failure (< 1 month) History of inflammatory bowel disease Medical patient at bed rest Age 61-74 Arthroscopic surgery Major open surgery (> 45 min) Laparoscopic surgery (> 45 min) Malignancy Confined to bed (> 72 hours) Immobilizing plaster cast Central venous access Age >= 75 History of VTE Family history of VTE Factor V Leiden Prothrombin [id number] Lupus anticoagulant Anticardiolipin antibodies Elevated serum homocysteine Heparin-induced thrombocytopenia Other congenital or acquired thrombophilia Stroke (< 1 month) Elective arthroplasty Hip, pelvis, or leg fracture Acute spinal cord injury (< 1 month) <Macie Gilbert - 01/14/19 21:33> Point Value = 1 Point Value = 2 Point Value = 3 Point Value = 5 Age 41-60 Minor surgery BMI > 25 kg/m2 Swollen legs Varicose veins or History of unexplained or recurrent spontaneous Oral contraceptives or hormone replacement Sepsis (< 1 month) Serious lung disease, including pneumonia (< 1 month) Abnormal pulmonary function Acute myocardial infarction Congestive heart failure (< 1 month) History of inflammatory bowel disease Medical patient at bed rest Age 61-74 Arthroscopic surgery Major open surgery (> 45 min) Laparoscopic surgery (> 45 min) Malignancy Confined to bed (> 72 hours) Immobilizing plaster cast Central venous access Age >= 75 History of VTE Family history of VTE Factor V Leiden Prothrombin [id number] Lupus anticoagulant Anticardiolipin antibodies Elevated serum homocysteine Heparin-induced thrombocytopenia Other congenital or acquired thrombophilia Stroke (< 1 month) Elective arthroplasty Hip, pelvis, or leg fracture Acute spinal cord injury (< 1 month) <Samantha Pittman - 01/14/19 17:43> Prophylaxis Regimen: Total Risk Factor Score Risk Level Prophylaxis Regimen 0-1 Low Early ambulation 2 Moderate Order ONE of the following: *Sequential Compression Device (SCD) *Heparin 5000 units SQ BID 3-4 Higher Order ONE of the following medications: *Heparin 5000 units SQ TID *Enoxaparin/Lovenox 40 mg SQ daily (WT < 150 kg, CrCl > 30 mL/min) *Enoxaparin/Lovenox 30 mg SQ daily (WT < 150 kg, CrCl > 10-29 mL/min) *Enoxaparin/Lovenox 30 mg SQ BID (WT < 150 kg, CrCl > 30 mL/min) AND/OR *Sequential Compression Device (SCD) 5 or more Highest Order ONE of the following medications: *Heparin 5000 units SQ TID (Preferred with Epidurals) *Enoxaparin/Lovenox 40 mg SQ daily (WT < 150 kg, CrCl > 30 mL/min) *Enoxaparin/Lovenox 30 mg SQ daily (WT < 150 kg, CrCl > 10-29 mL/min) *Enoxaparin/Lovenox 30 mg SQ BID (WT < 150 kg, CrCl > 30 mL/min) AND *Sequential Compression Device (SCD) <Macie iGlbert 01/14/19 21:33> Total Risk Factor Score Risk Level Prophylaxis Regimen 0-1 Low Early ambulation 2 Moderate Order ONE of the following: *Sequential Compression Device (SCD) *Heparin 5000 units SQ BID 3-4 Higher Order ONE of the following medications: *Heparin 5000 units SQ TID *Enoxaparin/Lovenox 40 mg SQ daily (WT < 150 kg, CrCl > 30 mL/min) *Enoxaparin/Lovenox 30 mg SQ daily (WT < 150 kg, CrCl > 10-29 mL/min) *Enoxaparin/Lovenox 30 mg SQ BID (WT < 150 kg, CrCl > 30 mL/min) AND/OR *Sequential Compression Device (SCD) 5 or more Highest Order ONE of the following medications: *Heparin 5000 units SQ TID (Preferred with Epidurals) *Enoxaparin/Lovenox 40 mg SQ daily (WT < 150 kg, CrCl > 30 mL/min) *Enoxaparin/Lovenox 30 mg SQ daily (WT < 150 kg, CrCl > 10-29 mL/min) *Enoxaparin/Lovenox 30 mg SQ BID (WT < 150 kg, CrCl > 30 mL/min) AND *Sequential Compression Device (SCD) <Samantha Pittman 01/14/19 17:43> Assessment and Plan - Assessment and Plan 1. Seizures Received 2 doses of Ativan in the ED for a seizure episode CBC shows macrocytic anemia which corresponds with patient's alcohol use disorder Lactic acid levels wnl elevated total CK and ammonia levels, cont to monitor levels elevated LFT's likely 2/2 alcohol use disorder EKG pending 1x troponin wnl Placed on telemetry [facility] protocol Neuro consult for seizure workup EEG ordered CT head with no contrast showed no abnormalities 2. Alcohol Withdrawal- history of alcohol use since 19yo NS IVF 100mls/hr Vitamin replacement ordered Serum EtOH on admission 114 VTE Prophylaxis: early ambulation Dispo: transfer to medical floor <Samantha Pittman - 01/14/19 17:43> - Attending Attestation Patient seen and examined, discussed with medical student and resident team. I agree with assessment and management as documented and discussed with me. I personally performed and verify history, physical exam, and medical decision making. I certify that two midnight stay is anticipated and warranted. Jag Addison is a 58yo gentleman with h/o alcohol abuse admitted for seizure and alcohol withdrawal. His last drink was yesterday, with 1 beer and two days ago he drank his normal amount (reportedly 3 beers). Additional diagnosis: Thrombocytopenia: Secondary to alcohol abuse. No active bleeding. Monitor with CBC in AM. <Macie Gilbert - 01/14/19 21:33>
[2019-01-14 11:36] LABS: Albumin 4.4 g/dL (3.4-5.0)
--- NOTE | 2019-01-14 11:46 | CT ---
EXAM DATE: 01/14/2019 11:27 AM EST AGE/SEX: 58 years / Male INDICATIONS: Seizures. CLINICAL DATA: This is the patient's initial encounter. Patient reports that signs and symptoms have been present for 1 day and indicates a pain score of 0/10. MEDICAL/SURGICAL HISTORY: Seizures. ETOH, c-spine fracture None. RADIATION DOSE: 56.41 CTDI (mGy) COMPARISON: [facility] [place], CT HEAD W/O CONTRAST, 07/29/2018. . TECHNIQUE: CT of the head without contrast. Using automated exposure control and adjustment of the mA and/or kV according to patient size, radiation dose was kept as low as reasonably achievable to ob tain optimal diagnostic quality images. DICOM format image data is available electronically for revi ew and comparison. FINDINGS: Cerebrum: The ventricles are normal for age. No evidence of midline shift, mass lesion, hemorrhage or acute infarction. No extraaxial fluid collections are seen. Posterior Fossa: The cerebellum and brainstem are intact. The 4th ventricle is midline. The cerebe llopontine angle is unremarkable. Extracranial: The visualized portion of the orbits is intact. Skull: The calvaria is intact. No evidence of skull fracture. CONCLUSION: 1. Negative noncontrast CT brain. . . Electronically signed by: Francisco Iyer MD Board Certified Radiologist 01/14/2019 11:45 AM EST
[2019-01-14 11:56] LABS: CKMB Percent 1.2 % (0.0-4.0); Creatine Kinase MB 8.4 ng/mL (0.5-3.6)
[2019-01-14] MEDS: Multivitamin Inj 10 ML, Thiamine Inj 100 MG, Folic Acid Inj 1 MG in Sodium Chlor 0.9% I... IV.SIG SCH (11:58)
[2019-01-14] MEDS: Sod Chloride 0.9% Inj 1,000 ML IV.CONT SCH ×2 (17:59→22:25)
[2019-01-14] MEDS ORDERED: Metoprolol Tartrate 25 MG Tablet PO PRN (18:40)
--- NOTE | 2019-01-14 19:11 | P.CONNEU ---
History of Present Illness Service: Neurology Primary Care Provider: No Primary Care Physician Chief Complaint: seizures History of Present Illness: 58-year-old male who lives in the [facility] admitted for seizure activity. Apparently noted to have a seizure in the ER. History of previous admission for ethanol intoxication 2018, head injury in 2017.. Patient states he drinks sometimes. Denies any head or neck trauma, any binge drinking. Does not take any anticonvulsant agents. Denies any family history of seizures. Review of Systems All other systems reviewed negative except as stated in [facility] - History History Provided By: Patient - Medical History Medical History: Medical History (Last Updated 01/14/19 @ 07:41 by Lily Dove) Patient denies medical problems Seizure Cervical spine fracture - Surgical History Surgical History: Surgical History (Last Reviewed 01/14/19 @ 07:40 by Lily Dove) History of removal of testicle - Tobacco History Second Hand Smoke Exposure: No Tobacco Use In Past 30 Days: No Smoking Status: Unknown if ever smoked Tobacco Type: Cigarettes - Alcohol History How Often Do You Have a Drink Containing Alcohol: Unable to Obtain - Substance Use History Substance History: Unable to Obtain - Travel History Recent Travel in the [place] Within the Last 8 Weeks: No Recent Travel Out of the Country Within the Last 8 Weeks: No - Immunization History Tetanus Immunization: Unsure Medications and Allergies Active Medications: Active Medications Acetaminophen (Tylenol) 650 mg PO Q4H PRN PRN Reason: Temp > 100.4 Al Hydroxide/Mg Hydroxide (Milk Of Jesse Liyordan) 30 ml PO Q12H PRN PRN Reason: Mild Constipation Bisacodyl (Dulcolax Supp) 10 mg RECTAL DAILY PRN PRN Reason: SEVERE CONSITIPATION Flumazenil (Romazicon Inj) 0.2 mg IV.PUSH Q1M PRN PRN Reason: OVERSEDATION Haloperidol Lactate (Haldol Inj) 1 mg IV.PUSH Q15M PRN PRN Reason: for severe agitation Sodium Chloride (Ns Inj) 1,000 mls @ 100 mls/hr IV.CONT .Q10H [facility] Last Admin: 01/14/19 17:59 Dose: 100 mls/hr Multivitamins 10 ml/ Thiamine HCl 100 mg/ Folic Acid 1 mg/Sodium Chloride 511.2 mls @ 127.8 mls/hr IV.SIG Q24H MARIANA Last Infusion: 01/14/19 18:56 Dose: Infused Lactulose (Lactulose Liq) 30 ml PO DAILY PRN PRN Reason: SEVERE CONSITIPATION Lorazepam (Ativan) 1 mg PO Q4H PRN PRN Reason: for CIWA 8-10 Lorazepam (Ativan) 2 mg PO Q2H PRN PRN Reason: for CIWA 11-14 Lorazepam (Ativan Inj) 2 mg IV.PUSH Q2H PRN PRN Reason: for CIWA 11-14 Last Admin: 01/14/19 14:47 Dose: 2 mg Lorazepam (Ativan Inj) 2 mg IV.PUSH Q1H PRN PRN Reason: for CIWA 15-20 Lorazepam (Ativan Inj) 2 mg IV.PUSH Q15M PRN PRN Reason: for CIWA > 20 Last Admin: 01/14/19 13:53 Dose: 2 mg Lorazepam (Ativan Inj) 1 mg IV.PUSH Q4H PRN PRN Reason: for CIWA 8-10 Metoprolol Tartrate (Lopressor) 12.5 mg PO Q4H PRN PRN Reason: SEE DOSE INSTRUCTIONS Ondansetron HCl (Zofran Inj) 4 mg IV.PUSH Q6H PRN PRN Reason: NAUSEA OR VOMITING Senna/Docusate Sodium (Thuy-Colace) 1 tab PO BID MARIANA Sennosides (Senokot) 17.2 mg PO Q12H PRN PRN Reason: Moderate Constipation Sodium Chloride (Ns Flush) 2 ml IV.FLUSH PRN PRN PRN Reason: FLUSH AFTER USING IV ACCESS Sodium Chloride (Ns Flush) 2 ml IV.FLUSH BID MARIANA Sodium Chloride (Ns Flush) 2 ml IV.FLUSH PRN PRN PRN Reason: FLUSH AFTER USING IV ACCESS Allergies Allergy/AdvReac Type Severity Reaction Status Date / Time Fish Containing Products Allergy Severe Anaphylaxis Verified 05/30/18 21:03 penicillin G Allergy Unknown Hives Verified 05/30/18 21:03 Home Medications Medication Instructions Recorded Confirmed Type Unable to Obtain Home Meds 10/08/18 01/14/19 History Exam Vital signs: Vital Signs 01/14/19 07:18 01/14/19 07:30 01/14/19 07:31 Temperature 98.0 F Pulse Rate 135 H 168 H 141 H Respiratory Rate 24 22 Blood Pressure 154/78 H 138/81 Pulse Oximetry 99 99 99 01/14/19 08:06 01/14/19 09:00 01/14/19 09:30 Temperature Pulse Rate 108 H 96 H 94 H Respiratory Rate 16 16 20 Blood Pressure 133/65 141/81 H Pulse Oximetry 99 100 99 01/14/19 10:00 01/14/19 12:03 01/14/19 13:00 Temperature Pulse Rate 123 H 90 146 H Respiratory Rate 20 18 26 H Blood Pressure 144/86 H 134/97 H Pulse Oximetry 100 98 01/14/19 13:06 01/14/19 16:00 01/14/19 16:54 Temperature 99.0 F Pulse Rate 99 H 124 H 102 H Respiratory Rate 18 20 Blood Pressure 140/93 H 132/81 Pulse Oximetry 97 98 Intake & Output 01/14/19 01/14/19 01/15/19 06:59 18:59 06:59 Intake Total 1511.2 / 1511.2 Output Total 275 / 275 Balance 1236.2 / 1236.2 Weight 58.967 kg Intake: IV 1511.2 / 1511.2 MVI-12 Inj 10 ML Thiamine Inj 511.2 / 511.2 100 MG Folvite Inj 1 MG In NS Inj 500 ML @ 127.8 mls/hr IV. SIG Q24H [facility]IANA Rx#:[id number] NS Inj 1,000 ML @ Wide Open IV. 1000 / 1000 SIG BOLUS ONE Rx#:[id number] Output: Urine 275 / 275 Other: # Voids 1 Narrative: Disheveled, awake alert oriented x2 nose is in hospital follow simple motor request mildly tremulous denies any hallucinations, moves all 4 extremity gravity Results - Labs CBC & Chem 7: 01/14/19 07:30 01/14/19 07:30 Labs: Laboratory Results - last 24 hr 01/14/19 01/14/19 01/14/19 07:30 07:30 07:30 WBC 5.3 RBC 3.83 L Hgb 13.8 Hct 41.7 MCV 108.8 H MCH 36.1 H MCHC 33.2 RDW 14.2 Plt Count 88 L MPV 8.2 Prelim Diff (Auto) Slide review pending Neut % (Auto) 43.2 Lymph % (Auto) 45.6 H Dawes % (Auto) 9.6 H Eos % (Auto) 1.0 Baso % (Auto) 0.6 Neut # (Auto) 2.3 Lymph # (Auto) 2.4 Dawes # (Auto) 0.5 Eos # (Auto) 0.1 Baso # (Auto) 0.0 WBC Differential . Diff Scan Auto diff confirmed Differential Comment . Platelet Estimate Low L Platelet Morphology Normal Sodium 143 Potassium 4.8 Chloride 103 Carbon Dioxide 23.1 Anion Gap 17 H BUN 8 Creatinine 1.20 Estimated GFR 63 L POC Glucose Random Glucose 77 Lactic Acid Calcium 9.3 Magnesium 1.8 Total Bilirubin 0.9 Direct Bilirubin 0.2 Indirect Bilirubin 0.7 AST 180 H ALT 113 H Alkaline Phosphatase 98 Ammonia Total Creatine Kinase 680 H CK-MB (CK-2) 8.4 H CK-MB (CK-2) % 1.2 Troponin I Total Protein 9.0 H Albumin 4.4 Serum Alcohol 114 H 01/14/19 01/14/19 01/14/19 14:08 14:08 14:08 WBC RBC Hgb Hct MCV MCH MCHC RDW Plt Count MPV Prelim Diff (Auto) Neut % (Auto) Lymph % (Auto) Dawes % (Auto) Eos % (Auto) Baso % (Auto) Neut # (Auto) Lymph # (Auto) Dawes # (Auto) Eos # (Auto) Baso # (Auto) WBC Differential Diff Scan Differential Comment Platelet Estimate Platelet Morphology Sodium Potassium Chloride Carbon Dioxide Anion Gap BUN Creatinine Estimated GFR POC Glucose Random Glucose Lactic Acid 1.5 Calcium Magnesium Total Bilirubin Direct Bilirubin Indirect Bilirubin AST ALT Alkaline Phosphatase Ammonia 46 H Total Creatine Kinase CK-MB (CK-2) CK-MB (CK-2) % Troponin I Less than 0.02 L Total Protein Albumin Serum Alcohol 01/14/19 17:55 WBC RBC Hgb Hct MCV MCH MCHC RDW Plt Count MPV Prelim Diff (Auto) Neut % (Auto) Lymph % (Auto) Dawes % (Auto) Eos % (Auto) Baso % (Auto) Neut # (Auto) Lymph # (Auto) Dawes # (Auto) Eos # (Auto) Baso # (Auto) WBC Differential Diff Scan Differential Comment Platelet Estimate Platelet Morphology Sodium Potassium Chloride Carbon Dioxide Anion Gap BUN Creatinine Estimated GFR POC Glucose 93 Random Glucose Lactic Acid Calcium Magnesium Total Bilirubin Direct Bilirubin Indirect Bilirubin AST ALT Alkaline Phosphatase Ammonia Total Creatine Kinase CK-MB (CK-2) CK-MB (CK-2) % Troponin I Total Protein Albumin Serum Alcohol - Imaging Impressions Head CT 01/14/19 00:00 CONCLUSION: 1. Negative noncontrast CT brain. . . 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 May be susceptible to seizures secondary to head injury in addition to chronic ethanol use CT brain this admission negative for any acute lesion. Ethanol level 114 Next Recommendation Seizure fall precaution Alcohol withdrawal protocol/management Keppra 500 twice daily Compliance likely an issue We will sign off call if any questions No driving, operating any heavy machinery or dangerous machinery, swimming alone for at least 6 months of being seizure, spell free.
--- NOTE | 2019-01-14 19:31 | ECG ---
Date Performed: 01/14/2019 Time Performed: 19:03:28 PTAGE: 58 years EKG: SUPRAVENTRICULAR TACHYCARDIA Versus atrial flutter with two to one block NONSPECIFIC ST & T -WAVE ABNORMALITY ABNORMAL ECG No significant change from prior electrocardiogram. PREVIOUS TRACING : 05/28/2018 06.28 DOCTOR: Preston Malhotra Interpretating Date/Time 01/14/2019 19:30:58
[2019-01-14] MEDS: levETIRAcetam 500 MG Tablet PO SCH (20:36)
[2019-01-14] MEDS: Senna/Docusate Sodium 8.6/50 MG Tablet PO SCH (20:37)
--- NOTE | 2019-01-14 22:10 | MG ---
cc: Neymar Andres MD EEG RECORD NUMBER: [id number] INDICATION: 8-13 Hz activity, 10-40 microvolts occurring, increased fast frequencies. Good EEG variability reactivity. Driving photic stimulation. Single lead EKG showing sinus rhythm. INTERPRETATION: Normal awake electroencephalogram with increased fast frequencies. No epileptic activity. Clinical correlation. MD MARIA ELENA Hartman/emilee , 09:54 PM , 09:57 PM
[2019-01-14 22:52] LABS: Hepatitis A IgM Antibody Nonreactive (Nonreactive); Hepatitits B Surface Antigen Nonreactive (Nonreactive)
[2019-01-15 06:58] LABS: Bilirubin,Urine Negative (Negative); Clarity,Urine Clear (Clear); Color,Urine Yellow (Yellw/Straw); Glucose,Urine (UA) Negative (Negative); Leukocyte Esterase,Urine Negative (Negative); Nitrite,Urine Negative (Negative); Specific Gravity,Urine 1.012 (1.002-1.035)
[2019-01-15 07:01] LABS: Urobilinogen,Urine 0.2 mg/dL (Less than 2)
[2019-01-15 07:04] LABS: Baso % (Auto) 0.6 % (0.0-2.0); Eos # (Auto) 0.1 th/mm3 (0.0-0.4); Eos % (Auto) 2.1 % (0.0-4.0); Hematocrit 36.5 % (39.0-51.0); Hemoglobin 12.4 gm/dL (13.0-17.0); Lymph # (Auto) 0.7 th/mm3 (1.0-4.8); Lymph % (Auto) 25.8 % (9.0-44.0); Mean Corpuscular Hemoglobin 34.7 pg (27.0-34.0); Mono # (Auto) 0.2 th/mm3 (0.0-0.9); Mono % (Auto) 8.6 % (0.0-8.0); Neut # (Auto) 1.6 th/mm3 (1.8-7.7); Neut % (Auto) 62.9 % (16.0-70.0); Platelet Count 51 th/mm3 (150-450); Red Blood Count 3.58 mil/mm3 (4.50-5.90); Red Cell Distribution Width 13.7 % (11.6-17.2); White Blood Count 2.6 th/mm3 (4.0-11.0)
[2019-01-15 07:05] LABS: Amphetamine Screen,Urine Neg (Neg); Barbiturate Screen,Urine Neg (Neg); Cannabinoid Screen,Urine Pos (Neg); Cocaine Screen,Urine Neg (Neg)
[2019-01-15 07:14] LABS: Opiate Screen,Urine Neg (Neg)
[2019-01-15 07:36] LABS: Albumin 3.5 g/dL (3.4-5.0); Anion Gap 10 meq/L (5-15); Aspartate Aminotransferase 111 U/L (15-37); Blood Urea Nitrogen 12 mg/dL (7-18); Calcium 8.6 mg/dL (8.5-10.1); Carbon Dioxide 24.2 meq/L (21.0-32.0); Chloride 101 meq/L (98-107); Glomerular Filtration Rate Greater Than 89 mL/min (>89); Glucose,Random 90 mg/dL (74-106); Potassium 3.4 meq/L (3.5-5.1); Sodium 135 meq/L (136-145)
[2019-01-15 07:38] LABS: Alanine Aminotransferase 78 U/L (12-78); Alkaline Phosphatase 89 U/L (45-117); Creatine Kinase 577 U/L (39-308); Total Protein 7.4 g/dL (6.4-8.2)
[2019-01-15] MEDS: Sod Chloride 0.9% Inj 1,000 ML IV.CONT SCH ×4 (07:44→21:28)
[2019-01-15 07:54] LABS: CKMB Percent 1.2 % (0.0-4.0); Creatine Kinase MB 6.8 ng/mL (0.5-3.6)
[2019-01-15] MEDS: Senna/Docusate Sodium 8.6/50 MG Tablet PO SCH ×2 (08:56→20:19)
[2019-01-15] MEDS: levETIRAcetam 500 MG Tablet PO SCH ×2 (08:56→20:18)
[2019-01-15] MEDS: Multivitamin Inj 10 ML, Thiamine Inj 100 MG, Folic Acid Inj 1 MG in Sodium Chlor 0.9% I... IV.SIG SCH (12:09)
--- NOTE | 2019-01-15 12:33 | P.PNFP ---
Subjective Interval history: Patient was seen and examined this morning. He notes he has an appetite and wants to eat this morning. He does feel shaky. He does not endorse any fevers, chills, nausea, vomiting, chest pain, shortness of breath. He states that he typically drinks a 6 pack of beer daily. He states that he is interested in quitting but has used resources at [facility] before and did not like it. <Diomedes Shannon Deluca - 01/15/19 12:33> Results - Labs Result diagrams: 01/16/19 06:35 01/16/19 06:35 <ChandniMacie sullivan - 01/16/19 09:28> Abnormal lab results 01/16/19 01/16/19 01/16/19 Range/Units 06:35 06:35 06:35 WBC 2.7 L (4.0-11.0) th/mm3 RBC 3.34 L (4.50-5.90) mil/mm3 Hgb 11.8 L (13.0-17.0) gm/dL Hct 34.5 L (39.0-51.0) % MCV 103.4 H (80.0-100.0) fL MCH 35.3 H (27.0-34.0) pg Plt Count 42 L (150-450) th/mm3 Garrett % (Auto) 9.0 H (0.0-8.0) % Eos % (Auto) 4.4 H (0.0-4.0) % Neut # (Auto) 1.7 L (1.8-7.7) th/mm3 Lymph # (Auto) 0.6 L (1.0-4.8) th/mm3 Total Bilirubin 1.3 H (0.2-1.0) mg/dL AST 95 H (15-37) U/L Ammonia 46 H (11-32) mcmol/L Short CBC 01/16/19 Range/Units 06:35 WBC 2.7 L (4.0-11.0) th/mm3 Hgb 11.8 L (13.0-17.0) gm/dL Hct 34.5 L (39.0-51.0) % Plt Count 42 L (150-450) th/mm3 BMP 01/16/19 06:35 Sodium 137 Potassium 3.6 Chloride 106 Carbon Dioxide 21.3 BUN 13 Creatinine 0.79 Calcium 8.6 Liver Function 01/16/19 Range/Units 06:35 Total Bilirubin 1.3 H (0.2-1.0) mg/dL AST 95 H (15-37) U/L ALT 75 (12-78) U/L Alkaline Phosphatase 96 (45-117) U/L Albumin 3.4 (3.4-5.0) g/dL <Macie Gilbert - 01/16/19 09:28> Abnormal lab results 01/14/19 01/14/19 01/15/19 Range/Units 14:08 14:08 06:20 WBC (4.0-11.0) th/mm3 RBC (4.50-5.90) mil/mm3 Hgb (13.0-17.0) gm/dL Hct (39.0-51.0) % MCV (80.0-100.0) fL MCH (27.0-34.0) pg Plt Count (150-450) th/mm3 Garrett % (Auto) (0.0-8.0) % Neut # (Auto) (1.8-7.7) th/mm3 Lymph # (Auto) (1.0-4.8) th/mm3 Sodium (136-145) meq/L Potassium (3.5-5.1) meq/L Total Bilirubin (0.2-1.0) mg/dL AST (15-37) U/L Ammonia 46 H (11-32) mcmol/L Total Creatine Kinase (39-308) U/L CK-MB (CK-2) (0.5-3.6) ng/mL Troponin I Less than 0.02 L (0.02-0.05) ng/mL Urine Ketones Trace H (Negative) mg/dL U Benzodiazepines Scrn (Neg) U Cannabinoids Screen (Neg) 01/15/19 01/15/19 01/15/19 Range/Units 06:20 06:33 06:33 WBC 2.6 L D (4.0-11.0) th/mm3 RBC 3.58 L (4.50-5.90) mil/mm3 Hgb 12.4 L (13.0-17.0) gm/dL Hct 36.5 L (39.0-51.0) % MCV 102.0 H D (80.0-100.0) fL MCH 34.7 H (27.0-34.0) pg Plt Count 51 L D (150-450) th/mm3 Garrett % (Auto) 8.6 H (0.0-8.0) % Neut # (Auto) 1.6 L (1.8-7.7) th/mm3 Lymph # (Auto) 0.7 L (1.0-4.8) th/mm3 Sodium 135 L (136-145) meq/L Potassium 3.4 L D (3.5-5.1) meq/L Total Bilirubin 1.5 H (0.2-1.0) mg/dL AST 111 H (15-37) U/L Ammonia (11-32) mcmol/L Total Creatine Kinase 577 H (39-308) U/L CK-MB (CK-2) 6.8 H (0.5-3.6) ng/mL Troponin I (0.02-0.05) ng/mL Urine Ketones (Negative) mg/dL U Benzodiazepines Scrn Pos H (Neg) U Cannabinoids Screen Pos H (Neg) 01/15/19 Range/Units 06:33 WBC (4.0-11.0) th/mm3 RBC (4.50-5.90) mil/mm3 Hgb (13.0-17.0) gm/dL Hct (39.0-51.0) % MCV (80.0-100.0) fL MCH (27.0-34.0) pg Plt Count (150-450) th/mm3 Garrett % (Auto) (0.0-8.0) % Neut # (Auto) (1.8-7.7) th/mm3 Lymph # (Auto) (1.0-4.8) th/mm3 Sodium (136-145) meq/L Potassium (3.5-5.1) meq/L Total Bilirubin (0.2-1.0) mg/dL AST (15-37) U/L Ammonia 53 H (11-32) mcmol/L Total Creatine Kinase (39-308) U/L CK-MB (CK-2) (0.5-3.6) ng/mL Troponin I (0.02-0.05) ng/mL Urine Ketones (Negative) mg/dL U Benzodiazepines Scrn (Neg) U Cannabinoids Screen (Neg) Short CBC 01/15/19 Range/Units 06:33 WBC 2.6 L D (4.0-11.0) th/mm3 Hgb 12.4 L (13.0-17.0) gm/dL Hct 36.5 L (39.0-51.0) % Plt Count 51 L D (150-450) th/mm3 BMP 01/15/19 06:33 Sodium 135 L Potassium 3.4 L D Chloride 101 Carbon Dioxide 24.2 BUN 12 Creatinine 0.81 Calcium 8.6 Cardiac Enzymes 01/14/19 01/15/19 Range/Units 14:08 06:33 Total Creatine Kinase 577 H (39-308) U/L CK-MB (CK-2) 6.8 H (0.5-3.6) ng/mL Troponin I Less than 0.02 L (0.02-0.05) ng/mL Liver Function 01/15/19 Range/Units 06:33 Total Bilirubin 1.5 H (0.2-1.0) mg/dL AST 111 H (15-37) U/L ALT 78 (12-78) U/L Alkaline Phosphatase 89 (45-117) U/L Albumin 3.5 D (3.4-5.0) g/dL Urine 01/15/19 Range/Units 06:20 Urine Color Yellow (Yellw/Straw) Urine Clarity Clear (Clear) Urine pH 8.0 (5.0-8.5) Ur Specific [place] 1.012 (1.002-1.035) Urine Protein Negative (Neg-Trace) mg/dL Urine Glucose (UA) Negative (Negative) mg/dL <Diomedes DelucaShannon L - 01/15/19 12:33> - Imaging Impressions Elbow X-Ray 01/15/19 00:00 CONCLUSION: No acute fracture Elbow X-Ray 01/15/19 00:00 CONCLUSION: Degenerative changes without fracture. Head CT 01/15/19 00:00 CONCLUSION: 1. No acute findings. . . <Macie Gilbert - 01/16/19 09:28> Physical Exam Vital signs: Vital Signs 01/15/19 12:15 01/15/19 17:15 01/15/19 18:15 Temperature 99.7 F H 98.1 F 98.0 F Pulse Rate 86 106 H 110 H Respiratory Rate 16 22 22 Blood Pressure 134/81 130/99 H 128/89 Pulse Oximetry 97 01/15/19 18:30 01/15/19 19:15 01/15/19 20:15 Temperature 98.0 F 98.1 F 98.2 F Pulse Rate 110 H 103 H 103 H Respiratory Rate 20 20 20 Blood Pressure 128/89 126/82 126/88 Pulse Oximetry 96 97 97 01/15/19 23:40 01/16/19 00:15 01/16/19 04:25 Temperature 98.3 F 98.3 F 98.5 F Pulse Rate 93 H 93 H 90 Respiratory Rate 18 20 18 Blood Pressure 141/87 H 141/87 H 127/85 Pulse Oximetry 97 97 96 01/16/19 08:00 01/16/19 08:15 Temperature 97.6 F 97.6 F Pulse Rate 83 83 Respiratory Rate 16 16 Blood Pressure 118/63 118/63 Pulse Oximetry 96 96 Intake & Output 01/15/19 01/16/19 01/16/19 18:59 06:59 18:59 Intake Total 511.2 / 511.2 1000 / 1000 Balance 511.2 / 511.2 1000 / 1000 Weight 69.5 kg Intake: IV 511.2 / 511.2 1000 / 1000 NS Inj 1,000 ML @ 100 mls/hr IV 1000 / 1000 .CONT .Q10H [facility] Rx#:[id number] MVI-12 Inj 10 ML Thiamine Inj 511.2 / 511.2 100 MG Folvite Inj 1 MG In NS Inj 500 ML @ 127.8 mls/hr IV. SIG Q24H [facility]IANA Rx#:[id number] Other: # Incontinent Voids 3 Date of Last Bowel Movement 01/15/19 01/15/19 01/15/19 # Bowel Movements 4 # Incontinent Bowel Movements 2 <Vey,Macie - 01/16/19 09:28> Vital Signs 01/14/19 13:00 01/14/19 13:06 01/14/19 16:00 Temperature 99.0 F Pulse Rate 146 H 99 H 124 H Respiratory Rate 26 H 18 20 Blood Pressure 140/93 H 132/81 Pulse Oximetry 97 98 01/14/19 16:54 01/14/19 19:55 01/14/19 23:40 Temperature 98.2 F 98.0 F Pulse Rate 102 H 113 H 95 H Respiratory Rate 18 18 Blood Pressure 118/75 128/79 Pulse Oximetry 97 96 01/15/19 04:31 01/15/19 05:20 01/15/19 08:10 Temperature 97.7 F 98.8 F Pulse Rate 87 88 Respiratory Rate 18 18 Blood Pressure 131/80 126/90 Pulse Oximetry 96 96 96 01/15/19 11:52 Temperature 98.2 F Pulse Rate 73 Respiratory Rate 18 Blood Pressure 107/57 L Pulse Oximetry 94 L Intake & Output 01/14/19 01/15/19 01/15/19 18:59 06:59 18:59 Intake Total 1511.2 / 1511.2 Output Total 275 / 275 300 / 300 Balance 1236.2 / 1236.2 -300 / -300 Weight 58.967 kg 68.9 kg Intake: IV 1511.2 / 1511.2 MVI-12 Inj 10 ML Thiamine Inj 511.2 / 511.2 100 MG Folvite Inj 1 MG In NS Inj 500 ML @ 127.8 mls/hr IV. SIG Q24H [facility] Rx#:[id number] NS Inj 1,000 ML @ Wide Open IV. 1000 / 1000 SIG BOLUS ONE Rx#:[id number] Output: Urine 275 / 275 300 / 300 Other: # Voids 1 3 <Shannon Melgar L - 01/15/19 12:33> Narrative: GENERAL: Disheveled male who is in bed lying flat in no apparent distress. He is resting comfortably prior to evaluation. He is alert and oriented but does appear tired. SKIN: Warm and dry. Small bruise present on right lower back. Does have some skin tears on the bottoms of his feet HEAD: Normocephalic. Atraumatic. Poor dentition with several missing front teeth EYES: PERRLA, EOMI. No scleral icterus. No injection or drainage. NECK: Supple, trachea midline. No JVD or lymphadenopathy. CARDIOVASCULAR: Regular rate and rhythm without murmurs, gallops, or rubs. RESPIRATORY: Breath sounds equal bilaterally. No wheezing or crackles. No accessory muscle use. GASTROINTESTINAL: Abdomen soft, non-tender, nondistended. Normoactive BS EXTREMITIES: Without clubbing or cyanosis. No obvious deformities. He is moving all tremors well NEUROLOGICAL: Awake, alert, and oriented generally. Cranial nerves grossly intact. Extensive tremors present with movement. No asterixis. Coherent speech, memory intact. <Diomedes Shannon Deluca - 01/15/19 12:33> Assessment and Plan - Assessment (1) Seizure Code(s): R56.9 - Unspecified convulsions Status: Acute (2) Alcohol withdrawal Code(s): F10.239 - Alcohol dependence with withdrawal, unspecified Status: Acute (3) Alcohol-induced mood disorder Code(s): F10.94 - Alcohol use, unspecified with alcohol-induced mood disorder Status: Acute (4) Pancytopenia Code(s): D61.818 - Other pancytopenia Status: Acute <Macie Gilbert - 01/16/19 09:28> (1) Seizure Code(s): R56.9 - Unspecified convulsions Status: Acute Plan: Patient is a 58-year-old male who presented 01/14 after witnessed seizure outside of hospital setting. He received 2 doses of Ativan in the ED for a seizure episode and has had no recurrence since this time. Initial troponin negative. EKG showing SVT versus atrial flutter on admission, however, no recurrence of this on telemetry. Heart rate is now normal. Serum EtOH on admission 114. CT head with no contrast showed no abnormalities. Lactic acid normal on admission. Tox screen did show cannabinoids and benzos, however CIWA protocol was initiated prior to collection of urine. UA unremarkable. Neuro consulted for seizure workup, EEG showing no epileptiform activity Keppra 500 mg twice daily was initiated on 01/14. LFTs were elevated on admission, likely related to alcohol abuse. Hepatitis panel negative. HIV negative. CK elevated to 680 on admission, downtrending with IV fluids Ammonia level mildly elevated at 46 with increased is 53 today. We will schedule lactulose 30 mL p.o. daily for now. RPR is still pending Plan: Continue CIWA protocol Continue NS IVF 100mls/hr Vitamin replacement ordered Potassium level 3.5 on 01/15, 40 mEq potassium chloride p.o. administered Monitor labs and monitor clinically as patient is high risk for worsening withdrawal symptoms including potential need for higher level care +/- Precedex Consult case mgmt for assistance in resources for alcohol abuse (2) Alcohol withdrawal Code(s): F10.239 - Alcohol dependence with withdrawal, unspecified Status: Acute Plan: See plan for Seizure (3) Alcohol-induced mood disorder Code(s): F10.94 - Alcohol use, unspecified with alcohol-induced mood disorder Status: Acute Plan: Continue to monitor; neurologically and psychologically stable on exam today. (4) Pancytopenia Code(s): D61.818 - Other pancytopenia Status: Acute Plan: Lab work showing initially evidence of macrocytic anemia with repeat lab work this morning showing depressed cell lines suggestive of marrow suppression. ANC is 1630s, not neutropenic. We will continue to monitor closely. <Diomedes DelucaRobinroel Kimbrough - 01/15/19 12:11> - Assessment and Plan Fluids/Electrolytes/Nutrition/Prophylaxis: Fluids: tolerating PO/NS @ 100ml/hr Electrolytes: monitor and replete as needed Nutrition: Regular diet DVT Prophylaxis: Early ambulation. SCDs bilateral. Platelet count 51K today. GI Prophylaxis: None currently indicated, will monitor PRN anti-HTN: Vasotec 1.25 mg IV every 6 hr PRN for SBP > 180/ and/or DBP > 110 <Diomedes DelucaShannon L - 01/15/19 12:33> Discussed Condition With: Seen and discussed with Drs. Adhikari and Vladimir <Diomedes DelucaShannon L - 01/15/19 12:33> Discharge Planning: Anticipate discharge to home in 1-2 days. Patient does report currently being homeless. Case management consulted as noted <Diomedes DelucaShannon L - 01/15/19 12:33> - Attending Attestation Patient seen and examined the morning of 01/15/2019, discussed with resident team. I agree with assessment and management as documented and discussed with me. Pt reports still feeling shaky, but better overall. He feels hungry and would like to try eating. <Macie Gilbert - 01/16/19 09:28>
[2019-01-15] MEDS: Haloperidol Inj 5 MG/ML Ampul IV.PUSH PRN ×3 (17:48→20:19)
--- NOTE | 2019-01-15 18:05 | XR ---
EXAM DATE: 01/15/2019 6:02 PM EST AGE/SEX: 58 years / Male INDICATIONS: Pain from fall on posterior left elbow. CLINICAL DATA: This is the patient's initial encounter. Patient reports that signs and symptoms have been present for 1 day and indicates a pain score of 3/10. MEDICAL/SURGICAL HISTORY: None. None. COMPARISON: No prior exams available for comparison. FINDINGS: Bony structures are intact and in normal alignment. Joints are intact without dislocation or signifi cant arthropathy. Osseous density is normal. Soft tissues are unremarkable. No radiopaque foreign bodies seen. CONCLUSION: No acute fracture Electronically signed by: Familia Chen MD Board Certified Radiologist 01/15/2019 6:04 PM EST
--- NOTE | 2019-01-15 18:06 | XR ---
EXAM DATE: 01/15/2019 6:03 PM EST AGE/SEX: 58 years / Male INDICATIONS: Pain from fall on posterior right elbow. CLINICAL DATA: This is the patient's initial encounter. Patient reports that signs and symptoms have been present for 1 day and indicates a pain score of 3/10. MEDICAL/SURGICAL HISTORY: None. None. COMPARISON: [facility], HUMERUS RIGHT (MIN 2VWS), 05/28/2018. . FINDINGS: Bony structures are intact and in normal alignment. Degenerative changes. No effusion.. Osseous dens ity is normal. Soft tissues are unremarkable. No radiopaque foreign bodies seen. CONCLUSION: Degenerative changes without fracture. Electronically signed by: Familia Chen MD Board Certified Radiologist 01/15/2019 6:04 PM EST
--- NOTE | 2019-01-15 19:17 | CT ---
EXAM DATE: 01/15/2019 7:10 PM EST AGE/SEX: 58 years / Male INDICATIONS: Fell hitting head 3 days ago. CLINICAL DATA: This is the patient's initial encounter. Patient reports that signs and symptoms have been present for 3 days and indicates a pain score of 5/10. MEDICAL/SURGICAL HISTORY: Seizures. Cervical fracture None. RADIATION DOSE: 50.44 CTDI (mGy) COMPARISON: [facility] [place] W/O [place]AST, 01/14/2019. . TECHNIQUE: CT of the head without contrast. Using automated exposure control and adjustment of the mA and/or kV according to patient size, radiation dose was kept as low as reasonably achievable to ob tain optimal diagnostic quality images. DICOM format image data is available electronically for revi ew and comparison. FINDINGS: Cerebrum: The ventricles are normal for age. No evidence of midline shift, mass lesion, hemorrhage or acute infarction. No extraaxial fluid collections are seen. Posterior Fossa: The cerebellum and brainstem are intact. The 4th ventricle is midline. The cerebe llopontine angle is unremarkable. Extracranial: The visualized portion of the orbits is intact. Skull: The calvaria is intact. No evidence of skull fracture. CONCLUSION: 1. No acute findings. . . Electronically signed by: Trevor Pacheco MD Board Certified Radiologist 01/15/2019 7:15 PM EST
[2019-01-16] MEDS: Sod Chloride 0.9% Inj 1,000 ML IV.CONT SCH ×3 (04:14→12:33)
[2019-01-16 07:04] LABS: Baso % (Auto) 0.7 % (0.0-2.0); Eos # (Auto) 0.1 th/mm3 (0.0-0.4); Eos % (Auto) 4.4 % (0.0-4.0); Hematocrit 34.5 % (39.0-51.0); Hemoglobin 11.8 gm/dL (13.0-17.0); Lymph # (Auto) 0.6 th/mm3 (1.0-4.8); Mean Corpuscular HGB Conc 34.2 % (32.0-36.0); Mean Corpuscular Hemoglobin 35.3 pg (27.0-34.0); Mean Corpuscular Volume 103.4 fL (80.0-100.0); Mean Platelet Volume 8.5 fL (7.0-11.0); Mono # (Auto) 0.2 th/mm3 (0.0-0.9); Neut # (Auto) 1.7 th/mm3 (1.8-7.7); Neut % (Auto) 62.9 % (16.0-70.0); Platelet Count 42 th/mm3 (150-450); Red Blood Count 3.34 mil/mm3 (4.50-5.90); Red Cell Distribution Width 13.5 % (11.6-17.2); White Blood Count 2.7 th/mm3 (4.0-11.0)
[2019-01-16 07:28] LABS: Albumin 3.4 g/dL (3.4-5.0); Anion Gap 10 meq/L (5-15); Aspartate Aminotransferase 95 U/L (15-37); Blood Urea Nitrogen 13 mg/dL (7-18); Calcium 8.6 mg/dL (8.5-10.1); Carbon Dioxide 21.3 meq/L (21.0-32.0); Chloride 106 meq/L (98-107); Glomerular Filtration Rate Greater Than 89 mL/min (>89); Glucose,Random 86 mg/dL (74-106); Potassium 3.6 meq/L (3.5-5.1); Sodium 137 meq/L (136-145)
[2019-01-16 07:29] LABS: Alanine Aminotransferase 75 U/L (12-78)
[2019-01-16 07:31] LABS: Alkaline Phosphatase 96 U/L (45-117); Total Protein 7.3 g/dL (6.4-8.2)
[2019-01-16] MEDS: levETIRAcetam 500 MG Tablet PO SCH (09:04)
[2019-01-16] MEDS: Senna/Docusate Sodium 8.6/50 MG Tablet PO SCH (09:04)
--- NOTE | 2019-01-16 11:08 | P.PNFP ---
Subjective Interval history: Patient seen and examined at bedside this am. Overnight patient fell and hit his head as he was trying to go to the bathroom. Ct head was order and it was negative for any acute findings. He also had abrasion of elbows BL and xray showed no fx. This morning patient states that overall he feels well. he does not remember what happened when he fell. He denies any WALSH, vision issues, cp, sob, fever, chill, n/v, or dizziness. His tremors have improved compared to admission. Endorses diarrhea, non-bloody, about 3 times since yesterday, mild abd cramping associated with the diarrhea. He is tolerating po intake well. Patient does report chronic issues of numbness/ tingling of feet BL. No other complaints. <Tristian Eng - 01/16/19 16:14> Results - Labs Result diagrams: 01/16/19 06:35 01/16/19 06:35 <Macie Gilbert - 01/16/19 21:19> Abnormal lab results 01/16/19 01/16/19 01/16/19 Range/Units 06:35 06:35 06:35 WBC 2.7 L (4.0-11.0) th/mm3 RBC 3.34 L (4.50-5.90) mil/mm3 Hgb 11.8 L (13.0-17.0) gm/dL Hct 34.5 L (39.0-51.0) % MCV 103.4 H (80.0-100.0) fL MCH 35.3 H (27.0-34.0) pg Plt Count 42 L (150-450) th/mm3 [place] % (Auto) 9.0 H (0.0-8.0) % Eos % (Auto) 4.4 H (0.0-4.0) % Neut # (Auto) 1.7 L (1.8-7.7) th/mm3 Lymph # (Auto) 0.6 L (1.0-4.8) th/mm3 Total Bilirubin 1.3 H (0.2-1.0) mg/dL AST 95 H (15-37) U/L Ammonia 46 H (11-32) mcmol/L Short CBC 01/16/19 Range/Units 06:35 WBC 2.7 L (4.0-11.0) th/mm3 Hgb 11.8 L (13.0-17.0) gm/dL Hct 34.5 L (39.0-51.0) % Plt Count 42 L (150-450) th/mm3 BMP 01/16/19 06:35 Sodium 137 Potassium 3.6 Chloride 106 Carbon Dioxide 21.3 BUN 13 Creatinine 0.79 Calcium 8.6 Liver Function 01/16/19 Range/Units 06:35 Total Bilirubin 1.3 H (0.2-1.0) mg/dL AST 95 H (15-37) U/L ALT 75 (12-78) U/L Alkaline Phosphatase 96 (45-117) U/L Albumin 3.4 (3.4-5.0) g/dL <VladimirMacie - 01/16/19 21:19> Abnormal lab results 01/16/19 01/16/19 01/16/19 Range/Units 06:35 06:35 06:35 WBC 2.7 L (4.0-11.0) th/mm3 RBC 3.34 L (4.50-5.90) mil/mm3 Hgb 11.8 L (13.0-17.0) gm/dL Hct 34.5 L (39.0-51.0) % MCV 103.4 H (80.0-100.0) fL MCH 35.3 H (27.0-34.0) pg Plt Count 42 L (150-450) th/mm3 [place] % (Auto) 9.0 H (0.0-8.0) % Eos % (Auto) 4.4 H (0.0-4.0) % Neut # (Auto) 1.7 L (1.8-7.7) th/mm3 Lymph # (Auto) 0.6 L (1.0-4.8) th/mm3 Total Bilirubin 1.3 H (0.2-1.0) mg/dL AST 95 H (15-37) U/L Ammonia 46 H (11-32) mcmol/L Short CBC 01/16/19 Range/Units 06:35 WBC 2.7 L (4.0-11.0) th/mm3 Hgb 11.8 L (13.0-17.0) gm/dL Hct 34.5 L (39.0-51.0) % Plt Count 42 L (150-450) th/mm3 BMP 01/16/19 06:35 Sodium 137 Potassium 3.6 Chloride 106 Carbon Dioxide 21.3 BUN 13 Creatinine 0.79 Calcium 8.6 Liver Function 01/16/19 Range/Units 06:35 Total Bilirubin 1.3 H (0.2-1.0) mg/dL AST 95 H (15-37) U/L ALT 75 (12-78) U/L Alkaline Phosphatase 96 (45-117) U/L Albumin 3.4 (3.4-5.0) g/dL <Tristian Eng - 01/16/19 11:08> - Imaging Impressions Elbow X-Ray 01/15/19 00:00 CONCLUSION: No acute fracture Elbow X-Ray 01/15/19 00:00 CONCLUSION: Degenerative changes without fracture. Head CT 01/15/19 00:00 CONCLUSION: 1. No acute findings. . . <Tristian Eng - 01/16/19 11:08> Physical Exam Vital signs: Vital Signs 01/15/19 23:40 01/16/19 00:15 01/16/19 04:25 Temperature 98.3 F 98.3 F 98.5 F Pulse Rate 93 H 93 H 90 Respiratory Rate 18 20 18 Blood Pressure 141/87 H 141/87 H 127/85 Pulse Oximetry 97 97 96 01/16/19 08:00 01/16/19 08:15 01/16/19 12:00 Temperature 97.6 F 97.6 F 97.8 F Pulse Rate 83 83 88 Respiratory Rate 16 16 16 Blood Pressure 118/63 118/63 120/80 Pulse Oximetry 96 96 97 01/16/19 16:00 01/16/19 20:20 Temperature 97.9 F 98.7 F Pulse Rate 92 H 88 Respiratory Rate 18 18 Blood Pressure 133/85 133/82 Pulse Oximetry 97 97 Intake & Output 01/16/19 01/16/19 01/17/19 06:59 18:59 06:59 Intake Total 1000 / 1000 511.2 / 511.2 Output Total 800 / 800 Balance 1000 / 1000 -288.8 / -288.8 Weight 69.5 kg Intake: IV 1000 / 1000 511.2 / 511.2 NS Inj 1,000 ML @ 100 mls/hr IV 1000 / 1000 .CONT .Q10H [facility] Rx#:[id number] MVI-12 Inj 10 ML Thiamine Inj 511.2 / 511.2 100 MG Folvite Inj 1 MG In NS Inj 500 ML @ 127.8 mls/hr IV. SIG Q24H [facility] Rx#:[id number] Output: Urine 800 / 800 Other: # Voids 2 # Incontinent Voids 3 Date of Last Bowel Movement 01/15/19 01/15/19 <Macie Gilbert - 01/16/19 21:19> Vital Signs 01/15/19 12:15 01/15/19 17:15 01/15/19 18:15 Temperature 99.7 F H 98.1 F 98.0 F Pulse Rate 86 106 H 110 H Respiratory Rate 16 22 22 Blood Pressure 134/81 130/99 H 128/89 Pulse Oximetry 97 01/15/19 18:30 01/15/19 19:15 01/15/19 20:15 Temperature 98.0 F 98.1 F 98.2 F Pulse Rate 110 H 103 H 103 H Respiratory Rate 20 20 20 Blood Pressure 128/89 126/82 126/88 Pulse Oximetry 96 97 97 01/15/19 23:40 01/16/19 00:15 01/16/19 04:25 Temperature 98.3 F 98.3 F 98.5 F Pulse Rate 93 H 93 H 90 Respiratory Rate 18 20 18 Blood Pressure 141/87 H 141/87 H 127/85 Pulse Oximetry 97 97 96 01/16/19 08:00 01/16/19 08:15 Temperature 97.6 F 97.6 F Pulse Rate 83 83 Respiratory Rate 16 16 Blood Pressure 118/63 118/63 Pulse Oximetry 96 96 Intake & Output 01/15/19 01/16/19 01/16/19 18:59 06:59 18:59 Intake Total 511.2 / 511.2 1000 / 1000 Balance 511.2 / 511.2 1000 / 1000 Weight 69.5 kg Intake: IV 511.2 / 511.2 1000 / 1000 NS Inj 1,000 ML @ 100 mls/hr IV 1000 / 1000 .CONT .Q10H [facility] Rx#:[id number] MVI-12 Inj 10 ML Thiamine Inj 511.2 / 511.2 100 MG Folvite Inj 1 MG In NS Inj 500 ML @ 127.8 mls/hr IV. SIG Q24H [facility] Rx#:[id number] Other: # Incontinent Voids 3 Date of Last Bowel Movement 01/15/19 01/15/19 01/15/19 # Bowel Movements 4 # Incontinent Bowel Movements 2 <Tristian Eng - 01/16/19 11:08> Narrative: GENERAL: Disheveled male sitting on comode in no apparent distress. SKIN: Warm and dry. Small bruise present on right lower back. Does have some skin tears on the bottoms of his feet HEAD: Normocephalic. Atraumatic. Poor dentition with several missing front teeth EYES: PERRLA, EOMI. No scleral icterus. No injection or drainage. NECK: Supple, trachea midline. No JVD or lymphadenopathy. CARDIOVASCULAR: Regular rate and rhythm without murmurs, gallops, or rubs. RESPIRATORY: Breath sounds equal bilaterally. No wheezing or crackles. No accessory muscle use. GASTROINTESTINAL: Abdomen soft, non-tender, nondistended. Normoactive BS EXTREMITIES: Without clubbing or cyanosis. No obvious deformities. He is moving all tremors well NEUROLOGICAL: Awake, alert, and oriented generally. Cranial nerves grossly intact. Extensive tremors present with movement. No asterixis. Coherent speech, memory intact. 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 He received 2 doses of Ativan in the ED for a seizure episode and has had no recurrence since this time. Initial troponin negative. EKG showing SVT versus atrial flutter on admission, however, no recurrence of this on telemetry. Serum EtOH on admission 114. CT head with no contrast showed no abnormalities. Lactic acid normal on admission. Tox screen did show cannabinoids and benzos, however CIWA protocol was initiated prior to collection of urine. UA unremarkable. Neuro consulted for seizure workup, EEG showing no epileptiform activity Keppra 500 mg twice daily was initiated on 01/14. LFTs were elevated on admission, likely related to alcohol abuse. Hepatitis panel negative. HIV negative. CK elevated to 680 on admission, downtrending with IV fluids Ammonia level mildly elevated at 46-.53->46. We will schedule lactulose 30 mL p.o. daily for now. RPR is still pending Plan: Continue CIWA protocol Most recent CIWA of 18 on morning of 01/16 Continue NS IVF 100mls/hr Vitamin replacement ordered Potassium level WNL Monitor labs and monitor clinically as patient is high risk for worsening withdrawal symptoms including potential need for higher level care +/- Precedex Consult case mgmt for assistance in resources for alcohol abuse (2) Alcohol withdrawal Code(s): F10.239 - Alcohol dependence with withdrawal, unspecified Status: Acute Plan: See plan for Seizure (3) Alcohol-induced mood disorder Code(s): F10.94 - Alcohol use, unspecified with alcohol-induced mood disorder Status: Acute Plan: Continue to monitor; neurologically and psychologically stable on exam today. (4) Pancytopenia Code(s): D61.818 - Other pancytopenia Status: Acute Plan: Lab work showing initially evidence of macrocytic anemia with repeat lab work this morning showing depressed cell lines suggestive of marrow suppression. ANC is 1630s, not neutropenic. We will continue to monitor closely. (5) Fall Code(s): W19.XXXA - Unspecified fall, initial encounter Status: Acute Plan: Last night patient suffered a fall trying to get to the bathroom. This morning patient stated he does not remember events leading to the fall however he remembers falling. CT head: negative for any acute findings Patient has no complaints today of headache, vision issues or focal neurological deficits <Tristian Eng - 01/16/19 15:51> - Assessment and Plan Fluids/Electrolytes/Nutrition/Prophylaxis: Fluids: tolerating PO/NS @ 100ml/hr Electrolytes: monitor and replete as needed Nutrition: Regular diet DVT Prophylaxis: Early ambulation. SCDs bilateral. Platelet count 51K today. GI Prophylaxis: None currently indicated, will monitor PRN anti-HTN: Vasotec 1.25 mg IV every 6 hr PRN for SBP > 180/ and/or DBP > 110 <Tristian Eng - 01/16/19 11:08> - Attending Attestation Patient seen and examined this morning, discussed with Dr Toney. I agree with assessment and management as documented and discussed with me. Pt continues to have elevated CIWA scores, up to 21 in the last 24 hours. <Macie Gilbert - 01/16/19 21:19>
[2019-01-16] MEDS: Multivitamin Inj 10 ML, Thiamine Inj 100 MG, Folic Acid Inj 1 MG in Sodium Chlor 0.9% I... IV.SIG SCH (12:32)
[2019-01-16 14:16] LABS: RPR Screen For Reflex FTA Nonreactive (Nonreactive)
[2019-01-16] MEDS: Gabapentin 100 MG Capsule PO SCH (17:49)
[2019-01-16] MEDS: LORazepam 1 MG Tablet PO PRN (17:49)
[2019-01-17] MEDS: Senna/Docusate Sodium 8.6/50 MG Tablet PO SCH ×3 (00:04→23:04)
[2019-01-17] MEDS: LORazepam 1 MG Tablet PO PRN ×3 (00:04→23:05)
[2019-01-17] MEDS: levETIRAcetam 500 MG Tablet PO SCH ×3 (00:04→23:04)
[2019-01-17] MEDS: Sod Chloride 0.9% Inj 1,000 ML IV.CONT SCH ×3 (00:05→23:04)
[2019-01-17 06:48] LABS: Eos # (Auto) 0.1 th/mm3 (0.0-0.4); Eos % (Auto) 4.2 % (0.0-4.0); Hematocrit 33.4 % (39.0-51.0); Hemoglobin 11.4 gm/dL (13.0-17.0); Lymph # (Auto) 0.6 th/mm3 (1.0-4.8); Lymph % (Auto) 25.8 % (9.0-44.0); Mean Corpuscular HGB Conc 34.2 % (32.0-36.0); Mean Corpuscular Volume 102.2 fL (80.0-100.0); Mean Platelet Volume 8.8 fL (7.0-11.0); Mono # (Auto) 0.2 th/mm3 (0.0-0.9); Mono % (Auto) 8.2 % (0.0-8.0); Neut # (Auto) 1.5 th/mm3 (1.8-7.7); Neut % (Auto) 60.8 % (16.0-70.0); Platelet Count 45 th/mm3 (150-450); Red Blood Count 3.26 mil/mm3 (4.50-5.90); Red Cell Distribution Width 13.3 % (11.6-17.2); White Blood Count 2.5 th/mm3 (4.0-11.0)
[2019-01-17 06:51] LABS: Albumin 3.3 g/dL (3.4-5.0); Anion Gap 11 meq/L (5-15); Aspartate Aminotransferase 98 U/L (15-37); Blood Urea Nitrogen 11 mg/dL (7-18); Calcium 8.6 mg/dL (8.5-10.1); Chloride 107 meq/L (98-107); Glomerular Filtration Rate Greater Than 89 mL/min (>89); Glucose,Random 98 mg/dL (74-106); Potassium 3.3 meq/L (3.5-5.1); Sodium 138 meq/L (136-145)
[2019-01-17 06:53] LABS: Alanine Aminotransferase 84 U/L (12-78)
[2019-01-17 06:55] LABS: Alkaline Phosphatase 128 U/L (45-117); Total Protein 7.1 g/dL (6.4-8.2)
[2019-01-17] MEDS: Gabapentin 100 MG Capsule PO SCH ×3 (08:01→17:43)
[2019-01-17 08:07] LABS: Platelet Morphology Normal (Normal)
--- NOTE | 2019-01-17 08:12 | P.PNFP ---
Subjective Interval history: No acute events overnight. Patient sitting in recliner this morning. Nurse at bedside. States that he is still "sweaty and shaky". Most recent CIWA scores, 21,13,18,14 ,11,7. Patient has received 8mg of Ativan over past 24 hours. Still have diarrhea, induced by lactulose. Ammonia level 41 this AM. C.diff negative. Patient states that he is interested in going to [employer]. Still having trouble ambulating. PT consulted yesterday. Denies fevers, CP, SOB, N/V, and abdominal pain. <Mitali Acuña T - 01/17/19 08:12> Results - Labs Result diagrams: 01/17/19 05:55 01/17/19 05:55 <Macie Gilbert - 01/17/19 21:09> Abnormal lab results 01/17/19 01/17/19 01/17/19 Range/Units 05:55 05:55 05:55 WBC 2.5 L (4.0-11.0) th/mm3 RBC 3.26 L (4.50-5.90) mil/mm3 Hgb 11.4 L (13.0-17.0) gm/dL Hct 33.4 L (39.0-51.0) % MCV 102.2 H (80.0-100.0) fL MCH 35.0 H (27.0-34.0) pg Plt Count 45 L (150-450) th/mm3 [place] % (Auto) 8.2 H (0.0-8.0) % Eos % (Auto) 4.2 H (0.0-4.0) % Neut # (Auto) 1.5 L (1.8-7.7) th/mm3 Lymph # (Auto) 0.6 L (1.0-4.8) th/mm3 Platelet Estimate Low L (Normal) Potassium 3.3 L (3.5-5.1) meq/L Carbon Dioxide 20.0 L (21.0-32.0) meq/L AST 98 H (15-37) U/L ALT 84 H (12-78) U/L Alkaline Phosphatase 128 H (45-117) U/L Ammonia 41 H (11-32) mcmol/L Albumin 3.3 L (3.4-5.0) g/dL Short CBC 01/17/19 Range/Units 05:55 WBC 2.5 L (4.0-11.0) th/mm3 Hgb 11.4 L (13.0-17.0) gm/dL Hct 33.4 L (39.0-51.0) % Plt Count 45 L (150-450) th/mm3 BMP 01/17/19 05:55 Sodium 138 Potassium 3.3 L Chloride 107 Carbon Dioxide 20.0 L BUN 11 Creatinine 0.79 Calcium 8.6 Liver Function 01/17/19 Range/Units 05:55 Total Bilirubin 0.7 (0.2-1.0) mg/dL AST 98 H (15-37) U/L ALT 84 H (12-78) U/L Alkaline Phosphatase 128 H (45-117) U/L Albumin 3.3 L (3.4-5.0) g/dL <Macie Gilbert - 01/17/19 21:09> Abnormal lab results 01/17/19 01/17/19 01/17/19 Range/Units 05:55 05:55 05:55 WBC 2.5 L (4.0-11.0) th/mm3 RBC 3.26 L (4.50-5.90) mil/mm3 Hgb 11.4 L (13.0-17.0) gm/dL Hct 33.4 L (39.0-51.0) % MCV 102.2 H (80.0-100.0) fL MCH 35.0 H (27.0-34.0) pg Plt Count 45 L (150-450) th/mm3 [place] % (Auto) 8.2 H (0.0-8.0) % Eos % (Auto) 4.2 H (0.0-4.0) % Neut # (Auto) 1.5 L (1.8-7.7) th/mm3 Lymph # (Auto) 0.6 L (1.0-4.8) th/mm3 Platelet Estimate Low L (Normal) Potassium 3.3 L (3.5-5.1) meq/L Carbon Dioxide 20.0 L (21.0-32.0) meq/L AST 98 H (15-37) U/L ALT 84 H (12-78) U/L Alkaline Phosphatase 128 H (45-117) U/L Ammonia 41 H (11-32) mcmol/L Albumin 3.3 L (3.4-5.0) g/dL Short CBC 01/17/19 Range/Units 05:55 WBC 2.5 L (4.0-11.0) th/mm3 Hgb 11.4 L (13.0-17.0) gm/dL Hct 33.4 L (39.0-51.0) % Plt Count 45 L (150-450) th/mm3 BMP 01/17/19 05:55 Sodium 138 Potassium 3.3 L Chloride 107 Carbon Dioxide 20.0 L BUN 11 Creatinine 0.79 Calcium 8.6 Liver Function 01/17/19 Range/Units 05:55 Total Bilirubin 0.7 (0.2-1.0) mg/dL AST 98 H (15-37) U/L ALT 84 H (12-78) U/L Alkaline Phosphatase 128 H (45-117) U/L Albumin 3.3 L (3.4-5.0) g/dL <Mitali Acuña T - 01/17/19 08:12> Physical Exam Vital signs: Vital Signs 01/16/19 23:55 01/17/19 04:50 01/17/19 07:20 Temperature 98.3 F 98.0 F 98.2 F Pulse Rate 90 84 87 Respiratory Rate 18 18 16 Blood Pressure 140/89 147/92 H 134/85 Pulse Oximetry 97 96 100 01/17/19 07:58 01/17/19 11:45 01/17/19 12:00 Temperature 97.5 F L Pulse Rate 87 75 Respiratory Rate 18 20 Blood Pressure 150/97 H Pulse Oximetry 98 01/17/19 16:45 01/17/19 21:04 Temperature 97.8 F 97.7 F Pulse Rate 89 83 Respiratory Rate 20 20 Blood Pressure 143/90 H 146/83 H Pulse Oximetry 96 97 Intake & Output 01/17/19 01/17/19 01/18/19 06:59 18:59 06:59 Intake Total 1000 / 1000 1511.2 / 1511.2 Output Total 900 / 900 1475 / 1475 Balance 100 / 100 36.2 / 36.2 Intake: IV 1000 / 1000 1511.2 / 1511.2 NS Inj 1,000 ML @ 100 mls/hr IV 1000 / 1000 1000 / 1000 .CONT .Q10H [facility] Rx#:[id number] MVI-12 Inj 10 ML Thiamine Inj 511.2 / 511.2 100 MG Folvite Inj 1 MG In NS Inj 500 ML @ 127.8 mls/hr IV. SIG Q24H [facility] Rx#:[id number] Output: Urine 900 / 900 1475 / 1475 Other: # Voids 1 Date of Last Bowel Movement 01/17/19 # Bowel Movements 1 <Sarah Gilberte - 01/17/19 21:09> Vital Signs 01/16/19 08:15 01/16/19 12:00 01/16/19 16:00 Temperature 97.6 F 97.8 F 97.9 F Pulse Rate 83 88 92 H Respiratory Rate 16 16 18 Blood Pressure 118/63 120/80 133/85 Pulse Oximetry 96 97 97 01/16/19 20:20 01/16/19 23:55 01/17/19 04:50 Temperature 98.7 F 98.3 F 98.0 F Pulse Rate 88 90 84 Respiratory Rate 18 18 18 Blood Pressure 133/82 140/89 147/92 H Pulse Oximetry 97 97 96 01/17/19 07:20 01/17/19 07:58 Temperature 98.2 F Pulse Rate 87 Respiratory Rate 16 18 Blood Pressure 134/85 Pulse Oximetry 100 Intake & Output 01/16/19 01/17/19 01/17/19 18:59 06:59 18:59 Intake Total 511.2 / 511.2 1000 / 1000 Output Total 800 / 800 900 / 900 Balance -288.8 / -288.8 100 / 100 Intake: IV 511.2 / 511.2 1000 / 1000 NS Inj 1,000 ML @ 100 mls/hr IV 1000 / 1000 .CONT .Q10H [facility] Rx#:[id number] MVI-12 Inj 10 ML Thiamine Inj 511.2 / 511.2 100 MG Folvite Inj 1 MG In NS Inj 500 ML @ 127.8 mls/hr IV. SIG Q24H [facility] Rx#:[id number] Output: Urine 800 / 800 900 / 900 Other: # Voids 2 Date of Last Bowel Movement 01/15/19 <Tico SousaMitali Brannon T - 01/17/19 08:12> Narrative: GENERAL: Disheveled male sitting in recliner, nurse at bedside SKIN: Warm and dry. HEAD: Normocephalic. Atraumatic. Poor dentition with several missing front teeth EYES: PERRLA, EOMI. No scleral icterus. No injection or drainage. NECK: Supple, trachea midline. No JVD or lymphadenopathy. CARDIOVASCULAR: Regular rate and rhythm without murmurs, gallops, or rubs. RESPIRATORY: Breath sounds equal bilaterally. No wheezing or crackles. No accessory muscle use. GASTROINTESTINAL: Abdomen soft, non-tender, nondistended. Normoactive BS EXTREMITIES: Without clubbing or cyanosis. No obvious deformities. He is moving all tremors well NEUROLOGICAL: Awake, alert, and oriented generally. Cranial nerves grossly intact. Extensive tremors present with movement. No asterixis. Coherent speech, memory intact. 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 He received 2 doses of Ativan in the ED for a seizure episode and has had no recurrence since this time. Initial troponin negative. EKG showing SVT versus atrial flutter on admission, however, no recurrence of this on telemetry. Plan: Continue Keppra 500 mg twice daily, initiated on 01/14 by neuro Ammonia levels today 41, improved, continue lactulose 30 mL p.o. daily Continue CIWA protocol Most recent CIWA of 7 this morning, patient has received 8mg of Ativan in the last 24 hours Continue NS IVF 100mls/hr Vitamin replacement ordered Monitor labs and monitor clinically as patient is high risk for worsening withdrawal symptoms including potential need for higher level care +/- Precedex Consult case mgmt for assistance in resources for alcohol abuse, patient is interested in going to [facility] Workup: Serum EtOH on admission 114. CT head with no contrast showed no abnormalities. Lactic acid normal on admission. Tox screen did show cannabinoids and benzos, however CIWA protocol was initiated prior to collection of urine. UA unremarkable. Neuro consulted for seizure workup, EEG showing no epileptiform activity LFTs were elevated on admission, likely related to alcohol abuse. Hepatitis panel negative. HIV negative. CK elevated to 680 on admission, downtrending with IV fluids RPR nonreactive (2) Alcohol withdrawal Code(s): F10.239 - Alcohol dependence with withdrawal, unspecified Status: Acute Plan: See plan for Seizure (3) Alcohol-induced mood disorder Code(s): F10.94 - Alcohol use, unspecified with alcohol-induced mood disorder Status: Acute Plan: Continue to monitor; neurologically and psychologically stable on exam today. (4) Pancytopenia Code(s): D61.818 - Other pancytopenia Status: Acute Plan: Lab work showing initially evidence of macrocytic anemia with repeat lab work showing depressed cell lines suggestive of marrow suppression. ANC is 1630s, not neutropenic. We will continue to monitor closely. (5) Fall Code(s): W19.XXXA - Unspecified fall, initial encounter Status: Acute Plan: Fall on 01/15 CT head: negative for any acute findings Continue with high risk fall precautions PT consulted <Mitali Acuña T - 01/17/19 15:26> - Assessment and Plan Fluids/Electrolytes/Nutrition/Prophylaxis: Fluids: tolerating PO/NS @ 100ml/hr Electrolytes: monitor and replete as needed Nutrition: Regular diet DVT Prophylaxis: Early ambulation. SCDs bilateral. GI Prophylaxis: None currently indicated, will monitor PRN anti-HTN: Vasotec 1.25 mg IV every 6 hr PRN for SBP > 180/ and/or DBP > 110 <Mitali Acuña T - 01/17/19 15:22> - Attending Attestation Patient seen, examined, and discussed this morning with resident team. I agree with assessment and management as documented and discussed with me. Pt reports still feeling shaky. He is eating well without nausea or vomiting he has worked with PT and has a walker in his room. Continue [facility] protocol. <Macie Gilbert - 01/17/19 21:09>
[2019-01-17] MEDS: Multivitamin Inj 10 ML, Thiamine Inj 100 MG, Folic Acid Inj 1 MG in Sodium Chlor 0.9% I... IV.SIG SCH (11:32)
[2019-01-18 07:58] LABS: Baso % (Auto) 1.3 % (0.0-2.0); Eos # (Auto) 0.1 th/mm3 (0.0-0.4); Eos % (Auto) 4.3 % (0.0-4.0); Hematocrit 35.3 % (39.0-51.0); Hemoglobin 12.1 gm/dL (13.0-17.0); Lymph # (Auto) 0.6 th/mm3 (1.0-4.8); Mean Corpuscular HGB Conc 34.4 % (32.0-36.0); Mean Corpuscular Hemoglobin 34.8 pg (27.0-34.0); Mean Corpuscular Volume 101.3 fL (80.0-100.0); Mean Platelet Volume 8.6 fL (7.0-11.0); Mono # (Auto) 0.3 th/mm3 (0.0-0.9); Mono % (Auto) 10.4 % (0.0-8.0); Neut # (Auto) 1.5 th/mm3 (1.8-7.7); Platelet Count 64 th/mm3 (150-450); Red Blood Count 3.48 mil/mm3 (4.50-5.90); Red Cell Distribution Width 13.8 % (11.6-17.2); White Blood Count 2.6 th/mm3 (4.0-11.0)
[2019-01-18] MEDS: Gabapentin 100 MG Capsule PO SCH ×3 (08:04→18:53)
[2019-01-18] MEDS: Senna/Docusate Sodium 8.6/50 MG Tablet PO SCH ×2 (08:04→22:25)
[2019-01-18] MEDS: levETIRAcetam 500 MG Tablet PO SCH ×2 (08:04→22:24)
[2019-01-18] MEDS: Sod Chloride 0.9% Inj 1,000 ML IV.CONT SCH (08:06)
[2019-01-18 08:24] LABS: Anion Gap 9 meq/L (5-15); Blood Urea Nitrogen 10 mg/dL (7-18); Calcium 8.9 mg/dL (8.5-10.1); Carbon Dioxide 21.4 meq/L (21.0-32.0); Chloride 107 meq/L (98-107); Glomerular Filtration Rate Greater Than 89 mL/min (>89); Glucose,Random 94 mg/dL (74-106); Potassium 3.6 meq/L (3.5-5.1); Sodium 137 meq/L (136-145)
--- NOTE | 2019-01-18 08:43 | P.PNFP ---
Subjective Interval history: No acute events overnight. Patient resting in bed, watching TV. States that he still has some tremors, but improved. Denies fevers, N/V, CP, SOB, and abdominal pain. <Tico LarsMitali T - 01/18/19 09:22> Results - Labs Result diagrams: 01/19/19 07:55 01/19/19 07:55 <Alyce Mello M - 01/19/19 10:39> Abnormal lab results 01/18/19 01/19/19 01/19/19 Range/Units 13:38 07:55 07:55 WBC 3.2 L (4.0-11.0) th/mm3 RBC 3.62 L (4.50-5.90) mil/mm3 Hgb 12.6 L (13.0-17.0) gm/dL Hct 36.8 L (39.0-51.0) % MCV 101.9 H (80.0-100.0) fL MCH 34.7 H (27.0-34.0) pg Plt Count 87 L D (150-450) th/mm3 [place] % (Auto) 12.0 H (0.0-8.0) % Eos % (Auto) 4.7 H (0.0-4.0) % Lymph # (Auto) 0.8 L (1.0-4.8) th/mm3 Platelet Estimate Low L (Normal) Ammonia 38 H (11-32) mcmol/L Folate 19.2 H (3.1-17.5) ng/mL Short CBC 01/19/19 Range/Units 07:55 WBC 3.2 L (4.0-11.0) th/mm3 Hgb 12.6 L (13.0-17.0) gm/dL Hct 36.8 L (39.0-51.0) % Plt Count 87 L D (150-450) th/mm3 BMP 01/19/19 07:55 Sodium 138 Potassium 3.7 Chloride 106 Carbon Dioxide 21.7 BUN 15 Creatinine 0.75 Calcium 9.4 <Alyce Mello - 01/19/19 10:39> Abnormal lab results 01/18/19 Range/Units 07:40 WBC 2.6 L (4.0-11.0) th/mm3 RBC 3.48 L (4.50-5.90) mil/mm3 Hgb 12.1 L (13.0-17.0) gm/dL Hct 35.3 L (39.0-51.0) % MCV 101.3 H (80.0-100.0) fL MCH 34.8 H (27.0-34.0) pg Plt Count 64 L D (150-450) th/mm3 [place] % (Auto) 10.4 H (0.0-8.0) % Eos % (Auto) 4.3 H (0.0-4.0) % Neut # (Auto) 1.5 L (1.8-7.7) th/mm3 Lymph # (Auto) 0.6 L (1.0-4.8) th/mm3 Short CBC 01/18/19 Range/Units 07:40 WBC 2.6 L (4.0-11.0) th/mm3 Hgb 12.1 L (13.0-17.0) gm/dL Hct 35.3 L (39.0-51.0) % Plt Count 64 L D (150-450) th/mm3 [facility] 01/18/19 07:45 Sodium 137 Potassium 3.6 Chloride 107 Carbon Dioxide 21.4 BUN 10 Creatinine 0.78 Calcium 8.9 <Mitali Acuña T - 01/18/19 08:42> Physical Exam Vital signs: Vital Signs 01/18/19 11:41 01/18/19 16:00 01/18/19 17:10 Temperature 98.0 F 98.4 F Pulse Rate 80 82 81 Respiratory Rate 18 20 Blood Pressure 141/91 H 141/93 H Pulse Oximetry 97 97 01/18/19 21:04 01/19/19 00:34 01/19/19 05:01 Temperature 98.1 F 97.9 F 97.7 F Pulse Rate 88 91 H 84 Respiratory Rate 20 20 20 Blood Pressure 142/90 H 153/94 H 133/69 Pulse Oximetry 98 99 97 01/19/19 07:41 Temperature 97.7 F Pulse Rate 89 Respiratory Rate 16 Blood Pressure 148/97 H Pulse Oximetry 97 Intake & Output 01/18/19 01/19/19 01/19/19 18:59 06:59 18:59 Intake Total 200 / 200 480 / 480 Output Total 450 / 450 950 / 950 Balance -250 / -250 -470 / -470 Weight 70.7 kg 69.8 kg Intake: IV 200 / 200 NS Inj 1,000 ML @ 100 mls/hr IV 200 / 200 .CONT .Q10H [facility] Rx#:[id number] Oral 480 / 480 Output: Urine 450 / 450 950 / 950 Other: # Voids 1 3 Date of Last Bowel Movement 01/18/19 # Bowel Movements 1 <Alyce Mello M - 01/19/19 10:39> Vital Signs 01/17/19 11:45 01/17/19 12:00 01/17/19 16:45 Temperature 97.5 F L 97.8 F Pulse Rate 87 75 89 Respiratory Rate 20 20 Blood Pressure 150/97 H 143/90 H Pulse Oximetry 98 96 01/17/19 21:04 01/18/19 00:25 01/18/19 04:51 Temperature 97.7 F 98.3 F 98.1 F Pulse Rate 83 85 83 Respiratory Rate 20 20 20 Blood Pressure 146/83 H 138/82 140/89 Pulse Oximetry 97 97 98 01/18/19 07:51 01/18/19 08:12 Temperature 97.6 F Pulse Rate 83 Respiratory Rate 18 18 Blood Pressure 135/92 H Pulse Oximetry 96 Intake & Output 01/17/19 01/18/19 01/18/19 18:59 06:59 18:59 Intake Total 1511.2 / 1511.2 950 / 950 Output Total 1475 / 1475 Balance 36.2 / 36.2 950 / 950 Weight 70.7 kg Intake: IV 1511.2 / 1511.2 950 / 950 NS Inj 1,000 ML @ 100 mls/hr IV 1000 / 1000 950 / 950 .CONT .Q10H [facility] Rx#:[id number] MVI-12 Inj 10 ML Thiamine Inj 511.2 / 511.2 100 MG Folvite Inj 1 MG In NS Inj 500 ML @ 127.8 mls/hr IV. SIG Q24H [facility] Rx#:[id number] Output: Urine 1475 / 1475 Other: # Voids 1 Date of Last Bowel Movement 01/17/19 # Bowel Movements 1 <Tico LarsMitali Brannon T - 01/18/19 08:42> Narrative: GENERAL: Disheveled male sitting in bed, NAD SKIN: Warm and dry. HEAD: Normocephalic. Atraumatic. Poor dentition with several missing front teeth EYES: PERRLA, EOMI. No scleral icterus. No injection or drainage. NECK: Supple, trachea midline. No JVD or lymphadenopathy. CARDIOVASCULAR: Regular rate and rhythm without murmurs, gallops, or rubs. RESPIRATORY: Breath sounds equal bilaterally. No wheezing or crackles. No accessory muscle use. GASTROINTESTINAL: Abdomen soft, non-tender, nondistended. Normoactive BS EXTREMITIES: Without clubbing or cyanosis. No obvious deformities. He is moving all extremities well. NEUROLOGICAL: Awake, alert, and oriented generally. Cranial nerves grossly intact. Tremors present with movement. No asterixis. Coherent speech, memory intact. <Mitali Acuña T - 01/18/19 10:32> Assessment and Plan - Assessment (1) Seizure Code(s): R56.9 - Unspecified convulsions Status: Acute (2) Alcohol withdrawal Code(s): F10.239 - Alcohol dependence with withdrawal, unspecified Status: Acute (3) Alcohol-induced mood disorder Code(s): F10.94 - Alcohol use, unspecified with alcohol-induced mood disorder Status: Acute (4) Pancytopenia Code(s): D61.818 - Other pancytopenia Status: Acute (5) Fall Code(s): W19.XXXA - Unspecified fall, initial encounter Status: Acute <FunmilayoAlyce Rogers - 01/19/19 10:39> (1) Seizure Code(s): R56.9 - Unspecified convulsions Status: Acute Plan: Patient is a 58-year-old male who presented 01/14 after witnessed seizure outside of hospital setting. He received 2 doses of Ativan in the ED for a seizure episode and has had no recurrence since this time. Plan: Continue Keppra 500 mg twice daily, initiated on 01/14 by neuro Ammonia levels trending down, continue lactulose 30 mL p.o. daily Continue CIWA protocol Most recent CIWA of 7 this morning, patient has received 9mg of Ativan in the last 24 hours Vitamin replacement ordered Monitor labs and monitor clinically as patient is high risk for worsening withdrawal symptoms including potential need for higher level care +/- Precedex Consult case mgmt for assistance in resources for alcohol abuse, patient is interested in going to [facility] Workup: Serum EtOH on admission 114. CT head with no contrast showed no abnormalities. Lactic acid normal on admission. Tox screen did show cannabinoids and benzos, however CIWA protocol was initiated prior to collection of urine. UA unremarkable. Neuro consulted for seizure workup, EEG showing no epileptiform activity LFTs were elevated on admission, likely related to alcohol abuse. Hepatitis panel negative. HIV negative. CK elevated to 680 on admission, downtrending with IV fluids RPR nonreactive (2) Alcohol withdrawal Code(s): F10.239 - Alcohol dependence with withdrawal, unspecified Status: Acute Plan: See plan for Seizure (3) Alcohol-induced mood disorder Code(s): F10.94 - Alcohol use, unspecified with alcohol-induced mood disorder Status: Acute Plan: Continue to monitor; neurologically and psychologically stable on exam today. (4) Pancytopenia Code(s): D61.818 - Other pancytopenia Status: Acute Plan: Stable Lab work showing initially evidence of macrocytic anemia with repeat lab work showing depressed cell lines suggestive of marrow suppression. ANC is 1630s, not neutropenic. We will continue to monitor closely. (5) Fall Code(s): W19.XXXA - Unspecified fall, initial encounter Status: Acute Plan: Fall on 01/15 CT head: negative for any acute findings Continue with high risk fall precautions PT consulted; patient will need wheeled walk and home health PT, patient however is homeless <Mitali Acuña T - 01/18/19 10:27> - Assessment and Plan Fluids/Electrolytes/Nutrition/Prophylaxis: Fluids:none Electrolytes: monitor and replete as needed Nutrition: Regular diet DVT Prophylaxis: Early ambulation. SCDs bilateral. GI Prophylaxis: None currently indicated, will monitor PRN anti-HTN: Vasotec 1.25 mg IV every 6 hr PRN for SBP > 180/ and/or DBP > 110 <Mitali Acuña - 01/18/19 10:32> - Attending Attestation The exam, history, and the medical decision-making described in the above note were completed with the assistance of the resident physician. I reviewed and agree with the findings presented. I attest that I had a [id number] encounter with the patient on the same day, and personally performed and documented my assessment and findings in the medical record. thankfully, he is improving with vitamins, food and stopping alcohol <Alyce Mello - 01/19/19 10:39>
[2019-01-18 08:52] LABS: Platelet Morphology Normal (Normal)
[2019-01-18 08:56] LABS: Creatine Kinase 89 U/L (39-308)
[2019-01-18] MEDS: Multivitamin Inj 10 ML, Thiamine Inj 100 MG, Folic Acid Inj 1 MG in Sodium Chlor 0.9% I... IV.SIG SCH (12:37)
[2019-01-18] MEDS: LORazepam 1 MG Tablet PO PRN ×2 (12:45→22:27)
[2019-01-18] MEDS: Multivitamin/Minerals Therapeutic Tablet PO SCH (13:11)
[2019-01-19 08:11] LABS: Baso % (Auto) 1.2 % (0.0-2.0); Eos # (Auto) 0.2 th/mm3 (0.0-0.4); Eos % (Auto) 4.7 % (0.0-4.0); Hematocrit 36.8 % (39.0-51.0); Hemoglobin 12.6 gm/dL (13.0-17.0); Lymph # (Auto) 0.8 th/mm3 (1.0-4.8); Lymph % (Auto) 26.2 % (9.0-44.0); Mean Corpuscular HGB Conc 34.1 % (32.0-36.0); Mean Corpuscular Hemoglobin 34.7 pg (27.0-34.0); Mean Corpuscular Volume 101.9 fL (80.0-100.0); Mean Platelet Volume 8.7 fL (7.0-11.0); Mono # (Auto) 0.4 th/mm3 (0.0-0.9); Neut # (Auto) 1.8 th/mm3 (1.8-7.7); Neut % (Auto) 55.9 % (16.0-70.0); Platelet Count 87 th/mm3 (150-450); Red Blood Count 3.62 mil/mm3 (4.50-5.90); Red Cell Distribution Width 13.4 % (11.6-17.2); White Blood Count 3.2 th/mm3 (4.0-11.0)
[2019-01-19 08:41] LABS: Anion Gap 10 meq/L (5-15); Blood Urea Nitrogen 15 mg/dL (7-18); Calcium 9.4 mg/dL (8.5-10.1); Carbon Dioxide 21.7 meq/L (21.0-32.0); Chloride 106 meq/L (98-107); Glomerular Filtration Rate Greater Than 89 mL/min (>89); Glucose,Random 95 mg/dL (74-106); Potassium 3.7 meq/L (3.5-5.1); Sodium 138 meq/L (136-145)
[2019-01-19 09:12] LABS: Platelet Morphology Normal (Normal)
[2019-01-19] MEDS: Multivitamin/Minerals Therapeutic Tablet PO SCH (09:25)
[2019-01-19] MEDS: Senna/Docusate Sodium 8.6/50 MG Tablet PO SCH ×2 (09:25→22:06)
[2019-01-19] MEDS: levETIRAcetam 500 MG Tablet PO SCH ×2 (09:25→22:06)
[2019-01-19] MEDS: Gabapentin 100 MG Capsule PO SCH ×3 (09:25→18:20)
[2019-01-19] MEDS: LORazepam 1 MG Tablet PO PRN ×3 (09:31→22:06)
--- NOTE | 2019-01-19 10:04 | P.PNFP ---
Subjective Interval history: Patient reports feeling well. He reports that he has been walking to the bathroom independently without assistance or assistive device. He reports that he is eating well. He denies any other problems. He reports that he would like to go to [facility] inpatient alcohol rehab facility. Discussed plan of care with patient and with case management. <Vikram Antonio - 01/19/19 10:04> Results - Labs Result diagrams: 01/19/19 07:55 01/19/19 07:55 <Alyce Mello - 01/19/19 10:41> Abnormal lab results 01/18/19 01/19/19 01/19/19 Range/Units 13:38 07:55 07:55 WBC 3.2 L (4.0-11.0) th/mm3 RBC 3.62 L (4.50-5.90) mil/mm3 Hgb 12.6 L (13.0-17.0) gm/dL Hct 36.8 L (39.0-51.0) % MCV 101.9 H (80.0-100.0) fL MCH 34.7 H (27.0-34.0) pg Plt Count 87 L D (150-450) th/mm3 [place] % (Auto) 12.0 H (0.0-8.0) % Eos % (Auto) 4.7 H (0.0-4.0) % Lymph # (Auto) 0.8 L (1.0-4.8) th/mm3 Platelet Estimate Low L (Normal) Ammonia 38 H (11-32) mcmol/L Folate 19.2 H (3.1-17.5) ng/mL Short CBC 01/19/19 Range/Units 07:55 WBC 3.2 L (4.0-11.0) th/mm3 Hgb 12.6 L (13.0-17.0) gm/dL Hct 36.8 L (39.0-51.0) % Plt Count 87 L D (150-450) th/mm3 BMP 01/19/19 07:55 Sodium 138 Potassium 3.7 Chloride 106 Carbon Dioxide 21.7 BUN 15 Creatinine 0.75 Calcium 9.4 <Alyce Mello - 01/19/19 10:41> Abnormal lab results 01/18/19 01/18/19 01/19/19 Range/Units 09:08 13:38 07:55 WBC 3.2 L (4.0-11.0) th/mm3 RBC 3.62 L (4.50-5.90) mil/mm3 Hgb 12.6 L (13.0-17.0) gm/dL Hct 36.8 L (39.0-51.0) % MCV 101.9 H (80.0-100.0) fL MCH 34.7 H (27.0-34.0) pg Plt Count 87 L D (150-450) th/mm3 [place] % (Auto) 12.0 H (0.0-8.0) % Eos % (Auto) 4.7 H (0.0-4.0) % Lymph # (Auto) 0.8 L (1.0-4.8) th/mm3 Platelet Estimate Low L (Normal) Ammonia 51 H (11-32) mcmol/L Folate 19.2 H (3.1-17.5) ng/mL 01/19/19 Range/Units 07:55 WBC (4.0-11.0) th/mm3 RBC (4.50-5.90) mil/mm3 Hgb (13.0-17.0) gm/dL Hct (39.0-51.0) % MCV (80.0-100.0) fL MCH (27.0-34.0) pg Plt Count (150-450) th/mm3 [place] % (Auto) (0.0-8.0) % Eos % (Auto) (0.0-4.0) % Lymph # (Auto) (1.0-4.8) th/mm3 Platelet Estimate (Normal) Ammonia 38 H (11-32) mcmol/L Folate (3.1-17.5) ng/mL Short CBC 01/19/19 Range/Units 07:55 WBC 3.2 L (4.0-11.0) th/mm3 Hgb 12.6 L (13.0-17.0) gm/dL Hct 36.8 L (39.0-51.0) % Plt Count 87 L D (150-450) th/mm3 BMP 01/19/19 07:55 Sodium 138 Potassium 3.7 Chloride 106 Carbon Dioxide 21.7 BUN 15 Creatinine 0.75 Calcium 9.4 <Braden R3,Vikram Jay - 01/19/19 10:04> Physical Exam Vital signs: Vital Signs 01/18/19 11:41 01/18/19 16:00 01/18/19 17:10 Temperature 98.0 F 98.4 F Pulse Rate 80 82 81 Respiratory Rate 18 20 Blood Pressure 141/91 H 141/93 H Pulse Oximetry 97 97 01/18/19 21:04 01/19/19 00:34 01/19/19 05:01 Temperature 98.1 F 97.9 F 97.7 F Pulse Rate 88 91 H 84 Respiratory Rate 20 20 20 Blood Pressure 142/90 H 153/94 H 133/69 Pulse Oximetry 98 99 97 01/19/19 07:41 Temperature 97.7 F Pulse Rate 89 Respiratory Rate 16 Blood Pressure 148/97 H Pulse Oximetry 97 Intake & Output 01/18/19 01/19/19 01/19/19 18:59 06:59 18:59 Intake Total 200 / 200 480 / 480 Output Total 450 / 450 950 / 950 Balance -250 / -250 -470 / -470 Weight 70.7 kg 69.8 kg Intake: IV 200 / 200 NS Inj 1,000 ML @ 100 mls/hr IV 200 / 200 .CONT .Q10H [facility] Rx#:[id number] Oral 480 / 480 Output: Urine 450 / 450 950 / 950 Other: # Voids 1 3 Date of Last Bowel Movement 01/18/19 # Bowel Movements 1 <Alyce Mello M - 01/19/19 10:41> Vital Signs 01/18/19 11:41 01/18/19 16:00 01/18/19 17:10 Temperature 98.0 F 98.4 F Pulse Rate 80 82 81 Respiratory Rate 18 20 Blood Pressure 141/91 H 141/93 H Pulse Oximetry 97 97 01/18/19 21:04 01/19/19 00:34 01/19/19 05:01 Temperature 98.1 F 97.9 F 97.7 F Pulse Rate 88 91 H 84 Respiratory Rate 20 20 20 Blood Pressure 142/90 H 153/94 H 133/69 Pulse Oximetry 98 99 97 01/19/19 07:41 Temperature 97.7 F Pulse Rate 89 Respiratory Rate 16 Blood Pressure 148/97 H Pulse Oximetry 97 Intake & Output 01/18/19 01/19/19 01/19/19 18:59 06:59 18:59 Intake Total 200 / 200 480 / 480 Output Total 450 / 450 950 / 950 Balance -250 / -250 -470 / -470 Weight 70.7 kg 69.8 kg Intake: IV 200 / 200 NS Inj 1,000 ML @ 100 mls/hr IV 200 / 200 .CONT .Q10H [facility] Rx#:[id number] Oral 480 / 480 Output: Urine 450 / 450 950 / 950 Other: # Voids 1 3 Date of Last Bowel Movement 01/18/19 # Bowel Movements 1 <Vikram Antonio - 01/19/19 10:04> Narrative: GENERAL: WNWD male sitting in bed, NAD SKIN: Warm and dry. HEAD: Normocephalic. Atraumatic. Poor dentition with several missing front teeth EYES: PERRLA, EOMI. No scleral icterus. No injection or drainage. NECK: Supple, trachea midline. No JVD or lymphadenopathy. CARDIOVASCULAR: Regular rate and rhythm without murmurs, gallops, or rubs. RESPIRATORY: Breath sounds equal bilaterally. No wheezing or crackles. No accessory muscle use. GASTROINTESTINAL: Abdomen soft, non-tender, nondistended. Normoactive BS EXTREMITIES: Without clubbing or cyanosis. No obvious deformities. He is moving all extremities well. NEUROLOGICAL: Awake, alert, and oriented generally. Cranial nerves grossly intact. Tremors present with movement. + clonus. + Dysmetria with finger to nose exam. No significant tremor at rest. Coherent speech, memory intact. Ambulates well without assistance. <Vikram Antonio - 01/19/19 10:04> Assessment and Plan - Assessment (1) Seizure Code(s): R56.9 - Unspecified convulsions Status: Acute (2) Alcohol withdrawal Code(s): F10.239 - Alcohol dependence with withdrawal, unspecified Status: Acute (3) Alcohol-induced mood disorder Code(s): F10.94 - Alcohol use, unspecified with alcohol-induced mood disorder Status: Acute (4) Pancytopenia Code(s): D61.818 - Other pancytopenia Status: Acute (5) Fall Code(s): W19.XXXA - Unspecified fall, initial encounter Status: Acute <Alyce Mello - 01/19/19 10:41> (1) Seizure Code(s): R56.9 - Unspecified convulsions Status: Acute Plan: Patient is a 58-year-old male who presented 01/14 after witnessed seizure outside of hospital setting. He received 2 doses of Ativan in the ED for a seizure episode and has had no recurrence since this time. Plan: Continue Keppra 500 mg twice daily, initiated on 01/14 by neuro Ammonia levels trending down, continue lactulose 30 mL p.o. daily Continue CIWA protocol Most recent CIWA of 12 this morning, patient has decreasing Ativan requirement Vitamin replacement ordered Monitor labs and monitor clinically as patient is high risk for worsening withdrawal symptoms including potential need for higher level care Consult case mgmt for assistance in resources for alcohol abuse, patient is interested in going to inpatient alcohol rehab, which was communicated to CM, who will provide resources. Workup: Serum EtOH on admission 114. CT head with no contrast showed no abnormalities. Lactic acid normal on admission. Tox screen did show cannabinoids and benzos, however CIWA protocol was initiated prior to collection of urine. UA unremarkable. Neuro consulted for seizure workup, EEG showing no epileptiform activity LFTs were elevated on admission, likely related to alcohol abuse. Hepatitis panel negative. HIV negative. CK elevated to 680 on admission, downtrending with IV fluids RPR nonreactive (2) Alcohol withdrawal Code(s): F10.239 - Alcohol dependence with withdrawal, unspecified Status: Acute Plan: See plan for Seizure above (3) Alcohol-induced mood disorder Code(s): F10.94 - Alcohol use, unspecified with alcohol-induced mood disorder Status: Acute Plan: Continue to monitor; neurologically and psychologically stable on exam today. (4) Pancytopenia Code(s): D61.818 - Other pancytopenia Status: Acute Plan: Stable Lab work showing initially evidence of macrocytic anemia with repeat lab work showing depressed cell lines suggestive of marrow suppression. We will continue to monitor. (5) Fall Code(s): W19.XXXA - Unspecified fall, initial encounter Status: Acute Plan: Fall on 01/15 CT head: negative for any acute findings Continue with high risk fall precautions PT consulted; patient will need wheeled walker and home health PT, patient however is homeless <Vikram Antonio - 01/19/19 09:55> - Assessment and Plan Fluids/Electrolytes/Nutrition/Prophylaxis: Fluids:none Electrolytes: monitor and replete as needed Nutrition: Regular diet DVT Prophylaxis: Early ambulation. SCDs bilateral. GI Prophylaxis: None currently indicated, will monitor PRN anti-HTN: Vasotec 1.25 mg IV every 6 hr PRN for SBP > 180/ and/or DBP > 110 <Braden DelucaVikramBill - 01/19/19 10:04> Discussed Condition With: Dr. Tico Quintanilla <Braden DelucaBill - 01/19/19 10:04> - Attending Attestation The exam, history, and the medical decision-making described in the above note were completed with the assistance of the resident physician. I reviewed and agree with the findings presented. I attest that I had a [id number] encounter with the patient on the same day, and personally performed and documented my assessment and findings in the medical record. he is improving daily. will ask case management to investigate [facility] where he can abstain from alcohol and hopefully get a fresh start as his alcohol use will most likely kill him if he does not stop. <Alyce Mello - 01/19/19 10:41>
[2019-01-20 08:33] LABS: Baso % (Auto) 1.3 % (0.0-2.0); Eos # (Auto) 0.2 th/mm3 (0.0-0.4); Eos % (Auto) 4.7 % (0.0-4.0); Hematocrit 35.9 % (39.0-51.0); Hemoglobin 12.2 gm/dL (13.0-17.0); Lymph # (Auto) 0.9 th/mm3 (1.0-4.8); Lymph % (Auto) 27.8 % (9.0-44.0); Mean Corpuscular HGB Conc 33.9 % (32.0-36.0); Mean Corpuscular Hemoglobin 34.8 pg (27.0-34.0); Mean Corpuscular Volume 102.4 fL (80.0-100.0); Mean Platelet Volume 8.6 fL (7.0-11.0); Mono # (Auto) 0.5 th/mm3 (0.0-0.9); Mono % (Auto) 15.7 % (0.0-8.0); Neut # (Auto) 1.6 th/mm3 (1.8-7.7); Neut % (Auto) 50.5 % (16.0-70.0); Platelet Count 95 th/mm3 (150-450); Red Blood Count 3.51 mil/mm3 (4.50-5.90); Red Cell Distribution Width 13.5 % (11.6-17.2); White Blood Count 3.2 th/mm3 (4.0-11.0)
[2019-01-20] MEDS: Senna/Docusate Sodium 8.6/50 MG Tablet PO SCH (08:42)
[2019-01-20] MEDS: levETIRAcetam 500 MG Tablet PO SCH (08:42)
[2019-01-20] MEDS: Gabapentin 100 MG Capsule PO SCH ×2 (08:42→12:13)
[2019-01-20] MEDS: Multivitamin/Minerals Therapeutic Tablet PO SCH (08:42)
[2019-01-20 09:15] LABS: Anion Gap 9 meq/L (5-15); Blood Urea Nitrogen 19 mg/dL (7-18); Calcium 9.1 mg/dL (8.5-10.1); Carbon Dioxide 23.5 meq/L (21.0-32.0); Chloride 107 meq/L (98-107); Glomerular Filtration Rate Greater Than 89 mL/min (>89); Glucose,Random 89 mg/dL (74-106); Potassium 3.9 meq/L (3.5-5.1); Sodium 139 meq/L (136-145)
[2019-01-20 09:42] LABS: Ovalocytes 1+; Platelet Morphology Normal (Normal)
--- NOTE | 2019-01-20 10:25 | P.PNFP ---
Subjective Interval history: Mr Addison is doing very well this morning. He is ready to leave the hospital and ambulates perfectly. He was given all the information about alcohol rehab but "has stuff to do" before he goes for any rehab. We discussed that his alcohol use will kill him if he doesn't stop drinking. He knows this and states he plans to quit. No seizures or any other problems here in the hospital. Results - Labs Result diagrams: 01/20/19 08:06 01/20/19 08:06 Abnormal lab results 01/20/19 01/20/19 01/20/19 Range/Units 08:06 08:06 08:06 WBC 3.2 L (4.0-11.0) th/mm3 RBC 3.51 L (4.50-5.90) mil/mm3 Hgb 12.2 L (13.0-17.0) gm/dL Hct 35.9 L (39.0-51.0) % MCV 102.4 H (80.0-100.0) fL MCH 34.8 H (27.0-34.0) pg Plt Count 95 L (150-450) th/mm3 [place] % (Auto) 15.7 H (0.0-8.0) % Eos % (Auto) 4.7 H (0.0-4.0) % Neut # (Auto) 1.6 L (1.8-7.7) th/mm3 Lymph # (Auto) 0.9 L (1.0-4.8) th/mm3 Platelet Estimate Low L (Normal) Ovalocytes 1+ H (None) BUN 19 H (7-18) mg/dL Ammonia 46 H (11-32) mcmol/L Short CBC 01/20/19 Range/Units 08:06 WBC 3.2 L (4.0-11.0) th/mm3 Hgb 12.2 L (13.0-17.0) gm/dL Hct 35.9 L (39.0-51.0) % Plt Count 95 L (150-450) th/mm3 BMP 01/20/19 08:06 Sodium 139 Potassium 3.9 Chloride 107 Carbon Dioxide 23.5 BUN 19 H Creatinine 0.84 Calcium 9.1 Physical Exam Vital signs: Vital Signs 01/19/19 12:56 01/19/19 17:48 01/19/19 21:04 Temperature 97.2 F L 98.1 F 97.4 F L Pulse Rate 110 H 88 83 Respiratory Rate 20 16 18 Blood Pressure 113/69 101/67 132/85 Pulse Oximetry 98 95 98 01/20/19 00:51 01/20/19 05:12 01/20/19 05:32 Temperature 97.7 F 98.0 F Pulse Rate 93 H 91 H Respiratory Rate 20 20 18 Blood Pressure 112/79 121/83 Pulse Oximetry 98 98 01/20/19 08:36 Temperature 98.2 F Pulse Rate 79 Respiratory Rate 18 Blood Pressure 108/72 Pulse Oximetry 97 Intake & Output 01/19/19 01/20/19 01/20/19 18:59 06:59 18:59 Output Total 650 / 650 Balance -650 / -650 Weight 70 kg Output: Urine 650 / 650 - Constitutional no acute distress - Routine HEENT Exam Head: Present: normocephalic, atraumatic Eye: Present: EOMI. Absent: periorbital swelling ENT: Present: external ear normal. Absent: septal deviation - Routine Neck Exam Present: supple, full ROM, trachea midline. Absent: trauma - Routine Respiratory Exam Present: CTA bilaterally. Absent: accessory muscle use, patient mechanically ventilated - Routine Cardiovascular Exam Present: RRR. Absent: murmur, gallop - Routine Abdominal Exam Present: soft - Routine Extremities Exam Absent: cyanosis, clubbing, edema, amputation - Routine Skin Exam Present: intact, dry, warm. Absent: cyanosis, gangrene - Routine Neurological Exam Present: alert, oriented X3, CN II-XII intact, moving all extremities. Absent: sensory deficit, motor deficit, abnormal gait, hemineglect, tremors - Detailed Neurological Exam: Coma Scale Eye Opening: Spontaneous Verbal Response: Oriented Motor Response: Obey commands [place] Coma Scale Total: 15 - Routine Psychiatric Exam Present: normal affect, normal thought process. Absent: auditory hallucinations , anxious, agitated, paranoid Assessment and Plan - Assessment (1) Seizure Code(s): R56.9 - Unspecified convulsions Status: Acute Plan: Patient is a 58-year-old male who presented 01/14 after witnessed seizure outside of hospital setting. He received 2 doses of Ativan in the ED for a seizure episode and has had no recurrence since this time. He is ambulating perfectly and done with his withdrawal and ready to leave today. Plan: Continue Keppra 500 mg twice daily, initiated on 01/14 by neuro Ammonia levels trending down, continue lactulose 30 mL p.o. daily Continue CIWA protocol, he is better at this point and having no withdrawal. Vitamin replacement ordered Monitor labs and monitor clinically as patient is high risk for worsening withdrawal symptoms including potential need for higher level care Consulted case mgmt for assistance in resources for alcohol abuse, patient is interested in going to inpatient alcohol rehab, which was communicated to CM, who will provide resources. Workup: Serum EtOH on admission 114. CT head with no contrast showed no abnormalities. Lactic acid normal on admission. Tox screen did show cannabinoids and benzos, however CIWA protocol was initiated prior to collection of urine. UA unremarkable. Neuro consulted for seizure workup, EEG showing no epileptiform activity LFTs were elevated on admission, likely related to alcohol abuse. Hepatitis panel negative. HIV negative. CK elevated to 680 on admission, downtrending with IV fluids RPR nonreactive (2) Alcohol withdrawal Code(s): F10.239 - Alcohol dependence with withdrawal, unspecified Status: Acute Plan: See plan for Seizure above. CIWA done as he has finished with his alcohol withdrawal (3) Pancytopenia Code(s): D61.818 - Other pancytopenia Status: Acute Plan: Stable Lab work showing initially evidence of macrocytic anemia with repeat lab work showing depressed cell lines suggestive of marrow suppression. We will continue to monitor. (4) Fall Code(s): W19.XXXA - Unspecified fall, initial encounter Status: Acute Plan: Fall on 01/15 CT head: negative for any acute findings PT consulted; he improved so much and is steady on his feet so he doesn't need PT now - Assessment and Plan Fluids/Electrolytes/Nutrition/Prophylaxis: Fluids:none Electrolytes: monitor and replete as needed Nutrition: Regular diet DVT Prophylaxis: Early ambulation. SCDs bilateral. GI Prophylaxis: None currently indicated, will monitor PRN anti-HTN: Vasotec 1.25 mg IV every 6 hr PRN for SBP > 180/ and/or DBP > 110
[2019-01-20 12:39] VITALS: BP 111/72; PULSE 94; RESP 16; TEMP 97.9; O2SAT 96
--- NOTE | 2019-01-20 14:01 | P.DS ---
Date of admission: 01/14/19 11:37 Primary care physician: No Primary Care Physician Brief History from admission: 58M with PMHx of seizures and alcohol withdrawal presented to the ED by evac for seizures in front of [employer] [facility] at [facility]. patient is a poor historian. Patient reports waking up this morning shaking and feeling unwell. Last reported drink was yesterday in the morning (1 beer). He reports that in order to "keep the shakes off", he drinks 2-3 beers per day. As the day progressed, he reported feeling more dizzy with increasing difficulty in walking and talking. Reports headaches, blurry vision, neck pain, chills, sweats , tremors, muscle cramps. Denies LOC or falling before hospital admission. Denies chest pain, SOB, abdominal pain, blood in stools/urine, nausea, vomiting. Pt received 3mg ativan at the ED after a seizure episode prior to being examined by us. PMHx: seizures, alcohol use, broken neck (C2) PSHx: right ankle surgery Social Hx: homeless for the last 3 years, 1/2 ppd tobacco use for more than 30 years, consumed alcohol since 19yrs old. Denies any illicit drug use or any history of HIV or any STI's other than one episode of gonorrhea in the past. FHx: mother from leukemia, father from cirrhosis, also drank. Both parents when he was young Meds: currently not taking any, reports that he is supposed to be on seizure medication but he can't afford them Allergies: none reported DS: Diagnosis - Discharge Diagnosis (1) Seizure Status: Acute (2) Alcohol withdrawal Status: Acute (3) Alcohol-induced mood disorder Status: Deleted (4) Pancytopenia Status: Acute (5) Fall Status: Acute DS: Medications - Discharge Medications Prescriptions: levetiracetam [Keppra] 500 mg PO BID #180 tab [id number]-calcium-mins [Thera M Plus (ferrous fumarat)] 1 tab PO DAILY # 90 tab thiamine HCl (vitamin B1) 100 mg PO BID #180 tab DS: Summary - Time Spent with Patient Total time spent providing and/or coordinating discharge services: Exam Vital signs: Vital Signs 01/19/19 17:48 01/19/19 21:04 01/20/19 00:51 Temperature 98.1 F 97.4 F L 97.7 F Pulse Rate 88 83 93 H Respiratory Rate 16 18 20 Blood Pressure 101/67 132/85 112/79 Pulse Oximetry 95 98 98 01/20/19 05:12 01/20/19 05:32 01/20/19 08:00 Temperature 98.0 F Pulse Rate 91 H Respiratory Rate 20 18 18 Blood Pressure 121/83 Pulse Oximetry 98 01/20/19 08:36 01/20/19 12:15 Temperature 98.2 F 97.9 F Pulse Rate 79 94 H Respiratory Rate 18 16 Blood Pressure 108/72 111/72 Pulse Oximetry 97 96 Intake & Output 01/19/19 01/20/19 01/20/19 18:59 06:59 18:59 Output Total 650 / 650 Balance -650 / -650 Weight 70 kg Output: Urine 650 / 650 Results Labs on day of discharge: Labs from last 24 hours 01/20/19 01/20/19 01/20/19 08:06 08:06 08:06 WBC 3.2 L RBC 3.51 L Hgb 12.2 L Hct 35.9 L MCV 102.4 H MCH 34.8 H MCHC 33.9 RDW 13.5 Plt Count 95 L MPV 8.6 Prelim Diff (Auto) Slide review pending Neut % (Auto) 50.5 Lymph % (Auto) 27.8 [place]bot % (Auto) 15.7 H Eos % (Auto) 4.7 H Baso % (Auto) 1.3 Neut # (Auto) 1.6 L Lymph # (Auto) 0.9 L Talbot # (Auto) 0.5 Eos # (Auto) 0.2 Baso # (Auto) 0.0 WBC Differential . Diff Scan Auto diff confirmed Differential Comment . Platelet Estimate Low L Platelet Morphology Normal Ovalocytes 1+ H Sodium 139 Potassium 3.9 Chloride 107 Carbon Dioxide 23.5 Anion Gap 9 BUN 19 H Creatinine 0.84 Estimated GFR Greater than 89 Random Glucose 89 Calcium 9.1 Ammonia 46 H - Impressions ITS Impressions Elbow X-Ray 01/15/19 00:00 CONCLUSION: Degenerative changes without fracture. Head CT 01/15/19 00:00 CONCLUSION: 1. No acute findings. . . Discharge Plan - Discharge Disposition Patient Disposition: 01 Discharge Home - Discharge Condition Condition: Stable - Discharge Order Discharge Orders: Discharge Order (Routine); Ordered 01/20/19 Ordered By: Mitali Acuña - Physicians Team Primary Care Provider: Primary Care Venecia Abdul Attending Provider: Alyce Mello Other Providers: Neymar Andres MD
== END 2019-01-20 13:35 | disposition home or self-care (01) | DRG 897 ==
LOC: NEDA 07:00 → NEPE 07:00 → N05 14:20
PROVIDERS: ADMIT Family Medicine; ATTEND Family Medicine
CPT/HCPCS: 70450; 73070; 80048; 80053; 80074; 80076; 80307; 81001; 82140; 82550; 82552; 82746; 82948; 82962; 83605; 83735; 84425; 84484; 85025; 86592; 87389; 87493; 90761; 90774; 90776; 90784; 93005; 95819; 96361; 96374; 96376; 97110; 97116; 97162; 99285; C8952; J1630; J2060; J3411; J7030; J7040